=== PATIENT | male | born 1990 | race Caucasian/White ===

== ENCOUNTER 2024-04-07 15:08 | Inpatient (IN) | payer BC, OTHER ==
[2024-04-07 16:13] LABS: Basophils % (A) 1 %; Eosinophils # (A) 0.2 k/uL (0-0.7); Eosinophils % (A) 4 %; HCT 28.8 % (39.0-53.0); HGB 9.4 gm/dL (13.0-17.5); Lymphocytes # (A) 1.9 k/uL (1.0-4.8); Lymphocytes % (A) 33 %; MCH 28.6 pg (25.0-35.0); MCHC 32.7 g/dL (31.0-37.0); MCV 87.5 fL (80.0-100.0); Mean Platelet Volume 8.1; Monocytes # (A) 0.4 k/uL (0-1.0); Monocytes % (A) 6 %; Neutrophils # (A) 3.2 k/uL (1.3-7.7); Neutrophils % (A) 55 %; Platelet Count 236 k/uL (150-450); RBC 3.29 m/uL (4.30-5.90); WBC 5.8 k/uL (3.8-10.6)
[2024-04-07 16:39] LABS: ALT 25 U/L (4-49); AST 20 U/L (17-59); African American GFR (CKD) >90 (>60 ml/min/1.73 sqM); Albumin 3.4 g/dL (3.5-5.0); Alkaline Phosphatase 58 U/L (38-126); Anion Gap 7 mmol/L; Blood Urea Nitrogen 24 mg/dL (9-20); C Reactive Protein 0.7 mg/dL (<1.0); Calcium 9.2 mg/dL (8.4-10.2); Carbon Dioxide 20 mmol/L (22-30); Chloride 114 mmol/L (98-107); Glucose 97 mg/dL (74-99); Non-African American GFR(CKD) >90 (>60 ml/min/1.73 sqM); Potassium 4.7 mmol/L (3.5-5.1); Sodium 141 mmol/L (137-145); Total Bilirubin 0.5 mg/dL (0.2-1.3)
--- NOTE | 2024-04-07 16:41 | ED ---
General Adult HPI - General Chief complaint: Extremity Injury, Lower Stated complaint: R Foot Infection Time Seen by Provider: 04/07/24 15:17 Source: patient, EMS Mode of arrival: EMS - History of Present Illness Initial comments: This patient is a 33-year-old man with history of diabetes, transferred here from [facility] to have further evaluation related to right foot infection. The patient relates that over the past few days he has been having increasing pain mainly at the calcaneus of the right foot. He states that he does not have great sensation to the foot because he has severe neuropathy, but that the last time he had symptoms like this he had infection and it resulted in amputation of toes of the right foot. The patient does have ulceration to the distal tip of the right second digit. The patient had not noted systemic symptoms. At the other hospital he had x-rays of the foot suggestive of osteomyelitis, he received a dose of Zosyn and vancomycin and was transported here. The patient did also have duplex Doppler of the right lower extremity r eported to be negative for DVT. -: days(s) Location: right, lower extremity Radiation: non-radiation Quality: burning Consistency: constant Improves with: none Worsens with: none Associated Symptoms: denies other symptoms Treatments Prior to Arrival: other - Related Data Home Medications Medication Instructions Recorded Confirmed Atorvastatin [Lipitor] 20 mg PO HS 04/07/24 04/07/24 Insulin Aspart Prot/Insuln Asp 15 units SQ AC-BID PRN 04/07/24 04/07/24 [NovoLOG MIX 70-30 Flexpen] L.acidoph,Paracasei, B.lactis 1 cap PO DAILY 04/07/24 04/07/24 [Probiotic] Metoprolol Tartrate [Lopressor] 25 mg PO BID 04/07/24 04/07/24 lisinopriL 40 mg PO DAILY 04/07/24 04/07/24 Previous Rx's Medication Instructions Recorded Cefepime [Maxipime] 2 gm IVPB Q8H #126 each 04/13/24 Vancomycin 1,750 mg IVPB Q12HR #84 each 04/13/24 metroNIDAZOLE [Flagyl] 500 mg PO TID #90 tab 04/13/24 Acetaminophen Tab [Tylenol] 650 mg PO Q6HR PRN tab 04/14/24 Famotidine [Pepcid] 20 mg PO BID #60 tab 04/14/24 amLODIPine [Norvasc] 10 mg PO DAILY #30 tab 04/14/24 Ondansetron [Zofran] 4 mg PO Q8HR PRN #60 tab 04/18/24 Allergies Allergy/AdvReac Type Severity Reaction Status Date / Time No Known Allergies Allergy Verified 04/07/24 17:36 Review of Systems ROS Statement: Those systems with pertinent positive or pertinent negative responses have been documented in the HPI. ROS Other: All systems not noted in ROS Statement are negative. Constitutional: Denies: fever, chills Respiratory: Denies: cough, dyspnea Cardiovascular: Denies: chest pain, palpitations, edema, syncope Gastrointestinal: Denies: abdominal pain, vomiting, diarrhea Genitourinary: Denies: dysuria, hematuria Musculoskeletal: Reports: as per HPI, arthralgia. 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 History of Any Multi-Drug Resistant Organisms: None Reported Past Surgical History: Orthopedic Surgery Additional Past Surgical History / Comment(s): Left foot 2 first toes amputation, Right foot amp of middle toe and partial of great toe, Left foot surgery for charcots Past Anesthesia/Blood Transfusion Reactions: Previous Problems w/ Anesthesia Additional Past Anesthesia/Blood Transfusion Reaction / Comment(s): Patient verb waking up during one surgery Past Psychological History: No Psychological Hx Reported Smoking Status: Never smoker Past Alcohol Use History: None Reported Past Drug Use History: None Reported - Past Family History Father Family Medical History: CVA/TIA Mother Family Medical History: Diabetes Mellitus General Exam General appearance: alert, in no apparent distress Head exam: Present: atraumatic, normocephalic Eye exam: Present: normal appearance Neck exam: Present: normal inspection Respiratory exam: Present: normal lung sounds bilaterally. Absent: respiratory distress, wheezes, rales, rhonchi, stridor, accessory muscle use Cardiovascular Exam: Present: regular rate, normal rhythm, normal heart sounds. Absent: systolic murmur, diastolic murmur, rubs, gallop GI/Abdominal exam: Present: soft. Absent: distended, tenderness, guarding, rebound, rigid, mass Extremities exam: Present: normal capillary refill. Absent: pedal edema, calf tenderness Right Knee exam: Present: normal inspection, full ROM. Absent: tenderness, swelling Lower Leg exam: Present: normal inspection, full ROM. Absent: tenderness, swelling Ankle exam: Present: normal inspection, full ROM. Absent: tenderness, swelling Foot/Toe exam: Present: swelling (Distal second digit), erythema (The patient does have ulceration to the distal tip of second digit), amputation (Amputation of first and third toes) Neurovascular tendon exam: Present: no vascular compromise, sensory deficit (Chronic). Absent: motor deficit, tendon deficit Back exam: Present: normal inspection Neurological exam: Present: alert. Absent: motor sensory deficit Skin exam: Present: warm, dry, other (Ulceration tip of right second toe). Absent: rash Course Vital Signs 04/07/24 04/07/24 04/07/24 15:16 16:30 17:37 Temperature 98.0 F Pulse Rate 66 69 68 Respiratory 16 16 16 Rate Blood Pressure 140/87 144/89 134/86 O2 Sat by Pulse 99 99 98 Oximetry Medical Decision Making - Medical Decision Making Was pt. sent in by a medical professional or institution (, PA, PALEOLOGIST, urgent care, hospital, or [facility]...) When possible be specific @ -Patient is a transfer from [facility] Did you speak to anyone other than the patient for history (EMS, parent, family, police, friend...)? What history was obtained from this source @ -[No] Did you review nursing and triage notes (agree or disagree)? Why? @ -[I reviewed and agree with nursing and triage notes] Were old charts reviewed (outside hosp., previous admission, EMS record, old EKG, old radiological studies, urgent care reports/EKG's, [facility] records)? Report findings @ -[The transfer charts were reviewed] Differential Diagnosis (chest pain, altered mental status, abdominal pain women, abdominal pain men, vaginal bleeding, weakness, fever, dyspnea, syncope, headache, dizziness, GI bleed, back pain, seizure, CVA, palpatations, mental health, musculoskeletal)? @ -Differential Musculoskeletal fracture, arthritis, septic arthritis, osteomyelitis, bursitis, cellulitis, muscle spasm, nerve compression, DVT, arterial occlusion, This is not meant to be in all inclusive list EKG interpreted by me (3pts min.). @ -[As above] X-rays interpreted by me (1pt min.). @ -[None done] CT interpreted by me (1pt min.). @ -[None done] U/S interpreted by me (1pt. min.). @ -[None done] What testing was considered but not performed or refused? (CT, X-rays, U/S, labs)? Why? @ -[None] What meds were considered but not given or refused? Why? @ -[None] Did you discuss the management of the patient with other professionals (lacy aelxandre i.e. , PA, PALEOLOGIST, lab, RT, psych nurse, social services designee, accountant bookkeeper, teacher, [employer]oc airspace control officer, employment evaluator/case manager)? Give summary @ -[Case discussed with admitting physician and treatment recommendations i ncorporated Was smoking cessation discussed for >3mins.? @ -[No] Was critical care preformed (if so, how long)? @ -[No] Were there social determinants of health that impacted care today? How? (Homel essness, low income, unemployed, alcoholism, drug addiction, transportation, low edu. Level, literacy, decrease access to med. care, [facility], rehab)? @ -[No] Was there de-escalation of care discussed even if they declined (Discuss DNR or withdrawal of care, Hospice)? DNR status @ -[No] What co-morbidities impacted this encounter? (DM, HTN, Smoking, COPD, CAD, Cancer, CVA, ARF, Chemo, Hep., AIDS, mental health diagnosis, sleep apnea, morbid obesity)? @ -[None] Was patient admitted / discharged? Hospital course, mention meds given and route, prescriptions, significant lab abnormalities, going to OR and other pertinent info. @ -Patient will be admitted, antibiotics continued Undiagnosed new problem with uncertain prognosis? @ -[No] Drug Therapy requiring intensive monitoring for toxicity (Heparin, Nitro, Insulin, Cardizem)? @ -[No] Were any procedures done? @ -[No] Diagnosis/symptom? @ -[Osteomyelitis right foot Acute, or Chronic, or Acute on Chronic? @ -[Acute on chronic Uncomplicated (without systemic symptoms) or Complicated (systemic symptoms)? @ -[Uncomplicated Side effects of treatment? @ -[No] Exacerbation, Progression, or Severe Exacerbation? @ -[No] Poses a threat to life or bodily function? How? (Chest pain, [place], [place], pneumonia, PE, COPD, DKA, ARF, appy, cholecystitis, CVA, Diverticulitis, Homicidal, Suicidal, threat to staff... and all critical care pts) @ -This infection poses threat of possible amputation. - Lab Data Result diagrams: 04/12/24 06:15 04/13/24 14:32 Lab Results 04/07/24 04/07/24 04/07/24 Range/Units 16:03 16:03 16:42 WBC 5.8 (3.8-10.6) k/uL RBC 3.29 L (4.30-5.90) m/uL Hgb 9.4 L (13.0-17.5) gm/dL Hct 28.8 L (39.0-53.0) % MCV 87.5 (80.0-100.0) fL MCH 28.6 (25.0-35.0) pg MCHC 32.7 (31.0-37.0) g/dL RDW 14.0 (11.5-15.5) % Plt Count 236 (150-450) k/uL MPV 8.1 Immature Gran % (Auto) % Absolute Nucleated RBC % Neutrophils % 55 % Lymphocytes % 33 % Monocytes % 6 % Eosinophils % 4 % Basophils % 1 % Immature Gran # (0.00-0.04) X 10*3/uL Neutrophils # 3.2 (1.3-7.7) k/uL Lymphocytes # 1.9 (1.0-4.8) k/uL Monocytes # 0.4 (0-1.0) k/uL Eosinophils # 0.2 (0-0.7) k/uL Basophils # 0.0 (0-0.2) k/uL NRBC/100 WBC Diff (0.00-0.01) X 10*3/uL ESR (0-15) mm/Hr Sodium 141 (137-145) mmol/L Potassium 4.7 (3.5-5.1) mmol/L Chloride 114 H (98-107) mmol/L Carbon Dioxide 20 L (22-30) mmol/L Anion Gap 7 mmol/L BUN 24 H (9-20) mg/dL Creatinine 0.96 (0.66-1.25) mg/dL Est GFR (CKD-EPI) (>=60) Est GFR (CKD-EPI)AfAm >90 (>60 ml/min/1.73 sqM) Est GFR (CKD-EPI)NonAf >90 (>60 ml/min/1.73 sqM) BUN/Creatinine Ratio (12.00-20.00) Ratio Glucose 97 (74-99) mg/dL POC Glucose (mg/dL) 103 (70-110) mg/dL POC Glu Chief Executive Or Managing Director ID Laith Joyce [address] Glu mg/dL mg/dL Hemoglobin A1c (<=6.0) % Calcium 9.2 (8.4-10.2) mg/dL Magnesium (1.5-2.4) mg/dL Total Bilirubin 0.5 (0.2-1.3) mg/dL AST 20 (17-59) U/L ALT 25 (4-49) U/L Alkaline Phosphatase 58 (38-126) U/L C-Reactive Protein 0.7 (<1.0) mg/dL Total Protein 6.0 L (6.3-8.2) g/dL Albumin 3.4 L (3.5-5.0) g/dL Globulin (1.6-3.3) g/dL Albumin/Globulin Ratio (1.60-3.17) Ratio Vancomycin Trough ug/mL 04/07/24 04/08/24 04/08/24 Range/Units 21:07 05:14 05:14 WBC 6.74 (3.8-10.6) k/uL RBC 3.39 L (4.30-5.90) m/uL Hgb 9.6 L (13.0-17.5) gm/dL Hct 29.8 L (39.0-53.0) % MCV 87.9 (80.0-100.0) fL MCH 28.3 (25.0-35.0) pg MCHC 32.2 (31.0-37.0) g/dL RDW 13.5 (11.5-15.5) % Plt Count 263 (150-450) k/uL MPV 10.6 Immature Gran % (Auto) 0.30 % Absolute Nucleated RBC 0 % Neutrophils % 62.0 % Lymphocytes % 25.5 % Monocytes % 7.6 % Eosinophils % 4.0 % Basophils % 0.6 % Immature Gran # 0.02 (0.00-0.04) X 10*3/uL Neutrophils # 4.18 (1.3-7.7) k/uL Lymphocytes # 1.72 (1.0-4.8) k/uL Monocytes # 0.51 (0-1.0) k/uL Eosinophils # 0.27 (0-0.7) k/uL Basophils # 0.04 (0-0.2) k/uL NRBC/100 WBC Diff 0 (0.00-0.01) X 10*3/uL ESR (0-15) mm/Hr Sodium (137-145) mmol/L Potassium (3.5-5.1) mmol/L Chloride (98-107) mmol/L Carbon Dioxide (22-30) mmol/L Anion Gap mmol/L BUN (9-20) mg/dL Creatinine (0.66-1.25) mg/dL Est GFR (CKD-EPI) (>=60) Est GFR (CKD-EPI)AfAm (>60 ml/min/1.73 sqM) Est GFR (CKD-EPI)NonAf (>60 ml/min/1.73 sqM) BUN/Creatinine Ratio (12.00-20.00) Ratio Glucose (74-99) mg/dL POC Glucose (mg/dL) 204 H (70-110) mg/dL POC Glu Chief Executive Or Managing Director SITA Karlo Johns [address] Glu mg/dL 137 mg/dL Hemoglobin A1c 6.4 H (<=6.0) % Calcium (8.4-10.2) mg/dL Magnesium (1.5-2.4) mg/dL Total Bilirubin (0.2-1.3) mg/dL AST (17-59) U/L ALT (4-49) U/L Alkaline Phosphatase (38-126) U/L C-Reactive Protein (<1.0) mg/dL Total Protein (6.3-8.2) g/dL Albumin (3.5-5.0) g/dL Globulin (1.6-3.3) g/dL Albumin/Globulin Ratio (1.60-3.17) Ratio Vancomycin Trough ug/mL 04/08/24 04/08/24 04/08/24 Range/Units 05:14 06:21 12:04 WBC (3.8-10.6) k/uL RBC (4.30-5.90) m/uL Hgb (13.0-17.5) gm/dL Hct (39.0-53.0) % MCV (80.0-100.0) fL MCH (25.0-35.0) pg MCHC (31.0-37.0) g/dL RDW (11.5-15.5) % Plt Count (150-450) k/uL MPV Immature Gran % (Auto) % Absolute Nucleated RBC % Neutrophils % % Lymphocytes % % Monocytes % % Eosinophils % % Basophils % % Immature Gran # (0.00-0.04) X 10*3/uL Neutrophils # (1.3-7.7) k/uL Lymphocytes # (1.0-4.8) k/uL Monocytes # (0-1.0) k/uL Eosinophils # (0-0.7) k/uL Basophils # (0-0.2) k/uL NRBC/100 WBC Diff (0.00-0.01) X 10*3/uL ESR (0-15) mm/Hr Sodium 144 (137-145) mmol/L Potassium 4.7 (3.5-5.1) mmol/L Chloride 112 H (98-107) mmol/L Carbon Dioxide 22.2 (22-30) mmol/L Anion Gap 9.80 mmol/L BUN 21.2 (9-20) mg/dL Creatinine 1.2 (0.66-1.25) mg/dL Est GFR (CKD-EPI) 81 (>=60) Est GFR (CKD-EPI)AfAm (>60 ml/min/1.73 sqM) Est GFR (CKD-EPI)NonAf (>60 ml/min/1.73 sqM) BUN/Creatinine Ratio 17.67 (12.00-20.00) Ratio Glucose 166 H (74-99) mg/dL POC Glucose (mg/dL) 140 H 230 H (70-110) mg/dL POC Glu Chief Executive Or Managing Director Karlo Schneider Ashleigh [address] Glu mg/dL mg/dL Hemoglobin A1c (<=6.0) % Calcium 9.0 (8.4-10.2) mg/dL Magnesium (1.5-2.4) mg/dL Total Bilirubin 0.2 L (0.2-1.3) mg/dL AST 17 (17-59) U/L ALT 26 (4-49) U/L Alkaline Phosphatase 60 (38-126) U/L C-Reactive Protein (<1.0) mg/dL Total Protein 6.0 L (6.3-8.2) g/dL Albumin 3.6 L (3.5-5.0) g/dL Globulin 2.4 (1.6-3.3) g/dL Albumin/Globulin Ratio 1.50 L (1.60-3.17) Ratio Vancomycin Trough ug/mL 04/08/24 04/08/24 04/09/24 Range/Units 17:09 20:33 05:44 WBC (3.8-10.6) k/uL RBC (4.30-5.90) m/uL Hgb (13.0-17.5) gm/dL Hct (39.0-53.0) % MCV (80.0-100.0) fL MCH (25.0-35.0) pg MCHC (31.0-37.0) g/dL RDW (11.5-15.5) % Plt Count (150-450) k/uL MPV Immature Gran % (Auto) % Absolute Nucleated RBC % Neutrophils % % Lymphocytes % % Monocytes % % Eosinophils % % Basophils % % Immature Gran # (0.00-0.04) X 10*3/uL Neutrophils # (1.3-7.7) k/uL Lymphocytes # (1.0-4.8) k/uL Monocytes # (0-1.0) k/uL Eosinophils # (0-0.7) k/uL Basophils # (0-0.2) k/uL NRBC/100 WBC Diff (0.00-0.01) X 10*3/uL ESR (0-15) mm/Hr Sodium (137-145) mmol/L Potassium (3.5-5.1) mmol/L Chloride (98-107) mmol/L Carbon Dioxide (22-30) mmol/L Anion Gap mmol/L BUN (9-20) mg/dL Creatinine (0.66-1.25) mg/dL Est GFR (CKD-EPI) (>=60) Est GFR (CKD-EPI)AfAm (>60 ml/min/1.73 sqM) Est GFR (CKD-EPI)NonAf (>60 ml/min/1.73 sqM) BUN/Creatinine Ratio (12.00-20.00) Ratio Glucose (74-99) mg/dL POC Glucose (mg/dL) 148 H 219 H 163 H (70-110) mg/dL POC Glu Chief Executive Or Managing Director SITA De Jesus, Fariha Bower, Anai Bower, Anai [address] Glu mg/dL mg/dL Hemoglobin A1c (<=6.0) % Calcium (8.4-10.2) mg/dL Magnesium (1.5-2.4) mg/dL Total Bilirubin (0.2-1.3) mg/dL AST (17-59) U/L ALT (4-49) U/L Alkaline Phosphatase (38-126) U/L C-Reactive Protein (<1.0) mg/dL Total Protein (6.3-8.2) g/dL Albumin (3.5-5.0) g/dL Globulin (1.6-3.3) g/dL Albumin/Globulin Ratio (1.60-3.17) Ratio Vancomycin Trough ug/mL 04/09/24 04/09/24 04/09/24 Range/Units 06:57 06:57 06:57 WBC 6.52 (3.8-10.6) k/uL RBC 3.47 L (4.30-5.90) m/uL Hgb 9.6 L (13.0-17.5) gm/dL Hct 30.1 L (39.0-53.0) % MCV 86.7 (80.0-100.0) fL MCH 27.7 (25.0-35.0) pg MCHC 31.9 L (31.0-37.0) g/dL RDW 13.3 (11.5-15.5) % Plt Count 244 (150-450) k/uL MPV 10.2 Immature Gran % (Auto) 0.30 % Absolute Nucleated RBC 0 % Neutrophils % 79.0 % Lymphocytes % 10.4 % Monocytes % 8.6 % Eosinophils % 1.2 % Basophils % 0.5 % Immature Gran # 0.02 (0.00-0.04) X 10*3/uL Neutrophils # 5.15 (1.3-7.7) k/uL Lymphocytes # 0.68 L (1.0-4.8) k/uL Monocytes # 0.56 (0-1.0) k/uL Eosinophils # 0.08 (0-0.7) k/uL Basophils # 0.03 (0-0.2) k/uL NRBC/100 WBC Diff 0 (0.00-0.01) X 10*3/uL ESR 20 H (0-15) mm/Hr Sodium 142 (137-145) mmol/L Potassium 4.7 (3.5-5.1) mmol/L Chloride 112 H (98-107) mmol/L Carbon Dioxide 21.0 L (22-30) mmol/L Anion Gap 9.00 mmol/L BUN 19.7 (9-20) mg/dL Creatinine 1.5 (0.66-1.25) mg/dL Est GFR (CKD-EPI) 62 (>=60) Est GFR (CKD-EPI)AfAm (>60 ml/min/1.73 sqM) Est GFR (CKD-EPI)NonAf (>60 ml/min/1.73 sqM) BUN/Creatinine Ratio 13.13 (12.00-20.00) Ratio Glucose 152 H (74-99) mg/dL POC Glucose (mg/dL) (70-110) mg/dL POC Glu Chief Executive Or Managing Director ID Estimated Ave Glu mg/dL mg/dL Hemoglobin A1c (<=6.0) % Calcium 9.0 (8.4-10.2) mg/dL Magnesium (1.5-2.4) mg/dL Total Bilirubin 0.3 (0.2-1.3) mg/dL AST 18 (17-59) U/L ALT 25 (4-49) U/L Alkaline Phosphatase 61 (38-126) U/L C-Reactive Protein 0.40 (<1.0) mg/dL Total Protein 6.1 L (6.3-8.2) g/dL Albumin 3.7 L (3.5-5.0) g/dL Globulin 2.4 (1.6-3.3) g/dL Albumin/Globulin Ratio 1.54 L (1.60-3.17) Ratio Vancomycin Trough 19.8 ug/mL 04/09/24 04/09/24 04/09/24 Range/Units 12:21 17:29 20:35 WBC (3.8-10.6) k/uL RBC (4.30-5.90) m/uL Hgb (13.0-17.5) gm/dL Hct (39.0-53.0) % MCV (80.0-100.0) fL MCH (25.0-35.0) pg MCHC (31.0-37.0) g/dL RDW (11.5-15.5) % Plt Count (150-450) k/uL MPV Immature Gran % (Auto) % Absolute Nucleated RBC % Neutrophils % % Lymphocytes % % Monocytes % % Eosinophils % % Basophils % % Immature Gran # (0.00-0.04) X 10*3/uL Neutrophils # (1.3-7.7) k/uL Lymphocytes # (1.0-4.8) k/uL Monocytes # (0-1.0) k/uL Eosinophils # (0-0.7) k/uL Basophils # (0-0.2) k/uL NRBC/100 WBC Diff (0.00-0.01) X 10*3/uL ESR (0-15) mm/Hr Sodium (137-145) mmol/L Potassium (3.5-5.1) mmol/L Chloride (98-107) mmol/L Carbon Dioxide (22-30) mmol/L Anion Gap mmol/L BUN (9-20) mg/dL Creatinine (0.66-1.25) mg/dL Est GFR (CKD-EPI) (>=60) Est GFR (CKD-EPI)AfAm (>60 ml/min/1.73 sqM) Est GFR (CKD-EPI)NonAf (>60 ml/min/1.73 sqM) BUN/Creatinine Ratio (12.00-20.00) Ratio Glucose (74-99) mg/dL POC Glucose (mg/dL) 214 H 209 H 217 H (70-110) mg/dL POC Glu Chief Executive Or Managing Director SITA De Jesus, Fariha Moran Gregory [address] Glu mg/dL mg/dL Hemoglobin A1c (<=6.0) % Calcium (8.4-10.2) mg/dL Magnesium (1.5-2.4) mg/dL Total Bilirubin (0.2-1.3) mg/dL AST (17-59) U/L ALT (4-49) U/L Alkaline Phosphatase (38-126) U/L C-Reactive Protein (<1.0) mg/dL Total Protein (6.3-8.2) g/dL Albumin (3.5-5.0) g/dL Globulin (1.6-3.3) g/dL Albumin/Globulin Ratio (1.60-3.17) Ratio Vancomycin Trough ug/mL 04/10/24 04/10/24 04/10/24 Range/Units 06:25 07:22 07:22 WBC 4.90 (3.8-10.6) k/uL RBC 3.04 L (4.30-5.90) m/uL Hgb 8.6 L (13.0-17.5) gm/dL Hct 26.9 L (39.0-53.0) % MCV 88.5 (80.0-100.0) fL MCH 28.3 (25.0-35.0) pg MCHC 32.0 (31.0-37.0) g/dL RDW 13.2 (11.5-15.5) % Plt Count 201 (150-450) k/uL MPV 10.3 Immature Gran % (Auto) 0.20 % Absolute Nucleated RBC 0 % Neutrophils % 55.3 % Lymphocytes % 28.6 % Monocytes % 15.1 % Eosinophils % 0.4 % Basophils % 0.4 % Immature Gran # 0.01 (0.00-0.04) X 10*3/uL Neutrophils # 2.71 (1.3-7.7) k/uL Lymphocytes # 1.40 (1.0-4.8) k/uL Monocytes # 0.74 (0-1.0) k/uL Eosinophils # 0.02 L (0-0.7) k/uL Basophils # 0.02 (0-0.2) k/uL NRBC/100 WBC Diff 0 (0.00-0.01) X 10*3/uL ESR (0-15) mm/Hr Sodium 142 (137-145) mmol/L Potassium 4.4 (3.5-5.1) mmol/L Chloride 112 H (98-107) mmol/L Carbon Dioxide 20.8 L (22-30) mmol/L Anion Gap 9.20 mmol/L BUN 15.3 (9-20) mg/dL Creatinine 1.3 (0.66-1.25) mg/dL Est GFR (CKD-EPI) 74 (>=60) Est GFR (CKD-EPI)AfAm (>60 ml/min/1.73 sqM) Est GFR (CKD-EPI)NonAf (>60 ml/min/1.73 sqM) BUN/Creatinine Ratio 11.77 L (12.00-20.00) Ratio Glucose 141 H (74-99) mg/dL POC Glucose (mg/dL) 166 H (70-110) mg/dL POC Glu Chief Executive Or Managing Director SITA Karlo Johns [address] Glu mg/dL mg/dL Hemoglobin A1c (<=6.0) % Calcium 9.0 (8.4-10.2) mg/dL Magnesium (1.5-2.4) mg/dL Total Bilirubin <0.2 L (0.2-1.3) mg/dL AST 20 (17-59) U/L ALT 23 (4-49) U/L Alkaline Phosphatase 54 (38-126) U/L C-Reactive Protein (<1.0) mg/dL Total Protein 5.8 L (6.3-8.2) g/dL Albumin 3.5 L (3.5-5.0) g/dL Globulin 2.3 (1.6-3.3) g/dL Albumin/Globulin Ratio 1.52 L (1.60-3.17) Ratio Vancomycin Trough ug/mL 04/10/24 04/10/24 04/10/24 Range/Units 08:01 12:00 17:06 WBC (3.8-10.6) k/uL RBC (4.30-5.90) m/uL Hgb (13.0-17.5) gm/dL Hct (39.0-53.0) % MCV (80.0-100.0) fL MCH (25.0-35.0) pg MCHC (31.0-37.0) g/dL RDW (11.5-15.5) % Plt Count (150-450) k/uL MPV Immature Gran % (Auto) % Absolute Nucleated RBC % Neutrophils % % Lymphocytes % % Monocytes % % Eosinophils % % Basophils % % Immature Gran # (0.00-0.04) X 10*3/uL Neutrophils # (1.3-7.7) k/uL Lymphocytes # (1.0-4.8) k/uL Monocytes # (0-1.0) k/uL Eosinophils # (0-0.7) k/uL Basophils # (0-0.2) k/uL NRBC/100 WBC Diff (0.00-0.01) X 10*3/uL ESR (0-15) mm/Hr Sodium (137-145) mmol/L Potassium (3.5-5.1) mmol/L Chloride (98-107) mmol/L Carbon Dioxide (22-30) mmol/L Anion Gap mmol/L BUN (9-20) mg/dL Creatinine (0.66-1.25) mg/dL Est GFR (CKD-EPI) (>=60) Est GFR (CKD-EPI)AfAm (>60 ml/min/1.73 sqM) Est GFR (CKD-EPI)NonAf (>60 ml/min/1.73 sqM) BUN/Creatinine Ratio (12.00-20.00) Ratio Glucose (74-99) mg/dL POC Glucose (mg/dL) 179 H 195 H (70-110) mg/dL POC Glu Chief Executive Or Managing Director ID Pelka, Lidya Pelka, Lidya [address] Glu mg/dL mg/dL Hemoglobin A1c (<=6.0) % Calcium (8.4-10.2) mg/dL Magnesium (1.5-2.4) mg/dL Total Bilirubin (0.2-1.3) mg/dL AST (17-59) U/L ALT (4-49) U/L Alkaline Phosphatase (38-126) U/L C-Reactive Protein (<1.0) mg/dL Total Protein (6.3-8.2) g/dL Albumin (3.5-5.0) g/dL Globulin (1.6-3.3) g/dL Albumin/Globulin Ratio (1.60-3.17) Ratio Vancomycin Trough 15.8 ug/mL 04/10/24 04/11/2404/11/24 Range/Units 20:21 06:02 06:54 WBC 5.24 (3.8-10.6) k/uL RBC 3.09 L (4.30-5.90) m/uL Hgb 8.5 L (13.0-17.5) gm/dL Hct 26.9 L (39.0-53.0) % MCV 87.1 (80.0-100.0) fL MCH 27.5 (25.0-35.0) pg MCHC 31.6 L (31.0-37.0) g/dL RDW 13.2 (11.5-15.5) % Plt Count 199 (150-450) k/uL MPV 9.9 Immature Gran % (Auto) 0.20 % Absolute Nucleated RBC 0 % Neutrophils % 57.8 % Lymphocytes % 27.1 % Monocytes % 11.1 % Eosinophils % 3.4 % Basophils % 0.4 % Immature Gran # 0.01 (0.00-0.04) X 10*3/uL Neutrophils # 3.03 (1.3-7.7) k/uL Lymphocytes # 1.42 (1.0-4.8) k/uL Monocytes # 0.58 (0-1.0) k/uL Eosinophils # 0.18 (0-0.7) k/uL Basophils # 0.02 (0-0.2) k/uL NRBC/100 WBC Diff 0 (0.00-0.01) X 10*3/uL ESR (0-15) mm/Hr Sodium (137-145) mmol/L Potassium (3.5-5.1) mmol/L Chloride (98-107) mmol/L Carbon Dioxide (22-30) mmol/L Anion Gap mmol/L BUN (9-20) mg/dL Creatinine (0.66-1.25) mg/dL Est GFR (CKD-EPI) (>=60) Est GFR (CKD-EPI)AfAm (>60 ml/min/1.73 sqM) Est GFR (CKD-EPI)NonAf (>60 ml/min/1.73 sqM) BUN/Creatinine Ratio (12.00-20.00) Ratio Glucose (74-99) mg/dL POC Glucose (mg/dL) 204 H 158 H (70-110) mg/dL POC Glu Chief Executive Or Managing Director ID Stefan, Lyn Aviles, Lyn [address] Glu mg/dL mg/dL Hemoglobin A1c (<=6.0) % Calcium (8.4-10.2) mg/dL Magnesium (1.5-2.4) mg/dL Total Bilirubin (0.2-1.3) mg/dL AST (17-59) U/L ALT (4-49) U/L Alkaline Phosphatase (38-126) U/L C-Reactive Protein (<1.0) mg/dL Total Protein (6.3-8.2) g/dL Albumin (3.5-5.0) g/dL Globulin (1.6-3.3) g/dL Albumin/Globulin Ratio (1.60-3.17) Ratio Vancomycin Trough ug/mL 04/11/24 Range/Units 06:54 WBC (3.8-10.6) k/uL RBC (4.30-5.90) m/uL Hgb (13.0-17.5) gm/dL Hct (39.0-53.0) % MCV (80.0-100.0) fL MCH (25.0-35.0) pg MCHC (31.0-37.0) g/dL RDW (11.5-15.5) % Plt Count (150-450) k/uL MPV Immature Gran % (Auto) % Absolute Nucleated RBC % Neutrophils % % Lymphocytes % % Monocytes % % Eosinophils % % Basophils % % Immature Gran # (0.00-0.04) X 10*3/uL Neutrophils # (1.3-7.7) k/uL Lymphocytes # (1.0-4.8) k/uL Monocytes # (0-1.0) k/uL Eosinophils # (0-0.7) k/uL Basophils # (0-0.2) k/uL NRBC/100 WBC Diff (0.00-0.01) X 10*3/uL ESR (0-15) mm/Hr Sodium 141 (137-145) mmol/L Potassium 4.3 (3.5-5.1) mmol/L Chloride 110 H (98-107) mmol/L Carbon Dioxide 22.0 (22-30) mmol/L Anion Gap 9.00 mmol/L BUN 16.9 (9-20) mg/dL Creatinine 1.2 (0.66-1.25) mg/dL Est GFR (CKD-EPI) 81 (>=60) Est GFR (CKD-EPI)AfAm (>60 ml/min/1.73 sqM) Est GFR (CKD-EPI)NonAf (>60 ml/min/1.73 sqM) BUN/Creatinine Ratio 14.08 (12.00-20.00) Ratio Glucose 152 H (74-99) mg/dL POC Glucose (mg/dL) (70-110) mg/dL POC Glu Chief Executive Or Managing Director ID [address]imated [address] Glu mg/dL mg/dL Hemoglobin A1c (<=6.0) % Calcium 8.5 L (8.4-10.2) mg/dL Magnesium 1.9 (1.5-2.4) mg/dL Total Bilirubin (0.2-1.3) mg/dL AST (17-59) U/L ALT (4-49) U/L Alkaline Phosphatase (38-126) U/L C-Reactive Protein (<1.0) mg/dL Total Protein (6.3-8.2) g/dL Albumin (3.5-5.0) g/dL Globulin (1.6-3.3) g/dL Albumin/Globulin Ratio (1.60-3.17) Ratio Vancomycin Trough ug/mL Disposition Clinical Impression: Diabetic foot ulcer Disposition: ADMITTED IP TO THIS HOSP Condition: Stable Is patient prescribed a controlled substance at d/c from ED?: No
[2024-04-07] MEDS ORDERED: NALOXONE 0.4 MG/ML 1 ML VIAL IV PRN (16:42)
[2024-04-07 16:44] LABS: Glucose,Whole Blood 103 mg/dL (70-110)
--- NOTE | 2024-04-07 17:01 | P.HPIM ---
History of Present Illness H&P Date: 04/07/24 Chief Complaint: Toe discharge This is a 33-year-old white male who reported to the hospital transfer from [facility] for evaluation for right foot infection. Patient states that for the past few days He has been Noticing dischargeFrom his second toe on the right foot. He denies subjective fever or chills, he noted some swelling in the right lower extremity bilateral lower symptom to Doppler was performed at the outside facility and was negative for DVT. He denies pain in his right foot, no hematuria dysuria hematemesis or hematochezia. No Chest pain or shortness of breath. At the time of examination patient's family are at bedside. Review of Systems 10 systems reviewed, pertinent positive and negative findings as in HPI, no ch est pain no abdominal pain. 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 History of Any Multi-Drug Resistant Organisms: None Reported Past Surgical History: Orthopedic Surgery Additional Past Surgical History / Comment(s): Left foot 2 first toes amputat ion, Right foot amp of middle toe and partial of great toe, Left foot surgery for charcots Past Anesthesia/Blood Transfusion Reactions: Previous Problems w/ Anesthesia Additional Past Anesthesia/Blood Transfusion Reaction / Comment(s): Patient verb waking up during one surgery Past Psychological History: No Psychological Hx Reported Smoking Status: Never smoker Past Alcohol Use History: None Reported Past Drug Use History: None Reported - Past Family History Father Family Medical History: CVA/TIA Mother Family Medical History: Diabetes Mellitus Medications and Allergies Home Medications Medication Instructions Recorded Confirmed Type Semaglutide [Ozempic] 1 mg SQ STEVENS 07/15/23 07/15/23 History Cefepime [Maxipime] 2 gm IVPB Q8H #126 each 07/19/23 Rx Insuln Asp Prt/Insulin Aspart 15 unit SQ AC-BID #10 ml 07/19/23 Rx [NovoLOG MIX 70-30 VIAL] lisinopriL [Prinivil] 10 mg PO DAILY #30 tab 07/19/23 Rx metroNIDAZOLE [Flagyl] 500 mg PO TID #90 tab 07/19/23 Rx Allergies Allergy/AdvReac Type Severity Reaction Status Date / Time No Known Allergies Allergy Verified 07/15/23 17:41 Physical Exam Vitals: Vital Signs Temp Pulse Resp BP Pulse Ox 04/07/24 16:30 69 16 144/89 99 04/07/24 15:16 98.0 F 66 16 140/87 99 Intake and Output 04/07/24 04/07/24 04/07/24 06:59 14:59 22:59 Other: Weight 102.058 kg Constitutional: No acute distress, conversant, pleasant Eyes: Anicteric sclerae, moist conjunctiva, no lid-lag, PERRLA ENMT: NC/AT,Oropharynx clear, no erythema, exudates Neck:Supple, FROM, no masses, or JVD, No carotid bruits; No thyromegaly Lungs: Clear to auscultation, Clear to percussion, Normal respiratory effort, no accessory muscle use Cardiovascular: Heart regular in rate and rhythm, No murmurs, gallops, or rubs no peripheral edema Abdominal: Soft Nontender, nom distended, no guarding, no rebound or rigidity, Normoactive bowel sounds No hepatomegaly, No splenomegaly, No palpable mass No abdominal wall hernia noted Skin: Normal temperature, tone, texture, turgor, No induration No subcutaneous nodules, No rash, lesions, No ulcers Extremities:No digital cyanosis No clubbing, Pedal pulses intact and symmetrical , Right foot status post mechanical and consultation, second toe with discharge Psychiatric: Alert and oriented to person, place and time, Appropriate affect Intact judgement Neuro: Muscles Strength 5/5 in all 4 extremities, Sensation to light touch grossly present throughout, Cranial nerves II-XII grossly intact. No focal sensory deficits Results CBC & Chem 7: 04/07/24 16:03 04/07/24 16:03 Labs: Abnormal Lab Results - Last 24 Hours (Table) 04/07/24 04/07/24 Range/Units 16:03 16:03 RBC 3.29 L (4.30-5.90) m/uL Hgb 9.4 L (13.0-17.5) gm/dL Hct 28.8 L (39.0-53.0) % Chloride 114 H (98-107) mmol/L Carbon Dioxide 20 L (22-30) mmol/L BUN 24 H (9-20) mg/dL Total Protein 6.0 L (6.3-8.2) g/dL Albumin 3.4 L (3.5-5.0) g/dL Assessment and Plan Plan: Assessment and plan: 1.Right foot/second toe cellulitis with suspected osteomyelitis: Patient underwent an x-ray at the outside facility suggestive for osteomyelitis, history of vancomycin and Zosyn, continue vancomycin and Zosyn, infectious disease consultation podiatry consultation. Possibly needing an MRI.Lower extremity Dopplers negative for DVT at the outside facility 2. Hypovolemia: Normal saline at 75 L/h. 3.Diabetes type 2With hyperglycemia: Place on Insulin sliding scale. 4.Essential hypertension: Continue to hold off on antihypertensives until patient is more hemodynamically stable. Disposition: Home in the next 2-3 days pending clinical progression.
[2024-04-07] MEDS ORDERED: VANCOMYCIN IV PER PHARMACY 1 EACH MISC MISCELLANE PRN (17:03)
[2024-04-07] MEDS: SODIUM CHLORIDE 0.9% 1,000 ML IV SCH (17:04)
[2024-04-07] MEDS ORDERED: DEXTROSE 50% SYRINGE 50 ML IVP PRN ×2 (17:06)
[2024-04-07] MEDS: INSULIN ASPART (NovoLOG) 100 UNIT/ML VIAL SQ SCH (17:13)
[2024-04-07] MEDS: SODIUM CHLORIDE 0.9% 1,000 ML IV STA (17:16)
[2024-04-07] MEDS: VANCOMYCIN 1,750 MG in SODIUM CHLORIDE 0.9% 500 ML 500 ML IVPB ONE (17:29)
--- NOTE | 2024-04-07 18:44 | P.GSCN ---
History of Present Illness Consult date: 04/07/24 Reason for Consult: right toe wound and lower extremity swelling. History of present illness: 33-year-old male transfer from [facility] for evaluation for right foot infection. Patient states new onset of swelling in the right lower extremity without significant pain. He was seen by a physician who was concerned for DVT and was sent to the hospital. He has a history of multiple foot surgeries from his [employer]. He denies subjective fever or chills. He did have an ultrasound that was negative for DVT. Review of Systems All systems: negative (what is mentioned in the PMH or HPI) 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 History of Any Multi-Drug Resistant Organisms: None Reported Past Surgical History: Orthopedic Surgery Additional Past Surgical History / Comment(s): Left foot 2 first toes amputation, Right foot amp of middle toe and right great toe, Left foot surgery for charcots Past Anesthesia/Blood Transfusion Reactions: Previous Problems w/ Anesthesia Additional Past Anesthesia/Blood Transfusion Reaction / Comm: Patient verb waking up during one surgery Past Psychological History: No Psychological Hx Reported Smoking Status: Never smoker Past Alcohol Use History: None Reported Past Drug Use History: None Reported - Past Family History Father Family Medical History: CVA/TIA Mother Family Medical History: Diabetes Mellitus Medications and Allergies Home Medications Medication Instructions Recorded Confirmed Type Apixaban [Eliquis] See Taper PO DIRECTED 04/07/24 04/07/24 History Atorvastatin [Lipitor] 20 mg PO HS 04/07/24 04/07/24 History Insulin Aspart Prot/Insuln Asp 15 units SQ AC-BID PRN 04/07/24 04/07/24 History [NovoLOG MIX 70-30 Flexpen] L.acidoph,Paracasei, B.lactis 1 cap PO DAILY 04/07/24 04/07/24 History [Probiotic] Metoprolol Tartrate [Lopressor] 25 mg PO BID 04/07/24 04/07/24 History lisinopriL 40 mg PO DAILY 04/07/24 04/07/24 History Allergies Allergy/AdvReac Type Severity Reaction Status Date / Time No Known Allergies Allergy Verified 04/07/24 17:36 Surgical - Exam Vital Signs Temp Pulse Resp BP Pulse Ox 98.0 F 66 16 140/87 99 04/07/24 15:16 04/07/24 15:16 04/07/24 15:16 04/07/24 15:16 04/07/24 15:16 - General well developed, well nourished, no distress - Eyes PERRL - ENT normal pinna, normal nares - Neck no masses - Respiratory normal expansion, normal respiratory effort - Cardiovascular Rhythm: regular - Abdomen Abdomen: soft, non tender - Psychiatric oriented to time, oriented to person, oriented to place, speech is normal palpable DP and PT pulse 2nd toe on the right with distal chronic wound. Previous scarring noted with previous amputations. 2+ edema on the right lower extremity Results - Labs 04/07/24 16:03 04/07/24 16:03 Abnormal Lab Results - Last 24 Hours (Table) 04/07/24 04/07/24 Range/Units 16:03 16:03 RBC 3.29 L (4.30-5.90) m/uL Hgb 9.4 L (13.0-17.5) gm/dL Hct 28.8 L (39.0-53.0) % Chloride 114 H (98-107) mmol/L Carbon Dioxide 20 L (22-30) mmol/L BUN 24 H (9-20) mg/dL Total Protein 6.0 L (6.3-8.2) g/dL Albumin 3.4 L (3.5-5.0) g/dL Diabetes panel 04/07/24 Range/Units 16:03 Sodium 141 (137-145) mmol/L Potassium 4.7 (3.5-5.1) mmol/L Chloride 114 H (98-107) mmol/L Carbon Dioxide 20 L (22-30) mmol/L BUN 24 H (9-20) mg/dL Creatinine 0.96 (0.66-1.25) mg/dL Glucose 97 (74-99) mg/dL Calcium 9.2 (8.4-10.2) mg/dL AST 20 (17-59) U/L ALT 25 (4-49) U/L Alkaline Phosphatase 58 (38-126) U/L Total Protein 6.0 L (6.3-8.2) g/dL Albumin 3.4 L (3.5-5.0) g/dL Calcium panel 04/07/24 Range/Units 16:03 Calcium 9.2 (8.4-10.2) mg/dL Albumin 3.4 L (3.5-5.0) g/dL Pituitary panel 04/07/24 Range/Units 16:03 Sodium 141 (137-145) mmol/L Potassium 4.7 (3.5-5.1) mmol/L Chloride 114 H (98-107) mmol/L Carbon Dioxide 20 L (22-30) mmol/L BUN 24 H (9-20) mg/dL Creatinine 0.96 (0.66-1.25) mg/dL Glucose 97 (74-99) mg/dL Calcium 9.2 (8.4-10.2) mg/dL Adrenal panel 04/07/24 Range/Units 16:03 Sodium 141 (137-145) mmol/L Potassium 4.7 (3.5-5.1) mmol/L Chloride 114 H (98-107) mmol/L Carbon Dioxide 20 L (22-30) mmol/L BUN 24 H (9-20) mg/dL Creatinine 0.96 (0.66-1.25) mg/dL Glucose 97 (74-99) mg/dL Calcium 9.2 (8.4-10.2) mg/dL Total Bilirubin 0.5 (0.2-1.3) mg/dL AST 20 (17-59) U/L ALT 25 (4-49) U/L Alkaline Phosphatase 58 (38-126) U/L Total Protein 6.0 L (6.3-8.2) g/dL Albumin 3.4 L (3.5-5.0) g/dL Assessment and Plan Assessment: Right lower extremity edema Chronic 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 DM Plan: No surgical intervention required Local wound care Elevate lower extremities If swelling does not improve then would recommend CTA abdomen and pelvis with venous phase
[2024-04-07] MEDS: FAMOTIDINE 20 MG TAB PO SCH (19:33)
[2024-04-07 21:08] LABS: Glucose,Whole Blood 204 mg/dL (70-110)
[2024-04-08] MEDS: PIPERACILLIN-TAZOBACTAM 3.375 GM in SODIUM CHLORIDE 0.9% 100 ML IVPB SCH (00:27)
[2024-04-08] MEDS: MAG HYDROX/AL HYDROX/SIMETH 30 ML CUP PO PRN (05:51)
[2024-04-08 06:23] LABS: Glucose,Whole Blood 140 mg/dL (70-110)
[2024-04-08 09:18] LABS: Basophils # (A) 0.04 X 10*3/uL (0.00-0.10); Basophils % (A) 0.6 %; Eosinophils # (A) 0.27 X 10*3/uL (0.04-0.35); HCT 29.8 % (39.6-50.0); HGB 9.6 g/dL (13.0-17.0); Lymphocytes # (A) 1.72 X 10*3/uL (0.90-5.00); Lymphocytes % (A) 25.5 %; MCH 28.3 pg (27.0-32.0); MCHC 32.2 g/dL (32.0-37.0); MCV 87.9 FL (80.0-97.0); Mean Platelet Volume 10.6 FL (9.5-12.2); Monocytes # (A) 0.51 X 10*3/uL (0.20-1.00); Monocytes % (A) 7.6 %; NRBC Per 100 WBC 0 X 10*3/uL (0.00-0.01); Neutrophils # (A) 4.18 X 10*3/uL (1.80-7.70); Platelet Count 263 X 10*3/uL (140-440); RBC 3.39 X 10*6/uL (4.40-5.60); RDW 13.5 % (11.5-14.5); WBC 6.74 X 10*3/uL (4.50-10.00)
[2024-04-08 09:32] LABS: ALT 26 U/L (10-49); AST 17 U/L (14-35); Albumin 3.6 g/dL (3.8-4.9); Alkaline Phosphatase 60 U/L (41-126); BUN/Creat Ratio 17.67 Ratio (12.00-20.00); Blood Urea Nitrogen 21.2 mg/dL (9.0-27.0); Carbon Dioxide 22.2 mmol/L (21.6-31.8); Chloride 112 mmol/L (96-109); Globulin 2.4 g/dL (1.6-3.3); Glucose 166 mg/dL (70-110); Potassium 4.7 mmol/L (3.5-5.5); Sodium 144 mmol/L (135-145); Total Bilirubin 0.2 mg/dL (0.3-1.2)
[2024-04-08] MEDS: ACETAMINOPHEN TAB 325 MG TAB PO PRN (10:11)
[2024-04-08] MEDS: VANCOMYCIN 1,750 MG in SODIUM CHLORIDE 0.9% 500 ML 500 ML IVPB SCH (10:12)
[2024-04-08 12:05] LABS: Glucose,Whole Blood 230 mg/dL (70-110)
--- NOTE | 2024-04-08 15:11 | P.PN ---
Subjective Progress Note Date: 04/08/24 Patient reports mild improvement of his swelling of his right lower extremity. Ongoing infection of the right second toe. Gen: In NAD, non-toxic HEENT: normocephalic, atraumatic, hearing acuity is intant, mucous membranes moist CVS: perfusing all extremities well, no pitting edema, Respiratory: symmetric chest expansion, no accessory muscle use, GI: soft, NTTP, ND, : no suprapubic tenderness, no CVA tenderness MSK/Derm: no rashes, cyanosis Neuro: CN II-XII intact, no motor weakness, Psych: cooperative, euthymic mood, judgment and insight is intact Hospital course: 33-year-old man with a medical history of type 2 diabetes, right great toe amputation presented for evaluation of drainage from a wound on his right second toe. He was transferred from [facility] due to suspicion of o steomyelitis on chest x-ray done at outside facility. Patient was started on broad-spectrum antibiotics and had vascular surgery consultation. Patient also had infectious disease consultation. Assessment/plan: Cellulitis -Appears to be superficial infection, continue antibiotics, await ID recom mendations -Vascular surgery recommendations are appreciated Diabetes type 2 Hypertension Hyperlipidemia -Home medications reviewed and reconciled Objective - Vital Signs Vital signs: Vital Signs Temp 98.1 F 04/08/24 14:12 Pulse 79 04/08/24 14:12 Resp 15 04/08/24 14:00 BP 145/75 04/08/24 14:12 Pulse Ox 99 04/08/24 14:12 FiO2 Intake & Output 04/07/24 04/08/24 04/08/24 18:59 06:59 18:59 Intake Total 478 Balance 478 Weight 102.058 kg Intake: Oral 478 Other: Voiding Method Toilet Toilet # Voids 2 - Labs CBC & Chem 7: 04/08/24 05:14 04/08/24 05:14 Labs: Abnormal Lab Results - Last 24 Hours (Table) 04/07/24 04/07/24 04/07/24 Range/Units 16:03 16:03 21:07 RBC 3.29 L (4.30-5.90) m/uL Hgb 9.4 L (13.0-17.5) gm/dL Hct 28.8 L (39.0-53.0) % Chloride 114 H (98-107) mmol/L Carbon Dioxide 20 L (22-30) mmol/L BUN 24 H (9-20) mg/dL Glucose (70-110) mg/dL POC Glucose (mg/dL) 204 H (70-110) mg/dL Hemoglobin A1c (<=6.0) % Total Bilirubin (0.3-1.2) mg/dL Total Protein 6.0 L (6.3-8.2) g/dL Albumin 3.4 L (3.5-5.0) g/dL Albumin/Globulin Ratio (1.60-3.17) Ratio 04/08/24 04/08/24 04/08/24 Range/Units 05:14 05:14 05:14 RBC 3.39 L (4.30-5.90) m/uL Hgb 9.6 L (13.0-17.5) gm/dL Hct 29.8 L (39.0-53.0) % Chloride 112 H (98-107) mmol/L Carbon Dioxide (22-30) mmol/L BUN (9-20) mg/dL Glucose 166 H (70-110) mg/dL POC Glucose (mg/dL) (70-110) mg/dL Hemoglobin A1c 6.4 H (<=6.0) % Total Bilirubin 0.2 L (0.3-1.2) mg/dL Total Protein 6.0 L (6.3-8.2) g/dL Albumin 3.6 L (3.5-5.0) g/dL Albumin/Globulin Ratio 1.50 L (1.60-3.17) Ratio 04/08/24 04/08/24 Range/Units 06:21 12:04 RBC (4.30-5.90) m/uL Hgb (13.0-17.5) gm/dL Hct (39.0-53.0) % Chloride (98-107) mmol/L Carbon Dioxide (22-30) mmol/L BUN (9-20) mg/dL Glucose (70-110) mg/dL POC Glucose (mg/dL) 140 H 230 H (70-110) mg/dL Hemoglobin A1c (<=6.0) % Total Bilirubin (0.3-1.2) mg/dL Total Protein (6.3-8.2) g/dL Albumin (3.5-5.0) g/dL Albumin/Globulin Ratio (1.60-3.17) Ratio
[2024-04-08] MEDS: CEFEPIME 2 GM in SODIUM CHLORIDE 0.9% 100 ML IVPB SCH (16:10)
[2024-04-08 17:12] LABS: Glucose,Whole Blood 148 mg/dL (70-110)
[2024-04-08] MEDS: KETOROLAC 15 MG/ML 1 ML VIAL IVP STA (18:09)
[2024-04-08] MEDS: lisinopriL 20 MG TAB PO STA (18:10)
[2024-04-08] MEDS: METOPROLOL TARTRATE 25 MG TAB PO SCH (19:43)
[2024-04-08] MEDS: ATORVASTATIN 20 MG TAB PO SCH (19:43)
[2024-04-08] MEDS: diphenhydrAMINE 50 MG/ML 1 ML VIAL IVP PRN (19:45)
[2024-04-08 20:35] LABS: Glucose,Whole Blood 219 mg/dL (70-110)
--- NOTE | 2024-04-08 23:05 | P.CONS ---
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 and the patient was given a course of oral blood therapy for 2 weeks however the patient not sure about the name of those antibiotics patient subsequent noticed to having a increasing pain swelling to the right lower extremity for the patient was evaluated at [facility] ultrasound was done that was negative for DVT and the patient was subsequently transferred to [facility] for further evaluation on presentation to the hospital the patient was afebrile no fever have recorded subsequently patient was not tachycardic hypotensive or hypoxic patient did have a white count of 6.74 creat is 1.2 liver isms are normal patient did have a x- rays at the [facility] but no x-rays were done here the patient was started on vancomycin and Zosyn has been admitted to hospital infectious disease was consulted for further management of antibiotic therapy Review of Systems Positive point and negatives has been mentioned in the HPI, complete review of systems was performed and all other systems are negative 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 History of Any Multi-Drug Resistant Organisms: None Reported Past Surgical History: Orthopedic Surgery Additional Past Surgical History / Comment(s): Left foot 2 first toes amputation, Right foot amp of middle toe and right great toe, Left foot surgery for charcots Past Anesthesia/Blood Transfusion Reactions: Previous Problems w/ Anesthesia Additional Past Anesthesia/Blood Transfusion Reaction / Comm: Patient verb waking up during one surgery Past Psychological History: No Psychological Hx Reported Smoking Status: Never smoker Past Alcohol Use History: None Reported Past Drug Use History: None Reported - Past Family History Father Family Medical History: CVA/TIA Mother Family Medical History: Diabetes Mellitus Medications and Allergies Home Medications Medication Instructions Recorded Confirmed Type Atorvastatin [Lipitor] 20 mg PO HS 04/07/24 04/07/24 History Insulin Aspart Prot/Insuln Asp 15 units SQ AC-BID PRN 04/07/24 04/07/24 History [NovoLOG MIX 70-30 Flexpen] L.acidoph,Paracasei, B.lactis 1 cap PO DAILY 04/07/24 04/07/24 History [Probiotic] Metoprolol Tartrate [Lopressor] 25 mg PO BID 04/07/24 04/07/24 History lisinopriL 40 mg PO DAILY 04/07/24 04/07/24 History Cefepime [Maxipime] 2 gm IVPB Q8H #126 each 04/13/24 Rx Vancomycin 1,750 mg IVPB Q12HR #84 each 04/13/24 Rx metroNIDAZOLE [Flagyl] 500 mg PO TID #90 tab 04/13/24 Rx Acetaminophen Tab [Tylenol] 650 mg PO Q6HR PRN tab 04/14/24 Rx Famotidine [Pepcid] 20 mg PO BID #60 tab 04/14/24 Rx amLODIPine [Norvasc] 10 mg PO DAILY #30 tab 04/14/24 Rx Allergies Allergy/AdvReac Type Severity Reaction Status Date / Time No Known Allergies Allergy Verified 04/07/24 17:36 Physical Exam Vitals: Vital Signs Temp Pulse Pulse Resp BP BP Pulse Ox 04/08/24 07:00 97.8 F 78 150/91 99 04/08/24 02:00 97.6 F 67 15 130/87 100 04/07/24 19:18 98.2 F 85 15 123/74 98 04/07/24 17:37 68 16 134/86 98 04/07/24 16:30 69 16 144/89 99 04/07/24 15:16 98.0 F 66 16 140/87 99 Intake and Output 04/07/24 04/08/24 04/08/24 22:59 06:59 14:59 Intake Total 240 Balance 240 Intake: Oral 240 Other: Voiding Method Toilet # Voids 1 2 Weight 102.058 kg GENERAL DESCRIPTION: Middle-aged male lying in bed, no distress. No tachypnea or accessory muscle of respiration use. HEENT: Shows Pallor , no scleral icterus. Oral mucous membrane is dry. No pharyngeal erythema or thrush NECK: Trachea central, no thyromegaly. LUNGS: Unlabored breathing. Clear to auscultation anteriorly. No wheeze or crackle. HEART: S1, S2, regular rate and rhythm. No loud murmur ABDOMEN: Soft, no tenderness , guarding or rigidity, no organomegaly EXTREMITIES: Right second toe tip with a wound with a purulent drainage which has been cultured overall swelling to the right second toe SKIN: No rash, no masses palpable. NEUROLOGICAL: The patient is awake, alert, oriented x3, mood and affect normal. Results CBC & Chem 7: 04/12/24 06:15 04/13/24 14:32 Labs: Abnormal Lab Results - Last 24 Hours (Table) 04/07/24 04/07/24 04/07/24 Range/Units 16:03 16:03 21:07 RBC 3.29 L (4.30-5.90) m/uL Hgb 9.4 L (13.0-17.5) gm/dL Hct 28.8 L (39.0-53.0) % Chloride 114 H (98-107) mmol/L Carbon Dioxide 20 L (22-30) mmol/L BUN 24 H (9-20) mg/dL Glucose (70-110) mg/dL POC Glucose (mg/dL) 204 H (70-110) mg/dL Hemoglobin A1c (<=6.0) % Total Bilirubin (0.3-1.2) mg/dL Total Protein 6.0 L (6.3-8.2) g/dL Albumin 3.4 L (3.5-5.0) g/dL Albumin/Globulin Ratio (1.60-3.17) Ratio 04/08/24 04/08/24 04/08/24 Range/Units 05:14 05:14 05:14 RBC 3.39 L (4.30-5.90) m/uL Hgb 9.6 L (13.0-17.5) gm/dL Hct 29.8 L (39.0-53.0) % Chloride 112 H (98-107) mmol/L Carbon Dioxide (22-30) mmol/L BUN (9-20) mg/dL Glucose 166 H (70-110) mg/dL POC Glucose (mg/dL) (70-110) mg/dL Hemoglobin A1c 6.4 H (<=6.0) % Total Bilirubin 0.2 L (0.3-1.2) mg/dL Total Protein 6.0 L (6.3-8.2) g/dL Albumin 3.6 L (3.5-5.0) g/dL Albumin/Globulin Ratio 1.50 L (1.60-3.17) Ratio 04/08/24 Range/Units 06:21 RBC (4.30-5.90) m/uL Hgb (13.0-17.5) gm/dL Hct (39.0-53.0) % Chloride (98-107) mmol/L Carbon Dioxide (22-30) mmol/L BUN (9-20) mg/dL Glucose (70-110) mg/dL POC Glucose (mg/dL) 140 H (70-110) mg/dL Hemoglobin A1c (<=6.0) % Total Bilirubin (0.3-1.2) mg/dL Total Protein (6.3-8.2) g/dL Albumin (3.5-5.0) g/dL Albumin/Globulin Ratio (1.60-3.17) Ratio Assessment and Plan (1) Diabetic foot infection Current Visit: No Status: Acute Code(s): E11.628 - TYPE 2 DIABETES MELLITUS WITH OTHER SKIN COMPLICATIONS; L08.9 - LOCAL INFECTION OF THE SKIN AND SUBCUTANEOUS TISSUE, UNSP SNOMED Code(s): 236919123 (2) Diabetic foot ulcer Current Visit: No Status: Acute Code(s): E11.621 - TYPE 2 DIABETES MELLITUS WITH FOOT ULCER; L97.509 - NON-PRESSURE CHRONIC ULCER OTH PRT UNSP FOOT W UNSP SEVERITY SNOMED Code(s): 630091453 Plan: 1patient presented to the hospital with a right second toe tip antibiotic foot ulcer antibiotic foot infection that has been going on for more than a month and has been treated with no antibiotic in outpatient setting failing outpatient oral antibiotic therapy we will need to cover for the gram-positive as well as gram-negative pathogen as the patient had previously infection with a Pseudomonas aeruginosa 2-we will obtain inflammatory markers 3-benefit from MRI of the right foot rule out osteomyelitis involving the right second toe 4-local culture has been treated guide further by therapy 5-continue with the vancomycin however switch Zosyn to cefepime to decrease risk of nephrotoxicity 6-local wound care with Medihoney followed by moist dressing change daily We will follow on clinical condition and cultures to further adjust medication if needed Thank you for this consultation we will follow the patient along with you Dictation was produced using [employer] dictation software. please excuse any grammatical, word or spelling errors. Time with Patient: Greater than 30
[2024-04-09] MEDS: ACETAMINOPHEN IV (For NPO) 1,000 MG in EMPTY BAG 1 BAG IVPB STA (01:27)
--- NOTE | 2024-04-09 01:51 | XR ---
EXAM: XR Chest, 1 View CLINICAL HISTORY: ITS.REASON XR Reason: WHITNEY TECHNIQUE: Frontal view of the chest. COMPARISON: No relevant prior studies available. FINDINGS: Lungs: Unremarkable. No consolidation. Pleural space: Unremarkable. No pneumothorax. Heart: Unremarkable. No cardiomegaly. Mediastinum: Unremarkable. Normal mediastinal contour. Bones/joints: Unremarkable. No acute fracture. IMPRESSION: No consolidation.
[2024-04-09 05:48] LABS: Glucose,Whole Blood 163 mg/dL (70-110)
[2024-04-09] MEDS: VANCOMYCIN TROUGH DUE 1 EACH MISC MISCELLANE ONE (07:37)
[2024-04-09] MEDS: lisinopriL 20 MG TAB PO SCH (07:41)
[2024-04-09] MEDS: LACTOBACILLUS ACIDOPHILUS/PECT 1 EACH CAPSULE PO SCH (07:41)
[2024-04-09] MEDS: ONDANSETRON 4 MG/2 ML VIAL IVP PRN (07:45)
[2024-04-09] MEDS: KETOROLAC 15 MG/ML 1 ML VIAL IVP STA (08:08)
[2024-04-09] MEDS: SODIUM CHLORIDE 0.9% 1,000 ML IV SCH (08:09)
[2024-04-09 09:56] LABS: Basophils # (A) 0.03 X 10*3/uL (0.00-0.10); Basophils % (A) 0.5 %; Eosinophils # (A) 0.08 X 10*3/uL (0.04-0.35); Eosinophils % (A) 1.2 %; HCT 30.1 % (39.6-50.0); HGB 9.6 g/dL (13.0-17.0); Lymphocytes # (A) 0.68 X 10*3/uL (0.90-5.00); Lymphocytes % (A) 10.4 %; MCH 27.7 pg (27.0-32.0); MCHC 31.9 g/dL (32.0-37.0); MCV 86.7 FL (80.0-97.0); Mean Platelet Volume 10.2 FL (9.5-12.2); Monocytes # (A) 0.56 X 10*3/uL (0.20-1.00); Monocytes % (A) 8.6 %; NRBC Per 100 WBC 0 X 10*3/uL (0.00-0.01); Neutrophils # (A) 5.15 X 10*3/uL (1.80-7.70); Platelet Count 244 X 10*3/uL (140-440); RBC 3.47 X 10*6/uL (4.40-5.60); RDW 13.3 % (11.5-14.5); WBC 6.52 X 10*3/uL (4.50-10.00)
[2024-04-09 09:58] LABS: BUN/Creat Ratio 13.13 Ratio (12.00-20.00); Blood Urea Nitrogen 19.7 mg/dL (9.0-27.0); Chloride 112 mmol/L (96-109); Glucose 152 mg/dL (70-110); Potassium 4.7 mmol/L (3.5-5.5); Sodium 142 mmol/L (135-145)
[2024-04-09 09:59] LABS: ALT 25 U/L (10-49); AST 18 U/L (14-35); Albumin 3.7 g/dL (3.8-4.9); Albumin/Globulin Ratio 1.54 Ratio (1.60-3.17); Alkaline Phosphatase 61 U/L (41-126); Globulin 2.4 g/dL (1.6-3.3); Total Bilirubin 0.3 mg/dL (0.3-1.2); Total Protein 6.1 g/dL (6.2-8.2)
[2024-04-09 11:33] LABS: Erythrocyte Sedimentation Rate 20 mm/Hr (0-15)
--- NOTE | 2024-04-09 11:44 | P.PN ---
Subjective Progress Note Date: 04/09/24 Patient has been spiking fevers overnight up to 102. Currently on vancomycin/cefepime. Gen: In NAD, non-toxic HEENT: normocephalic, atraumatic, hearing acuity is intant, mucous membranes moist CVS: perfusing all extremities well, no pitting edema, Respiratory: symmetric chest expansion, no accessory muscle use, GI: soft, NTTP, ND, : no suprapubic tenderness, no CVA tenderness MSK/Derm: no rashes, cyanosis Neuro: CN II-XII intact, no motor weakness, Psych: cooperative, euthymic mood, judgment and insight is intact Hospital course: 33-year-old man with a medical history of type 2 diabetes, right great toe amputation presented for evaluation of drainage from a wound on his right second toe. He was transferred from [facility] due to suspicion of osteomyelitis on chest x-ray done at outside facility. Patient was started on broad-spectrum antibiotics and had vascular surgery consultation. Patient also had infectious disease consultation. Assessment/plan: Cellulitis -Continue antibiotics: Vancomycin (04/07-present), zosyn (04/08), cefepime (04/08- present) -Appreciate ID recommendations -Vascular surgery recommendations are appreciated -WCx is growing GPCs, GNRs -BCx NGTD Diabetes type 2 Hypertension Hyperlipidemia -Home medications reviewed and reconciled Pt is Full Code Objective - Vital Signs Vital signs: Vital Signs Temp 100.5 F H 04/09/24 09:30 Pulse 107 H 04/09/24 07:00 Resp 16 04/09/24 08:00 BP 151/76 04/09/24 07:00 Pulse Ox 96 04/09/24 07:00 FiO2 Intake & Output 04/08/24 04/09/24 04/09/24 18:59 06:59 18:59 Intake Total 478 Balance 478 Intake: Oral 478 Other: Voiding Method Toilet Toilet Toilet # Voids 2 - Labs CBC & Chem 7: 04/09/24 06:57 04/09/24 06:57 Labs: Abnormal Lab Results - Last 24 Hours (Table) 04/08/24 04/08/24 04/08/24 Range/Units 12:04 17:09 20:33 RBC (4.40-5.60) X 10*6/uL Hgb (13.0-17.0) g/dL Hct (39.6-50.0) % MCHC (32.0-37.0) g/dL Lymphocytes # (0.90-5.00) X 10*3/uL ESR (0-15) mm/Hr Chloride (96-109) mmol/L Carbon Dioxide (21.6-31.8) mmol/L Glucose (70-110) mg/dL POC Glucose (mg/dL) 230 H 148 H 219 H (70-110) mg/dL Total Protein (6.2-8.2) g/dL Albumin (3.8-4.9) g/dL Albumin/Globulin Ratio (1.60-3.17) Ratio 04/09/24 04/09/24 04/09/24 Range/Units 05:44 06:57 06:57 RBC 3.47 L (4.40-5.60) X 10*6/uL Hgb 9.6 L (13.0-17.0) g/dL Hct 30.1 L (39.6-50.0) % MCHC 31.9 L (32.0-37.0) g/dL Lymphocytes # 0.68 L (0.90-5.00) X 10*3/uL ESR 20 H (0-15) mm/Hr Chloride 112 H (96-109) mmol/L Carbon Dioxide 21.0 L (21.6-31.8) mmol/L Glucose 152 H (70-110) mg/dL POC Glucose (mg/dL) 163 H (70-110) mg/dL Total Protein 6.1 L (6.2-8.2) g/dL Albumin 3.7 L (3.8-4.9) g/dL Albumin/Globulin Ratio 1.54 L (1.60-3.17) Ratio Microbiology - Last 24 Hours (Table) 04/08/24 12:15 Gram Stain - Preliminary Foot - Right 04/07/24 16:05 Blood Culture - Preliminary Blood 04/07/24 16:03 Blood Culture - Preliminary Blood
[2024-04-09 12:24] LABS: Glucose,Whole Blood 214 mg/dL (70-110)
--- NOTE | 2024-04-09 13:29 | P.PN ---
Subjective Progress Note Date: 04/09/24 Principal diagnosis: Reason for follow-up is right second toe diabetic foot infection Patient is a 33-year-old male with a past medical history significant for diabetes mellitus previous history of diabetic foot infection requiring amputation of the right big toe patient now presented to hospital with right second toe diabetic foot ulcer concern for underlying Osteomyelitis. On today's evaluation that is 04/09/2024, patient did spike a fever of 102.7 F this morning, the patient has been afebrile this afternoon, patient is breathing comfortably and is currently on room air, patient denies having any significant cough no chest pain shortness of breath, patient denies nausea vomiting or diarrhea and no abdominal pain. Patient white count is 6.5 to creat is 1.5 Vanco trough is 19.8 blood and local cultures currently pending chest x-ray no consolidation Objective - Vital Signs Vital signs: Vital Signs Temp 100.5 F H 04/09/24 09:30 Pulse 107 H 04/09/24 07:00 Resp 16 04/09/24 08:00 BP 151/76 04/09/24 07:00 Pulse Ox 96 04/09/24 07:00 FiO2 Intake & Output 04/08/24 04/09/24 04/09/24 18:59 06:59 18:59 Intake Total 478 Balance 478 Intake: Oral 478 Other: Voiding Method Toilet Toilet Toilet # Voids 2 - Exam GENERAL DESCRIPTION: Middle-age male lying in bed in no distress RESPIRATORY SYSTEM: Unlabored breathing , decreased breath sounds at bases HEART: S1 S2 regular rate and rhythm , ABDOMEN: Soft , no tenderness EXTREMITIES: Right second toe currently dressed - Labs CBC & Chem 7: 04/09/24 06:57 04/09/24 06:57 Labs: Abnormal Lab Results - Last 24 Hours (Table) 04/08/24 04/08/24 04/08/24 Range/Units 12:04 17:09 20:33 RBC (4.40-5.60) X 10*6/uL Hgb (13.0-17.0) g/dL Hct (39.6-50.0) % MCHC (32.0-37.0) g/dL Lymphocytes # (0.90-5.00) X 10*3/uL ESR (0-15) mm/Hr Chloride (96-109) mmol/L Carbon Dioxide (21.6-31.8) mmol/L Glucose (70-110) mg/dL POC Glucose (mg/dL) 230 H 148 H 219 H (70-110) mg/dL Total Protein (6.2-8.2) g/dL Albumin (3.8-4.9) g/dL Albumin/Globulin Ratio (1.60-3.17) Ratio 04/09/24 04/09/24 04/09/24 Range/Units 05:44 06:57 06:57 RBC 3.47 L (4.40-5.60) X 10*6/uL Hgb 9.6 L (13.0-17.0) g/dL Hct 30.1 L (39.6-50.0) % MCHC 31.9 L (32.0-37.0) g/dL Lymphocytes # 0.68 L (0.90-5.00) X 10*3/uL ESR 20 H (0-15) mm/Hr Chloride 112 H (96-109) mmol/L Carbon Dioxide 21.0 L (21.6-31.8) mmol/L Glucose 152 H (70-110) mg/dL POC Glucose (mg/dL) 163 H (70-110) mg/dL Total Protein 6.1 L (6.2-8.2) g/dL Albumin 3.7 L (3.8-4.9) g/dL Albumin/Globulin Ratio 1.54 L (1.60-3.17) Ratio Microbiology - Last 24 Hours (Table) 04/08/24 12:15 Gram Stain - Preliminary Foot - Right 04/07/24 16:05 Blood Culture - Preliminary Blood 04/07/24 16:03 Blood Culture - Preliminary Blood Assessment and Plan (1) Diabetic foot infection Current Visit: No Status: Acute Code(s): E11.628 - TYPE 2 DIABETES MELLITUS WITH OTHER SKIN COMPLICATIONS; L08.9 - LOCAL INFECTION OF THE SKIN AND SUBCUTANEOUS TISSUE, UNSP SNOMED Code(s): 004801269 (2) Diabetic foot ulcer Current Visit: No Status: Acute Code(s): E11.621 - TYPE 2 DIABETES MELLITUS WITH FOOT ULCER; L97.509 - NON-PRESSURE CHRONIC ULCER OTH PRT UNSP FOOT W UNSP SEVERITY SNOMED Code(s): 006165378 Plan: 1patient presented to the hospital with a right second toe tip antibiotic foot ulcer antibiotic foot infection that has been going on for more than a month and has been treated with no antibiotic in outpatient setting failing outpatient oral antibiotic therapy we will need to cover for the gram-positive as well as gram-negative pathogen as the patient had previously infection with a Pseudomonas aeruginosa 2-patient will-benefit from MRI of the right foot rule out osteomyelitis involving the right second toe 3local culture has been obtained currently showing gram-negative as well as gram-positive on the Gram stain cultures are pending 4patient to continue with the vancomycin and cefepime while waiting for the culture to finalize local care with the Medihoney followed by moist dressing Dictation was produced using [employer] dictation software. please excuse any grammatical, word or spelling errors. Time with Patient: Greater than 30
[2024-04-09 17:31] LABS: Glucose,Whole Blood 209 mg/dL (70-110)
[2024-04-09] MEDS: VANCOMYCIN 1,750 MG in SODIUM CHLORIDE 0.9% 500 ML 500 ML IVPB SCH (20:15)
[2024-04-09 20:37] LABS: Glucose,Whole Blood 217 mg/dL (70-110)
[2024-04-10 06:28] LABS: Glucose,Whole Blood 166 mg/dL (70-110)
[2024-04-10] MEDS: VANCOMYCIN TROUGH DUE 1 EACH MISC MISCELLANE ONE (08:17)
[2024-04-10] MEDS: amLODIPine 10 MG TAB PO SCH (08:57)
[2024-04-10 10:51] LABS: Basophils # (A) 0.02 X 10*3/uL (0.00-0.10); Basophils % (A) 0.4 %; Eosinophils # (A) 0.02 X 10*3/uL (0.04-0.35); Eosinophils % (A) 0.4 %; HCT 26.9 % (39.6-50.0); HGB 8.6 g/dL (13.0-17.0); Lymphocytes % (A) 28.6 %; MCH 28.3 pg (27.0-32.0); MCV 88.5 FL (80.0-97.0); Mean Platelet Volume 10.3 FL (9.5-12.2); Monocytes # (A) 0.74 X 10*3/uL (0.20-1.00); Monocytes % (A) 15.1 %; NRBC Per 100 WBC 0 X 10*3/uL (0.00-0.01); Neutrophils # (A) 2.71 X 10*3/uL (1.80-7.70); Neutrophils % (A) 55.3 %; Platelet Count 201 X 10*3/uL (140-440); RBC 3.04 X 10*6/uL (4.40-5.60); RDW 13.2 % (11.5-14.5)
--- NOTE | 2024-04-10 11:23 | P.PN ---
Subjective Progress Note Date: 04/10/24 Principal diagnosis: Right foot diabetic ulcer Patient is seen and examined today as a follow-up. Yesterday he had a max temp in the morning of 102.7. He has been afebrile today. Swelling has gone down in both lower extremities. He remains on IV antibiotics. Sounds like plan is for PICC line placement for outpatient antibiotics. Patient states possible MRI being ordered by infectious disease. Objective - Vital Signs Vital signs: Vital Signs Temp 98.5 F 04/10/24 07:00 Pulse 70 04/10/24 07:00 Resp 16 04/10/24 07:00 BP 176/106 04/10/24 07:00 Pulse Ox 95 04/10/24 07:00 FiO2 Intake & Output 04/09/24 04/10/24 04/10/24 18:59 06:59 18:59 Intake Total 120 Balance 120 Intake: Oral 120 Other: Voiding Method Toilet Toilet # Voids 2 - Exam General appearance: The patient is alert, oriented, appears in no acute distress. HET: Head is normocephalic and atraumatic. Neck: Supple. Heart: Regular. Lungs: Equal expansion, normal respiratory effort. Abdomen: Soft,nondistended. Extremities: Bilateral lower extremities with palpable DP pulses. Right foot with dressing clean dry and intact. Previous scarring with previous amputations. Nonpitting lower extremity edema. Neurological: Alert and oriented. - Labs CBC & Chem 7: 04/10/24 07:22 04/09/24 06:57 Labs: Abnormal Lab Results - Last 24 Hours (Table) 04/09/24 04/09/24 04/09/24 Range/Units 06:57 06:57 12:21 RBC 3.47 L (4.40-5.60) X 10*6/uL Hgb 9.6 L (13.0-17.0) g/dL Hct 30.1 L (39.6-50.0) % MCHC 31.9 L (32.0-37.0) g/dL Lymphocytes # 0.68 L (0.90-5.00) X 10*3/uL ESR 20 H (0-15) mm/Hr Chloride 112 H (96-109) mmol/L Carbon Dioxide 21.0 L (21.6-31.8) mmol/L Glucose 152 H (70-110) mg/dL POC Glucose (mg/dL) 214 H (70-110) mg/dL Total Protein 6.1 L (6.2-8.2) g/dL Albumin 3.7 L (3.8-4.9) g/dL Albumin/Globulin Ratio 1.54 L (1.60-3.17) Ratio 04/09/24 04/09/24 04/10/24 Range/Units 17:29 20:35 06:25 RBC (4.40-5.60) X 10*6/uL Hgb (13.0-17.0) g/dL Hct (39.6-50.0) % MCHC (32.0-37.0) g/dL Lymphocytes # (0.90-5.00) X 10*3/uL ESR (0-15) mm/Hr Chloride (96-109) mmol/L Carbon Dioxide (21.6-31.8) mmol/L Glucose (70-110) mg/dL POC Glucose (mg/dL) 209 H 217 H 166 H (70-110) mg/dL Total Protein (6.2-8.2) g/dL Albumin (3.8-4.9) g/dL Albumin/Globulin Ratio (1.60-3.17) Ratio Microbiology - Last 24 Hours (Table) 04/07/24 16:05 Blood Culture - Preliminary Blood 04/07/24 16:03 Blood Culture - Preliminary Blood 04/08/24 12:15 Gram Stain - Preliminary Foot - Right Assessment and Plan Assessment: 1. Right lower extremity edema 2. 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 History of foot wounds and multiple surgeries. 4. DM Plan: 1. No recommendations for surgical intervention at this time 2. Continue local wound care 3. Continue to elevate lower extremities 4. Continue with recommendations from infectious disease Thank you for this consultation, we will be on standby as needed. The impression and plan of care has been dictated as directed. Dr. Fields I performed a history and examination of this patient, discussed the same with the dictator. I agree with the dictator's note ,documented as a scribe. Any additional findings or plans will be noted.
[2024-04-10 11:31] LABS: ALT 23 U/L (10-49); AST 20 U/L (14-35); Albumin 3.5 g/dL (3.8-4.9); Albumin/Globulin Ratio 1.52 Ratio (1.60-3.17); Alkaline Phosphatase 54 U/L (41-126); BUN/Creat Ratio 11.77 Ratio (12.00-20.00); Blood Urea Nitrogen 15.3 mg/dL (9.0-27.0); Carbon Dioxide 20.8 mmol/L (21.6-31.8); Chloride 112 mmol/L (96-109); Globulin 2.3 g/dL (1.6-3.3); Glucose 141 mg/dL (70-110); Potassium 4.4 mmol/L (3.5-5.5); Sodium 142 mmol/L (135-145); Total Bilirubin <0.2 mg/dL (0.3-1.2); Total Protein 5.8 g/dL (6.2-8.2)
[2024-04-10 12:01] LABS: Glucose,Whole Blood 179 mg/dL (70-110)
--- NOTE | 2024-04-10 13:01 | XR ---
EXAMINATION TYPE: XR chest 1V portable DATE OF EXAM: 04/10/2024 COMPARISON: 04/09/2024 INDICATION: Cough TECHNIQUE: Single frontal view of the chest is obtained. FINDINGS: The heart size is normal. The pulmonary vasculature is normal. The lungs are clear. IMPRESSION: 1. No acute pulmonary process.
--- NOTE | 2024-04-10 13:44 | P.PN ---
Subjective Progress Note Date: 04/10/24 Afebrile overnight. Currently on vancomycin/cefepime. Gen: In NAD, non-toxic HEENT: normocephalic, atraumatic, hearing acuity is intant, mucous membranes moist CVS: perfusing all extremities well, no pitting edema, Respiratory: symmetric chest expansion, no accessory muscle use, GI: soft, NTTP, ND, : no suprapubic tenderness, no CVA tenderness MSK/Derm: no rashes, cyanosis Neuro: CN II-XII intact, no motor weakness, Psych: cooperative, euthymic mood, judgment and insight is intact Hospital course: 33-year-old man with a medical history of type 2 diabetes, right great toe amputation presented for evaluation of drainage from a wound on his right second toe. He was transferred from [facility] due to suspicion of osteomyelitis on chest x-ray done at outside facility. Patient was started on broad-spectrum antibiotics and had vascular surgery consultation. Patient also had infectious disease consultation. Assessment/plan: Cellulitis vs Osteomyelitis -Continue antibiotics: Vancomycin (04/07-present), zosyn (04/08), cefepime (04/08- present) -Appreciate ID recommendations -Vascular surgery recommendations are appreciated -WCx is growing GPCs, GNRs -BCx NGTD -MRI of RLE -CXR to r/o pneumonia Diabetes type 2 Hypertension Hyperlipidemia -Home medications reviewed and reconciled Pt is Full Code Objective - Vital Signs Vital signs: Vital Signs Temp 98.5 F 04/10/24 07:00 Pulse 71 04/10/24 09:55 Resp 16 04/10/24 08:18 BP 144/87 04/10/24 09:55 Pulse Ox 95 04/10/24 07:00 FiO2 Intake & Output 04/09/24 04/10/24 04/10/24 18:59 06:59 18:59 Intake Total 120 118 Balance 120 118 Intake: Oral 120 118 Other: Voiding Method Toilet Toilet Toilet # Voids 2 - Labs CBC & Chem 7: 04/10/24 07:22 04/10/24 07:22 Labs: Abnormal Lab Results - Last 24 Hours (Table) 04/09/24 04/09/24 04/10/24 Range/Units 17:29 20:35 06:25 RBC (4.40-5.60) X 10*6/uL Hgb (13.0-17.0) g/dL Hct (39.6-50.0) % Eosinophils # (0.04-0.35) X 10*3/uL Chloride (96-109) mmol/L Carbon Dioxide (21.6-31.8) mmol/L BUN/Creatinine Ratio (12.00-20.00) Ratio Glucose (70-110) mg/dL POC Glucose (mg/dL) 209 H 217 H 166 H (70-110) mg/dL Total Bilirubin (0.3-1.2) mg/dL Total Protein (6.2-8.2) g/dL Albumin (3.8-4.9) g/dL Albumin/Globulin Ratio (1.60-3.17) Ratio 04/10/24 04/10/24 04/10/24 Range/Units 07:22 07:22 12:00 RBC 3.04 L (4.40-5.60) X 10*6/uL Hgb 8.6 L (13.0-17.0) g/dL Hct 26.9 L (39.6-50.0) % Eosinophils # 0.02 L (0.04-0.35) X 10*3/uL Chloride 112 H (96-109) mmol/L Carbon Dioxide 20.8 L (21.6-31.8) mmol/L BUN/Creatinine Ratio 11.77 L (12.00-20.00) Ratio Glucose 141 H (70-110) mg/dL POC Glucose (mg/dL) 179 H (70-110) mg/dL Total Bilirubin <0.2 L (0.3-1.2) mg/dL Total Protein 5.8 L (6.2-8.2) g/dL Albumin 3.5 L (3.8-4.9) g/dL Albumin/Globulin Ratio 1.52 L (1.60-3.17) Ratio Microbiology - Last 24 Hours (Table) 04/07/24 16:05 Blood Culture - Preliminary Blood 04/07/24 16:03 Blood Culture - Preliminary Blood
[2024-04-10 17:07] LABS: Glucose,Whole Blood 195 mg/dL (70-110)
--- NOTE | 2024-04-10 17:07 | P.PN ---
Subjective Progress Note Date: 04/10/24 Principal diagnosis: Reason for follow-up is right second toe diabetic foot infection Patient is a 33-year-old male with a past medical history significant for diabetes mellitus previous history of diabetic foot infection requiring amputation of the right big toe patient now presented to hospital with right second toe diabetic foot ulcer concern for underlying Osteomyelitis. On today's evaluation that is 04/10/2024, Patient did have resolution of his fever and is afebrile this morning and denies any chills, patient mention breathing comfortably and is currently on room air, patient denies any chest pain occasional cough patient denies any abdominal pain no diarrhea no nausea no vomiting denies any pain to the right second toe. Patient white count is 4.90, creatinine is 1.3 cultures currently growing Pseudomonas and Staphylococcus agalactiae Objective - Vital Signs Vital signs: Vital Signs Temp 98.5 F 04/10/24 07:00 Pulse 71 04/10/24 09:55 Resp 16 04/10/24 07:00 BP 144/87 04/10/24 09:55 Pulse Ox 95 04/10/24 07:00 FiO2 Intake & Output 04/09/24 04/10/24 04/10/24 18:59 06:59 18:59 Intake Total 120 118 Balance 120 118 Intake: Oral 120 118 Other: Voiding Method Toilet Toilet # Voids 2 - Exam GENERAL DESCRIPTION: Middle-age male lying in bed in no distress RESPIRATORY SYSTEM: Unlabored breathing , decreased breath sounds at bases HEART: S1 S2 regular rate and rhythm , ABDOMEN: Soft , no tenderness EXTREMITIES: Right second toe currently dressed - Labs CBC & Chem 7: 04/10/24 07:22 04/10/24 07:22 Labs: Abnormal Lab Results - Last 24 Hours (Table) 04/09/24 04/09/24 04/09/24 Range/Units 06:57 12:21 17:29 ESR 20 H (0-15) mm/Hr POC Glucose (mg/dL) 214 H 209 H (70-110) mg/dL 04/09/24 04/10/24 Range/Units 20:35 06:25 ESR (0-15) mm/Hr POC Glucose (mg/dL) 217 H 166 H (70-110) mg/dL Microbiology - Last 24 Hours (Table) 04/07/24 16:05 Blood Culture - Preliminary Blood 04/07/24 16:03 Blood Culture - Preliminary Blood 04/08/24 12:15 Gram Stain - Preliminary Foot - Right Assessment and Plan (1) Diabetic foot infection Current Visit: No Status: Acute Code(s): E11.628 - TYPE 2 DIABETES MELLITUS WITH OTHER SKIN COMPLICATIONS; L08.9 - LOCAL INFECTION OF THE SKIN AND SUBCUTANEOUS TISSUE, UNSP SNOMED Code(s): 036823475 (2) Diabetic foot ulcer Current Visit: No Status: Acute Code(s): E11.621 - TYPE 2 DIABETES MELLITUS WITH FOOT ULCER; L97.509 - NON-PRESSURE CHRONIC ULCER OTH PRT UNSP FOOT W UNSP SEVERITY SNOMED Code(s): 306821215 Plan: 1patient presented to the hospital with a right second toe tip antibiotic foot ulcer antibiotic foot infection that has been going on for more than a month and has been treated with no antibiotic in outpatient setting failing outpatient oral antibiotic therapy we will need to cover for the gram-positive as well as gram-negative pathogen as the patient had previously infection with a Pseudomonas aeruginosa 2-patient will-benefit from MRI of the right foot rule out osteomyelitis inv olving the right second toe 3local culture has been obtained currently showing Pseudomonas aeruginosa and Staphylococcus agalactiae 4patient to continue with cefepime however will discontinue vancomycin as no MRSA we will obtain MRI of the right foot with attention to the right second toe to rule out osteomyelitis and need for IV antibiotic therapy on discharge Dictation was produced using [employer] dictation software. please excuse any grammatical, word or spelling errors. Time with Patient: Less than 30
[2024-04-10 20:22] LABS: Glucose,Whole Blood 204 mg/dL (70-110)
[2024-04-11 06:03] LABS: Glucose,Whole Blood 158 mg/dL (70-110)
[2024-04-11] MEDS: BENZOCAINE/MENTHOL LOZENG 1 EACH LOZENGE MUCOUS MEM PRN (06:11)
[2024-04-11 10:35] LABS: Basophils # (A) 0.02 X 10*3/uL (0.00-0.10); Basophils % (A) 0.4 %; Eosinophils # (A) 0.18 X 10*3/uL (0.04-0.35); Eosinophils % (A) 3.4 %; HCT 26.9 % (39.6-50.0); HGB 8.5 g/dL (13.0-17.0); Lymphocytes # (A) 1.42 X 10*3/uL (0.90-5.00); Lymphocytes % (A) 27.1 %; MCH 27.5 pg (27.0-32.0); MCHC 31.6 g/dL (32.0-37.0); MCV 87.1 FL (80.0-97.0); Mean Platelet Volume 9.9 FL (9.5-12.2); Monocytes # (A) 0.58 X 10*3/uL (0.20-1.00); Monocytes % (A) 11.1 %; NRBC Per 100 WBC 0 X 10*3/uL (0.00-0.01); Neutrophils # (A) 3.03 X 10*3/uL (1.80-7.70); Neutrophils % (A) 57.8 %; Platelet Count 199 X 10*3/uL (140-440); RBC 3.09 X 10*6/uL (4.40-5.60); RDW 13.2 % (11.5-14.5); WBC 5.24 X 10*3/uL (4.50-10.00)
[2024-04-11 11:45] LABS: Glucose,Whole Blood 170 mg/dL (70-110)
[2024-04-11 11:49] LABS: BUN/Creat Ratio 14.08 Ratio (12.00-20.00); Blood Urea Nitrogen 16.9 mg/dL (9.0-27.0); Calcium 8.5 mg/dL (8.7-10.3); Chloride 110 mmol/L (96-109); Glucose 152 mg/dL (70-110); Magnesium 1.9 mg/dL (1.5-2.4); Potassium 4.3 mmol/L (3.5-5.5); Sodium 141 mmol/L (135-145)
[2024-04-11] MEDS ORDERED: VANCOMYCIN IV PER PHARMACY 1 EACH MISC MISCELLANE PRN (13:12)
--- NOTE | 2024-04-11 13:12 | P.PN ---
Subjective Progress Note Date: 04/11/24 Principal diagnosis: Reason for follow-up is right second toe diabetic foot infection Patient is a 33-year-old male with a past medical history significant for diabetes mellitus previous history of diabetic foot infection requiring amputation of the right big toe patient now presented to hospital with right second toe diabetic foot ulcer concern for underlying Osteomyelitis. On today's evaluation that is 04/11/2024,the patient denies any fever or any chills, patient is breathing comfortably on room air, the patient denies chest pain shortness of breath and no significant cough, patient denies abdominal pain, did have some nausea improved with the Zofran no vomiting no diarrhea denies pain to the right second toe. Patient white count is 5.2, creat is 1.2, Wound culture growing Pseudomonas strep and also presumptive MRSA MRI pending Objective - Vital Signs Vital signs: Vital Signs Temp 98.4 F 04/11/24 07:00 Pulse 66 04/11/24 07:00 Resp 17 04/11/24 07:00 BP 159/89 04/11/24 07:00 Pulse Ox 96 04/11/24 07:00 FiO2 Intake & Output 04/10/24 04/11/24 04/11/24 18:59 06:59 18:59 Intake Total 238 Balance 238 Intake: Oral 238 Other: Voiding Method Toilet Toilet # Voids 2 - Exam GENERAL DESCRIPTION: Middle-age male lying in bed in no distress RESPIRATORY SYSTEM: Unlabored breathing , decreased breath sounds at bases HEART: S1 S2 regular rate and rhythm , ABDOMEN: Soft , no tenderness EXTREMITIES: Right second toe currently dressed - Labs CBC & Chem 7: 04/11/24 06:54 04/11/24 06:54 Labs: Abnormal Lab Results - Last 24 Hours (Table) 04/10/24 04/10/24 04/10/24 Range/Units 07:22 07:22 12:00 RBC 3.04 L (4.40-5.60) X 10*6/uL Hgb 8.6 L (13.0-17.0) g/dL Hct 26.9 L (39.6-50.0) % Eosinophils # 0.02 L (0.04-0.35) X 10*3/uL Chloride 112 H (96-109) mmol/L Carbon Dioxide 20.8 L (21.6-31.8) mmol/L BUN/Creatinine Ratio 11.77 L (12.00-20.00) Ratio Glucose 141 H (70-110) mg/dL POC Glucose (mg/dL) 179 H (70-110) mg/dL Total Bilirubin <0.2 L (0.3-1.2) mg/dL Total Protein 5.8 L (6.2-8.2) g/dL Albumin 3.5 L (3.8-4.9) g/dL Albumin/Globulin Ratio 1.52 L (1.60-3.17) Ratio 04/10/24 04/10/24 04/11/24 Range/Units 17:06 20:21 06:02 RBC (4.40-5.60) X 10*6/uL Hgb (13.0-17.0) g/dL Hct (39.6-50.0) % Eosinophils # (0.04-0.35) X 10*3/uL Chloride (96-109) mmol/L Carbon Dioxide (21.6-31.8) mmol/L BUN/Creatinine Ratio (12.00-20.00) Ratio Glucose (70-110) mg/dL POC Glucose (mg/dL) 195 H 204 H 158 H (70-110) mg/dL Total Bilirubin (0.3-1.2) mg/dL Total Protein (6.2-8.2) g/dL Albumin (3.8-4.9) g/dL Albumin/Globulin Ratio (1.60-3.17) Ratio Microbiology - Last 24 Hours (Table) 04/07/24 16:05 Blood Culture - Preliminary Blood 04/07/24 16:03 Blood Culture - Preliminary Blood 04/09/24 08:04 Blood Culture - Preliminary Blood 04/09/24 07:50 Blood Culture - Preliminary Blood 04/08/24 12:15 Gram Stain - Preliminary Foot - Right Wound Culture - Preliminary Pseudomonas aeruginosa Strep agalactiae - (group b) Assessment and Plan (1) Diabetic foot infection Current Visit: No Status: Acute Code(s): E11.628 - TYPE 2 DIABETES MELLITUS WITH OTHER SKIN COMPLICATIONS; L08.9 - LOCAL INFECTION OF THE SKIN AND SUBCUTANEOUS TISSUE, UNSP SNOMED Code(s): 103579035 (2) Diabetic foot ulcer Current Visit: No Status: Acute Code(s): E11.621 - TYPE 2 DIABETES MELLITUS WITH FOOT ULCER; L97.509 - NON-PRESSURE CHRONIC ULCER OTH PRT UNSP FOOT W UNSP SEVERITY SNOMED Code(s): 955266329 Plan: 1patient presented to the hospital with a right second toe tip antibiotic foot ulcer antibiotic foot infection that has been going on for more than a month and has been treated with no antibiotic in outpatient setting failing outpatient oral antibiotic therapy we will need to cover for the gram-positive as well as gram-negative pathogen as the patient had previously infection with a Pseudomona s aeruginosa 2-patient will-benefit from MRI of the right foot rule out osteomyelitis involving the right second toe 3local culture has been obtained currently Pseudomonas aeruginosa and Staphylococcus agalactiae also growing presumptive MRSA 4patient to continue with cefepime we will restart the vancomycin as the culture now also growing MRSA await the MRI Dictation was produced using [employer] dictation software. please excuse any grammatical, word or spelling errors. Time with Patient: Less than 30
[2024-04-11] MEDS: VANCOMYCIN 1,750 MG in SODIUM CHLORIDE 0.9% 500 ML 500 ML IVPB SCH (17:02)
--- NOTE | 2024-04-11 17:11 | P.PN ---
Subjective Progress Note Date: 04/11/24 Afebrile overnight. Currently on vancomycin/cefepime. Gen: In NAD, non-toxic HEENT: normocephalic, atraumatic, hearing acuity is intant, mucous membranes moist CVS: perfusing all extremities well, no pitting edema, Respiratory: symmetric chest expansion, no accessory muscle use, GI: soft, NTTP, ND, : no suprapubic tenderness, no CVA tenderness MSK/Derm: no rashes, cyanosis Neuro: CN II-XII intact, no motor weakness, Psych: cooperative, euthymic mood, judgment and insight is intact Hospital course: 33-year-old man with a medical history of type 2 diabetes, right great toe amputation presented for evaluation of drainage from a wound on his right second toe. He was transferred from [facility] due to suspicion of osteomyelitis on chest x-ray done at outside facility. Patient was started on broad-spectrum antibiotics and had vascular surgery consultation. Patient also had infectious disease consultation. Assessment/plan: Cellulitis vs Osteomyelitis -Continue antibiotics: Vancomycin (04/07-present), zosyn (04/08), cefepime (04/08- present) -Appreciate ID recommendations -Vascular surgery recommendations are appreciated -WCx is growing strep group B, pseudomonas -BCx NGTD -MRI of RLE is still pending -CXR to r/o pneumonia was negative Diabetes type 2 Hypertension Hyperlipidemia -Home medications reviewed and reconciled Pt is Full Code Objective - Vital Signs Vital signs: Vital Signs Temp 97.9 F 04/11/24 14:33 Pulse 70 04/11/24 14:33 Resp 17 04/11/24 14:33 BP 132/83 04/11/24 14:33 Pulse Ox 97 04/11/24 14:33 FiO2 Intake & Output 04/10/24 04/11/24 04/11/24 18:59 06:59 18:59 Intake Total 238 Balance 238 Intake: Oral 238 Other: Voiding Method Toilet Toilet # Voids 2 2 - Labs CBC & Chem 7: 04/11/24 06:54 04/11/24 06:54 Labs: Abnormal Lab Results - Last 24 Hours (Table) 04/10/24 04/11/24 04/11/24 Range/Units 20:21 06:02 06:54 RBC 3.09 L (4.40-5.60) X 10*6/uL Hgb 8.5 L (13.0-17.0) g/dL Hct 26.9 L (39.6-50.0) % MCHC 31.6 L (32.0-37.0) g/dL Chloride (96-109) mmol/L Glucose (70-110) mg/dL POC Glucose (mg/dL) 204 H 158 H (70-110) mg/dL Calcium (8.7-10.3) mg/dL 04/11/24 04/11/24 Range/Units 06:54 11:44 RBC (4.40-5.60) X 10*6/uL Hgb (13.0-17.0) g/dL Hct (39.6-50.0) % MCHC (32.0-37.0) g/dL Chloride 110 H (96-109) mmol/L Glucose 152 H (70-110) mg/dL POC Glucose (mg/dL) 170 H (70-110) mg/dL Calcium 8.5 L (8.7-10.3) mg/dL Microbiology - Last 24 Hours (Table) 04/09/24 08:04 Blood Culture - Preliminary Blood 04/09/24 07:50 Blood Culture - Preliminary Blood 04/08/24 12:15 Anaerobic Culture - Preliminary Foot - Right 04/08/24 12:15 Gram Stain - Preliminary Foot - Right Wound Culture - Preliminary Pseudomonas aeruginosa Strep agalactiae - (group b) Presumptive MRSA 04/07/24 16:05 Blood Culture - Preliminary Blood 04/07/24 16:03 Blood Culture - Preliminary Blood
[2024-04-11 17:27] LABS: Glucose,Whole Blood 260 mg/dL (70-110)
[2024-04-11 20:38] LABS: Glucose,Whole Blood 214 mg/dL (70-110)
[2024-04-11] MEDS: BENZONATATE 100 MG CAP PO PRN (21:14)
[2024-04-12 06:25] LABS: Glucose,Whole Blood 125 mg/dL (70-110)
--- NOTE | 2024-04-12 08:31 | P.PN ---
Subjective Progress Note Date: 04/12/24 Afebrile overnight. He is seen sitting up in bed eating his breakfast, has no complaints at this time, tolerating it fine without any nausea or vomiting. The patient still has not received his MRI due to scheduling issues, the plan is to proceed with this to rule out osteomyelitis. Gen: In NAD, non-toxic HEENT: normocephalic, atraumatic, hearing acuity is intant, mucous membranes moist CVS: perfusing all extremities well, no pitting edema, Respiratory: symmetric chest expansion, no accessory muscle use, GI: soft, NTTP, ND, : no suprapubic tenderness, no CVA tenderness MSK/Derm: no rashes, cyanosis Neuro: CN II-XII intact, no motor weakness, Psych: cooperative, euthymic mood, judgment and insight is intact Hospital course: 33-year-old man with a medical history of type 2 diabetes, right great toe amputation presented for evaluation of drainage from a wound on his right second toe. He was transferred from [facility] due to suspicion of osteomyelitis on chest x-ray done at outside facility. Patient was started on broad-spectrum antibiotics and had vascular surgery consultation. Patient also had infectious disease consultation. Assessment/plan: Cellulitis vs Osteomyelitis -Continue antibiotics: Vancomycin (04/07-present), zosyn (04/08), cefepime (04/08- present) -Appreciate ID recommendations -Vascular surgery recommendations are appreciated -WCx is growing strep group B, pseudomonas -BCx NGTD -MRI of RLE is still pending -CXR to r/o pneumonia was negative Diabetes type 2 Hypertension Hyperlipidemia -Home medications reviewed and reconciled Pt is Full Code Objective - Vital Signs Vital signs: Vital Signs Temp 98.5 F 04/12/24 07:00 Pulse 67 04/12/24 07:00 Resp 17 04/12/24 07:00 BP 147/85 04/12/24 07:00 Pulse Ox 97 04/12/24 07:00 FiO2 Intake & Output 04/11/24 04/12/24 04/12/24 18:59 06:59 18:59 Other: Voiding Method Toilet # Voids 2 1 - Labs CBC & Chem 7: 04/11/24 06:54 04/11/24 06:54 Labs: Abnormal Lab Results - Last 24 Hours (Table) 04/11/24 04/11/24 04/11/24 Range/Units 06:54 06:54 11:44 RBC 3.09 L (4.40-5.60) X 10*6/uL Hgb 8.5 L (13.0-17.0) g/dL Hct 26.9 L (39.6-50.0) % MCHC 31.6 L (32.0-37.0) g/dL Chloride 110 H (96-109) mmol/L Glucose 152 H (70-110) mg/dL POC Glucose (mg/dL) 170 H (70-110) mg/dL Calcium 8.5 L (8.7-10.3) mg/dL 04/11/24 04/11/24 04/12/24 Range/Units 17:26 20:36 06:24 RBC (4.40-5.60) X 10*6/uL Hgb (13.0-17.0) g/dL Hct (39.6-50.0) % MCHC (32.0-37.0) g/dL Chloride (96-109) mmol/L Glucose (70-110) mg/dL POC Glucose (mg/dL) 260 H 214 H 125 H (70-110) mg/dL Calcium (8.7-10.3) mg/dL Microbiology - Last 24 Hours (Table) 04/09/24 08:04 Blood Culture - Preliminary Blood 04/09/24 07:50 Blood Culture - Preliminary Blood 04/08/24 12:15 Anaerobic Culture - Preliminary Foot - Right 04/08/24 12:15 Gram Stain - Preliminary Foot - Right Wound Culture - Preliminary Pseudomonas aeruginosa Strep agalactiae - (group b) Presumptive MRSA 04/07/24 16:05 Blood Culture - Preliminary Blood 04/07/24 16:03 Blood Culture - Preliminary Blood
[2024-04-12 12:02] LABS: Glucose,Whole Blood 212 mg/dL (70-110)
[2024-04-12 12:12] LABS: Basophils # (A) 0.02 X 10*3/uL (0.00-0.10); Basophils % (A) 0.4 %; Eosinophils # (A) 0.29 X 10*3/uL (0.04-0.35); Eosinophils % (A) 5.5 %; HGB 8.7 g/dL (13.0-17.0); Lymphocytes # (A) 1.78 X 10*3/uL (0.90-5.00); Lymphocytes % (A) 33.8 %; MCH 28.1 pg (27.0-32.0); MCHC 32.2 g/dL (32.0-37.0); MCV 87.1 FL (80.0-97.0); Mean Platelet Volume 9.8 FL (9.5-12.2); Monocytes # (A) 0.43 X 10*3/uL (0.20-1.00); Monocytes % (A) 8.2 %; NRBC Per 100 WBC 0 X 10*3/uL (0.00-0.01); Neutrophils # (A) 2.72 X 10*3/uL (1.80-7.70); Neutrophils % (A) 51.7 %; Platelet Count 213 X 10*3/uL (140-440); RDW 13.3 % (11.5-14.5); WBC 5.26 X 10*3/uL (4.50-10.00)
--- NOTE | 2024-04-12 12:23 | P.PN ---
Subjective Progress Note Date: 04/12/24 Principal diagnosis: Reason for follow-up is right second toe diabetic foot infection Patient is a 33-year-old male with a past medical history significant for diabetes mellitus previous history of diabetic foot infection requiring amputation of the right big toe patient now presented to hospital with right second toe diabetic foot ulcer concern for underlying Osteomyelitis. On today's evaluation that is 04/12/2024,the patient remains to be afebrile, patient is on room air not requiring supplemental oxygen and denies any shortness of breath no chest pain or cough.Patient denies having any nausea or vomiting, no abdominal pain and no diarrhea has been reported and denies pain to the right second toe wound. Patient white count is 5.26 blood culture negative MRI is pending Objective - Vital Signs Vital signs: Vital Signs Temp 98.5 F 04/12/24 07:00 Pulse 67 04/12/24 08:00 Resp 17 04/12/24 08:00 BP 147/85 04/12/24 07:00 Pulse Ox 97 04/12/24 07:00 FiO2 Intake & Output 04/11/24 04/12/24 04/12/24 18:59 06:59 18:59 Intake Total 118 Balance 118 Intake: Oral 118 Other: Voiding Method Toilet Toilet # Voids 2 1 - Exam GENERAL DESCRIPTION: Middle-age male lying in bed in no distress RESPIRATORY SYSTEM: Unlabored breathing , decreased breath sounds at bases HEART: S1 S2 regular rate and rhythm , ABDOMEN: Soft , no tenderness EXTREMITIES: Right second toe currently dressed - Labs CBC & Chem 7: 04/12/24 06:15 04/11/24 06:54 Labs: Abnormal Lab Results - Last 24 Hours (Table) 04/11/24 04/11/24 04/11/24 Range/Units 06:54 06:54 11:44 RBC 3.09 L (4.40-5.60) X 10*6/uL Hgb 8.5 L (13.0-17.0) g/dL Hct 26.9 L (39.6-50.0) % MCHC 31.6 L (32.0-37.0) g/dL Chloride 110 H (96-109) mmol/L Glucose 152 H (70-110) mg/dL POC Glucose (mg/dL) 170 H (70-110) mg/dL Calcium 8.5 L (8.7-10.3) mg/dL 04/11/24 04/11/24 04/12/24 Range/Units 17:26 20:36 06:24 RBC (4.40-5.60) X 10*6/uL Hgb (13.0-17.0) g/dL Hct (39.6-50.0) % MCHC (32.0-37.0) g/dL Chloride (96-109) mmol/L Glucose (70-110) mg/dL POC Glucose (mg/dL) 260 H 214 H 125 H (70-110) mg/dL Calcium (8.7-10.3) mg/dL Microbiology - Last 24 Hours (Table) 04/09/24 08:04 Blood Culture - Preliminary Blood 04/09/24 07:50 Blood Culture - Preliminary Blood 04/08/24 12:15 Anaerobic Culture - Preliminary Foot - Right 04/08/24 12:15 Gram Stain - Preliminary Foot - Right Wound Culture - Preliminary Pseudomonas aeruginosa Strep agalactiae - (group b) Presumptive MRSA 04/07/24 16:05 Blood Culture - Preliminary Blood 04/07/24 16:03 Blood Culture - Preliminary Blood Assessment and Plan (1) Diabetic foot infection Current Visit: No Status: Acute Code(s): E11.628 - TYPE 2 DIABETES MELLITUS WITH OTHER SKIN COMPLICATIONS; L08.9 - LOCAL INFECTION OF THE SKIN AND SUBCUT ANEOUS TISSUE, UNSP SNOMED Code(s): 889103554 (2) Diabetic foot ulcer Current Visit: No Status: Acute Code(s): E11.621 - TYPE 2 DIABETES MELLITUS WITH FOOT ULCER; L97.509 - NON-PRESSURE CHRONIC ULCER OTH PRT UNSP FOOT W UNSP SEVERITY SNOMED Code(s): 387215140 Plan: 1patient presented to the hospital with a right second toe tip antibiotic foot ulcer antibiotic foot infection that has been going on for more than a month and has been treated with no antibiotic in outpatient setting failing outpatient oral antibiotic therapy we will need to cover for the gram-positive as well as gram-negative pathogen as the patient had previously infection with a Pseudomonas aeruginosa 2-patient currently waiting for MRI of the right foot rule out osteomyelitis involving the right second toe 3local culture has been obtained currently Pseudomonas aeruginosa and Staphylococcus agalactiae also growing presumptive MRSA 4patient to continue with cefepime, vancomycin while waiting for the workup to be completed will need a PICC line and outpatient IV antibiotics discussed with the patient Dictation was produced using [employer] dictation software. please excuse any grammatical, word or spelling errors. Time with Patient: Less than 30
[2024-04-12 12:29] LABS: BUN/Creat Ratio 15.67 Ratio (12.00-20.00); Blood Urea Nitrogen 18.8 mg/dL (9.0-27.0); Chloride 110 mmol/L (96-109); Glucose 120 mg/dL (70-110); Magnesium 1.9 mg/dL (1.5-2.4); Potassium 4.5 mmol/L (3.5-5.5); Sodium 142 mmol/L (135-145)
[2024-04-12 12:30] LABS: Calcium 8.8 mg/dL (8.7-10.3); Carbon Dioxide 21.3 mmol/L (21.6-31.8)
[2024-04-12 12:49] VITALS: BMI 30.5
--- NOTE | 2024-04-12 16:26 | MR ---
EXAMINATION TYPE: MR foot RT wo/w con DATE OF EXAM: 04/12/2024 4:02 PM CLINICAL INDICATION:Male, 33 years old with history of right 2nd diabetic foot ulcer/osteomyelitis; P HH, Right 2nd diabetic foot ulcer/osteomyelitis. COMPARISON: MRI 07/17/2023, 07/15/2023 TECHNIQUE: Multiplanar, multisequence MR imaging of the right foot forefoot was performed administra tion of IV gadolinium contrast. MR contrast: IV Contrast: 10 cc Gadavist FINDINGS: Abnormal bone marrow signal compatible with osteomyelitis: * Fifth digit proximal phalanx base, * surgical amputation of the fifth metatarsal base shaft with abnormal signal in suspected bony frag ment of the prior fracture metatarsal head. * Fourth digit distal phalanx * Second digit distal phalanx with loss of cortex borders, * Second digit metatarsal head and probably proximal phalanx with abnormal bone marrow signal. Septi c joint at the second metatarsophalangeal joint Amputation of the first and third digits at the metatarsophalangeal joint. Diffuse subcutaneous edema throughout the foot. No organizing fluid collection. There is 1's near thee metatarsal head of the t hird digit plantar surface series 901 image 3 the fifth digit lateral aspect series 901 image 9. Ther e is also thought to be soft tissue lines with the tips of the second and fourth digits. There are no bony edema suggestive of fracture identified. IMPRESSION: Evidence of osteomyelitis involving the multiple digits throughout the foot as described above. No or ganizing fluid collection to suggest abscess. Diffuse subcutaneous edema compatible with cellulitis. Findings are progressed from prior MRI..
[2024-04-12 17:22] LABS: Glucose,Whole Blood 208 mg/dL (70-110)
[2024-04-12 19:53] LABS: Glucose,Whole Blood 153 mg/dL (70-110)
[2024-04-13 05:10] LABS: Glucose,Whole Blood 192 mg/dL (70-110)
--- NOTE | 2024-04-13 08:26 | P.PN ---
Subjective Progress Note Date: 04/13/24 Subjective: Patient seen at bedside. No significant overnight events. Pertinent positives and negatives discussed above, a complete review of systems was preformed and all the other sytems were negative. Vitals Signs Reveiwed. Gen: In NAD, non-toxic HEENT: normocephalic, atraumatic, hearing acuity is intant, mucous membranes moist CVS: perfusing all extremities well, no pitting edema, Respiratory: symmetric chest expansion, no accessory muscle use, GI: soft, NTTP, ND, : no suprapubic tenderness, no CVA tenderness MSK/Derm: no rashes, cyanosis Neuro: CN II-XII intact, no motor weakness, Psych: cooperative, euthymic mood, judgment and insight is intact Data Reveiwed Today: Patient Labs: Creatinine 1.02, GFR greater than 90, glucose 203. Imaging: Right foot MRI: Evidence of osteomyelitis involving multiple digits throughout the right foot. Assesment and Plan: Osteomyelitis: -MRI of RLE shows evidence of osteomyelitis involving multiple digits throughout the right foot. -Continue antibiotics: Vancomycin (04/07-present), zosyn (04/08), cefepime (04/08- present). Will send patient home with IV vancomycin and cefepime via PICC line. -Per ID need to cover for gram-positive and gram-negative agents. If cultures grow anaerobes also add Flagyl. PICC line ordered, to be performed by Receptionist Nurse -Vascular surgery does not believe he is a surgical candidate at this time -WCx is growing strep group B, pseudomonas -BCx no growth after 72 hours -CXR to r/o pneumonia was negative Chronic: Diabetes type 2: Insulin sliding scale. Hypoglycemic precautions. Hypertension: Lisinopril 40 mg p.o. once a day, amlodipine 10 mg p.o. once a day Dyslipidemia Lipitor 20 mg p.o. -Home medications reviewed and reconciled F normal saline 1000 mL IV 75 mL with E none N heart healthy diet A normally walks unassisted Code Status: Full code Anticipated discharge place: To home Anticipated discharge time: Today or tomorrow pending home care I have seen and evaluated the patient today. Discussed with the resident and agree with the residents subjective and objective as documented in the resident's note. The assessment and plan was discussed and outlined as below. Patient reports no complaints. MRI confirming suspicion for osteomyelitis. Patient will need 6-8 weeks of Vancomycin, Cefepime and Flagyl per ID. PICC line order placed. Potential discharge if able to set up antibiotics at home. Osteomyelitis: WCx pesudomonas aeruginosa, strep agalactiae, MRSA. MRI confirmed OM. ID on board. Continue Vancomycin dosed per pharmacy (monitor trough and renal function for toxicity), Cefepime 2g IV TID, PO Flagyl. Diabetes mellitus: ISS. Accuchecks ACHS. Hypoglycemic precautions. Hypertension: Lisinopril 40 mg PO QD. Amlodipine 10 mg PO QD. Dyslipidemia: Lipitor 20 mg PO QHS. Objective - Vital Signs Vital signs: Vital Signs Temp 97.8 F 04/13/24 07:00 Pulse 75 04/13/24 07:00 Resp 18 04/13/24 07:00 BP 134/81 04/13/24 07:00 Pulse Ox 96 04/13/24 07:00 FiO2 Intake & Output 04/12/24 04/13/24 04/13/24 18:59 06:59 18:59 Intake Total 236 Balance 236 Weight 102.058 kg Intake: Oral 236 Other: Voiding Method Toilet Toilet # Voids 3 2 - Labs CBC & Chem 7: 04/12/24 06:15 04/13/24 14:32 Labs: Abnormal Lab Results - Last 24 Hours (Table) 04/12/24 04/12/24 04/12/24 Range/Units 06:15 06:15 12:01 RBC 3.10 L (4.40-5.60) X 10*6/uL Hgb 8.7 L (13.0-17.0) g/dL Hct 27.0 L (39.6-50.0) % Chloride 110 H (96-109) mmol/L Carbon Dioxide 21.3 L (21.6-31.8) mmol/L Glucose 120 H (70-110) mg/dL POC Glucose (mg/dL) 212 H (70-110) mg/dL 04/12/24 04/12/24 04/13/24 Range/Units 17:20 19:49 05:09 RBC (4.40-5.60) X 10*6/uL Hgb (13.0-17.0) g/dL Hct (39.6-50.0) % Chloride (96-109) mmol/L Carbon Dioxide (21.6-31.8) mmol/L Glucose (70-110) mg/dL POC Glucose (mg/dL) 208 H 153 H 192 H (70-110) mg/dL Microbiology - Last 24 Hours (Table) 04/07/24 16:05 Blood Culture - Final Blood 04/07/24 16:03 Blood Culture - Final Blood 04/09/24 08:04 Blood Culture - Preliminary Blood 04/09/24 07:50 Blood Culture - Preliminary Blood 04/08/24 12:15 Gram Stain - Final Foot - Right Wound Culture - Final Pseudomonas aeruginosa Strep agalactiae - (group b) Methicillin resist S. aureus
--- NOTE | 2024-04-13 11:47 | P.PN ---
Subjective Progress Note Date: 04/13/24 Principal diagnosis: Right foot diabetic ulcer Patient is seen and examined today as a follow-up. He did have his MRI of the right foot completed with reported evidence of osteomyelitis involving the multiple digits throughout the foot as described above. No organizing fluid c ollection to suggest abscess. Diffuse subcutaneous edema compatible with cellulitis. Findings are progressed from prior MRI. He remains on IV antibiotics. Final wound culture positive for Pseudomonas aeruginosa, strep B, and MRSA. He has been afebrile. Objective - Vital Signs Vital signs: Vital Signs Temp 97.8 F 04/13/24 07:00 Pulse 75 04/13/24 07:00 Resp 18 04/13/24 07:00 BP 134/81 04/13/24 07:00 Pulse Ox 96 04/13/24 07:00 FiO2 Intake & Output 04/12/24 04/13/24 04/13/24 18:59 06:59 18:59 Intake Total 236 Balance 236 Weight 102.058 kg Intake: Oral 236 Other: Voiding Method Toilet Toilet Toilet # Voids 3 2 - Exam General appearance: The patient is alert, oriented, appears in no acute distress. HET: Head is normocephalic and atraumatic. Neck: Supple. Heart: Regular. Lungs: Equal expansion, normal respiratory effort. Abdomen: Soft,nondistended. Extremities: Bilateral lower extremities with palpable DP pulses. Right foot with dressing clean dry and intact. Previous scarring with previous amputations. Nonpitting lower extremity edema. Neurological: Alert and oriented. - Labs CBC & Chem 7: 04/12/24 06:15 04/12/24 06:15 Labs: Abnormal Lab Results - Last 24 Hours (Table) 04/12/24 04/12/24 04/12/24 Range/Units 06:15 06:15 12:01 RBC 3.10 L (4.40-5.60) X 10*6/uL Hgb 8.7 L (13.0-17.0) g/dL Hct 27.0 L (39.6-50.0) % Chloride 110 H (96-109) mmol/L Carbon Dioxide 21.3 L (21.6-31.8) mmol/L Glucose 120 H (70-110) mg/dL POC Glucose (mg/dL) 212 H (70-110) mg/dL 04/12/24 04/12/24 04/13/24 Range/Units 17:20 19:49 05:09 RBC (4.40-5.60) X 10*6/uL Hgb (13.0-17.0) g/dL Hct (39.6-50.0) % Chloride (96-109) mmol/L Carbon Dioxide (21.6-31.8) mmol/L Glucose (70-110) mg/dL POC Glucose (mg/dL) 208 H 153 H 192 H (70-110) mg/dL Microbiology - Last 24 Hours (Table) 04/07/24 16:05 Blood Culture - Final Blood 04/07/24 16:03 Blood Culture - Final Blood 04/09/24 08:04 Blood Culture - Preliminary Blood 04/09/24 07:50 Blood Culture - Preliminary Blood 04/08/24 12:15 Gram Stain - Final Foot - Right Wound Culture - Final Pseudomonas aeruginosa Strep agalactiae - (group b) Methicillin resist S. aureus Assessment and Plan Assessment: 1. Right lower extremity edema 2. Chronic right 2nd toe wound with osteomyelitis 3. History of foot wounds and multiple surgeries. 4. DM Plan: 1. No recommendations for surgical intervention at this time 2. Continue local wound care 3. Continue to elevate lower extremities 4. Continue with recommendations from infectious disease 5. If patient will need any surgical intervention patient would like to follow with his elementary principal. He is receiving a copy of the MRI of the foot to bring to his elementary principal. Thank you for this consultation, we will sign off at this time. The impression and plan of care has been dictated as directed. Dr. Rodriguez I performed a history and examination of this patient, discussed the same with the dictator. I agree with the dictator's note ,documented as a scribe. Any additional findings or plans will be noted.
[2024-04-13 12:28] LABS: Glucose,Whole Blood 203 mg/dL (70-110)
--- NOTE | 2024-04-13 13:31 | P.PN ---
Subjective Progress Note Date: 04/13/24 Principal diagnosis: Reason for follow-up is right second toe diabetic foot infection Patient is a 33-year-old male with a past medical history significant for diabetes mellitus previous history of diabetic foot infection requiring amputation of the right big toe patient now presented to hospital with right second toe diabetic foot ulcer concern for underlying Osteomyelitis. On today's evaluation that is 04/13/2024, the patient continues to be afebrile, the patient is on room air and breathing comfortably, the Pt denies having any chest pain or cough, the patient denies having any abdominal pain no vomiting or any diarrhea and denies any pain to the right second toe. No new lab has been repeated today blood culture has been negative MRI of the foot suggestive of osteomyelitis involving repeat negative multiple digits throughout the foot but mostly for the second toe Objective - Vital Signs Vital signs: Vital Signs Temp 97.8 F 04/13/24 07:00 Pulse 75 04/13/24 07:00 Resp 18 04/13/24 07:00 BP 134/81 04/13/24 07:00 Pulse Ox 96 04/13/24 07:00 FiO2 Intake & Output 04/12/24 04/13/24 04/13/24 18:59 06:59 18:59 Intake Total 236 Balance 236 Weight 102.058 kg Intake: Oral 236 Other: Voiding Method Toilet Toilet Toilet # Voids 3 2 - Exam GENERAL DESCRIPTION: Middle-age male lying in bed in no distress RESPIRATORY SYSTEM: Unlabored breathing , decreased breath sounds at bases HEART: S1 S2 regular rate and rhythm , ABDOMEN: Soft , no tenderness EXTREMITIES: Right second toe currently dressed - Labs CBC & Chem 7: 04/12/24 06:15 04/12/24 06:15 Labs: Abnormal Lab Results - Last 24 Hours (Table) 04/12/24 04/12/24 04/12/24 Range/Units 06:15 06:15 12:01 RBC 3.10 L (4.40-5.60) X 10*6/uL Hgb 8.7 L (13.0-17.0) g/dL Hct 27.0 L (39.6-50.0) % Chloride 110 H (96-109) mmol/L Carbon Dioxide 21.3 L (21.6-31.8) mmol/L Glucose 120 H (70-110) mg/dL POC Glucose (mg/dL) 212 H (70-110) mg/dL 04/12/24 04/12/24 04/13/24 Range/Units 17:20 19:49 05:09 RBC (4.40-5.60) X 10*6/uL Hgb (13.0-17.0) g/dL Hct (39.6-50.0) % Chloride (96-109) mmol/L Carbon Dioxide (21.6-31.8) mmol/L Glucose (70-110) mg/dL POC Glucose (mg/dL) 208 H 153 H 192 H (70-110) mg/dL Microbiology - Last 24 Hours (Table) 04/07/24 16:05 Blood Culture - Final Blood 04/07/24 16:03 Blood Culture - Final Blood 04/09/24 08:04 Blood Culture - Preliminary Blood 04/09/24 07:50 Blood Culture - Preliminary Blood 04/08/24 12:15 Gram Stain - Final Foot - Right Wound Culture - Final Pseudomonas aeruginosa Strep agalactiae - (group b) Methicillin resist S. aureus Assessment and Plan (1) Diabetic foot infection Current Visit: No Status: Acute Code(s): E11.628 - TYPE 2 DIABETES MELLITUS WITH OTHER SKIN COMPLICATIONS; L08.9 - LOCAL INFECTION OF THE SKIN AND SUBCU TANEOUS TISSUE, UNSP SNOMED Code(s): 367599559 (2) Diabetic foot ulcer Current Visit: No Status: Acute Code(s): E11.621 - TYPE 2 DIABETES MELLITUS WITH FOOT ULCER; L97.509 - NON-PRESSURE CHRONIC ULCER OTH PRT UNSP FOOT W UNSP SEVERITY SNOMED Code(s): 329545048 Plan: 1patient presented to the hospital with a right second toe tip antibiotic foot ulcer antibiotic foot infection that has been going on for more than a month and has been treated with no antibiotic in outpatient setting failing outpatient oral antibiotic therapy we will need to cover for the gram-positive as well as gram-negative pathogen as the patient had previously infection with a Pseudomonas aeruginosa 2-patient MRI did shows evidence of osteomyelitis involving the second toe in addition to the metatarsal head of the first and fifth toe 3local culture has been obtained currently Pseudomonas aeruginosa and Staphylococcus agalactiae and MRSA 4patient currently waiting for PICC line placement, plan is to to continue with cefepime, vancomycin along with oral Flagyl x 6 weeks and close outpatient follow-up multiple questions were answerede please excuse any grammatical, word or spelling errors. Time with Patient: Less than 30
[2024-04-13 15:09] LABS: African American GFR (CKD) >90 (>60 ml/min/1.73 sqM); Non-African American GFR(CKD) >90 (>60 ml/min/1.73 sqM)
[2024-04-13] MEDS: VANCOMYCIN TROUGH DUE 1 EACH MISC MISCELLANE ONE (17:11)
[2024-04-13 17:15] LABS: Glucose,Whole Blood 147 mg/dL (70-110)
[2024-04-13 20:58] LABS: Glucose,Whole Blood 157 mg/dL (70-110)
[2024-04-14] MEDS: VANCOMYCIN 1,750 MG in SODIUM CHLORIDE 0.9% 500 ML 500 ML IVPB SCH (05:38)
[2024-04-14 06:04] LABS: Glucose,Whole Blood 176 mg/dL (70-110)
--- NOTE | 2024-04-14 11:06 | P.DS ---
Providers Date of admission: 04/11/24 07:48 Discharge Diagnosis: Osteomyelitis of the right foot Diabetes type 2 Hypertension Hyperlipidemia Hospital Course: 33-year-old man with a medical history of type 2 diabetes, right great toe amputation presented for evaluation of drainage from a wound on his right second toe. He was transferred from [facility] due to suspicion of osteomyelitis on chest x-ray done at outside facility. Patient denied chest pain, shortness of breath, hematuria, dysuria, hematemesis, hematochezia, or pain in his right foot. In the ED vitals were stable. In the ED significant labs included sodium 141, potassium 4.7, chloride 114, bicarb 20, BUN 24, creatinine 0.96, glucose 204, WBC 5.8, hemoglobin 9.4, and MCV 87.5. EKG in the ED showed normal sinus rhythm without any axis deviation. Patient was admitted for workup of wound of the right foot suspicious of cellulitis versus osteomyelitis. While in the hospital patient received CXR which showed no acute pulmonary process. Patient also received MRI of the right foot which showed evidence of osteomyelitis involving multiple digits throughout the right foot. Patient received IV vancomycin and cefepime while in the hospital. Patient underwent procedure for PICC line in order to continue to receive IV antibiotics outpatient. Status post PICC line placement patient was stable for discharge with continued IV antibiotics prescribed for outpatient. Patient will be discharged home. Patient advised to follow-up with PCP and consistently follow through with daily IV antibiotic treatments for confirmed osteomyelitis of the right foot. Pt seen and examined at bedside: Patient is feeling well this morning, awaiting case management for clearance of insurance for home care. Vital signs reveiwed and stable: Gen: In NAD, non-toxic HEENT: normocephalic, atraumatic, hearing acuity is intant, mucous membranes moist CVS: perfusing all extremities well, no pitting edema, Respiratory: symmetric chest expansion, no accessory muscle use, GI: soft, NTTP, ND, : no suprapubic tenderness, no CVA tenderness MSK/Derm: no rashes, cyanosis Neuro: CN II-XII intact, no motor weakness, Psych: cooperative, euthymic mood, judgment and insight is intact A total of [] minutes were spent preparing this complex discarge summary. Patient was discharged on []. Attending physician: Angel Brown MD Consults: 04/07/24 17:09 Consult Physician Routine Consulting Provider: Jazlyn Pinzon Consult Reason/Comments: diabetic foot infection Do you want consulting provider notified?: Yes Primary care physician: Natalie Aranda MD Hospital Course: I have seen and evaluated the patient today. Discussed with the resident and agree with the residents subjective and objective as documented in the resident's note. The assessment and plan was discussed and outlined as below. Patient reports no complaints. PICC line obtained yesterday. Discussed with case management, home health obtained and antibiotics set up. Plans for discharge home today. Follow up with PCP within 1-[address] Pinzon within 1 week of discharge. Osteomyelitis: WCx pesudomonas aeruginosa, strep agalactiae, MRSA. MRI confirmed OM. ID on board. Continue Vancomycin dosed per pharmacy (monitor trough and renal function for toxicity), Cefepime 2g IV TID, PO Flagyl. Diabetes mellitus: ISS. Accuchecks ACHS. Hypoglycemic precautions. Hypertension: Lisinopril 40 mg PO QD. Amlodipine 10 mg PO QD. Dyslipidemia: Lipitor 20 mg PO QHS. Patient Condition at Discharge: Stable Plan - Discharge Summary New Discharge Prescriptions: New metroNIDAZOLE [Flagyl] 500 mg PO TID #90 tab amLODIPine [Norvasc] 10 mg PO DAILY #30 tab Famotidine [Pepcid] 20 mg PO BID #60 tab Acetaminophen Tab [Tylenol] 650 mg PO Q6HR PRN tab PRN Reason: Mild Pain Or Fever > 100.5 Cefepime [Maxipime] 2 gm IVPB Q8H #126 each Vancomycin 1,750 mg IVPB Q12HR #84 each Continue Metoprolol Tartrate [Lopressor] 25 mg PO BID Insulin Aspart Prot/Insuln Asp [NovoLOG MIX 70-30 Flexpen] 15 units SQ AC-BID PRN PRN Reason: high blood sugar lisinopriL 40 mg PO DAILY Atorvastatin [Lipitor] 20 mg PO HS L.acidoph,Paracasei, B.lactis [Probiotic] 1 cap PO DAILY Discontinued Apixaban [Eliquis] See Taper PO DIRECTED Discharge Medication List Atorvastatin [Lipitor] 20 mg PO HS 04/07/24 [History] Insulin Aspart Prot/Insuln Asp [NovoLOG MIX 70-30 Flexpen] 15 units SQ AC-BID PRN 04/07/24 [History] L.acidoph,Paracasei, B.lactis [Probiotic] 1 cap PO DAILY 04/07/24 [History] Metoprolol Tartrate [Lopressor] 25 mg PO BID 04/07/24 [History] lisinopriL 40 mg PO DAILY 04/07/24 [History] Cefepime [Maxipime] 2 gm IVPB Q8H #126 each 04/13/24 [Rx] Vancomycin 1,750 mg IVPB Q12HR #84 each 04/13/24 [Rx] metroNIDAZOLE [Flagyl] 500 mg PO TID #90 tab 04/13/24 [Rx] Acetaminophen Tab [Tylenol] 650 mg PO Q6HR PRN tab 04/14/24 [Rx] Famotidine [Pepcid] 20 mg PO BID #60 tab 04/14/24 [Rx] amLODIPine [Norvasc] 10 mg PO DAILY #30 tab 04/14/24 [Rx] Follow up Appointment(s)/Referral(s): [facility], [NON-STAFF] - 04/15/24 8:00 am [facility], [REFERRING] - 04/14/24 6:00 pm (DELIVERY BETWEEN 6PM - 8PM) Natalie Aranda MD [Primary Care Provider] - 1-2 days Jazlyn Pinzon MD [STAFF PHYSICIAN] - 1 Week Ambulatory/Diagnostic Orders: Basic Metabolic Panel [LAB.AMB] Location: None Selected C Reactive Protein [LAB.AMB] Location: None Selected Complete Blood Count w/diff [LAB.AMB] Location: None Selected Erythrocyte Sedimentation Rate [LAB.AMB] Location: None Selected Activity/Diet/Wound Care/Special Instructions: Diet: Diabetic Discharge Disposition: HOME SELF-CARE
[2024-04-14 12:05] LABS: Glucose,Whole Blood 183 mg/dL (70-110)
--- NOTE | 2024-04-14 16:13 | P.PN ---
Subjective Progress Note Date: 04/14/24 Principal diagnosis: Reason for follow-up is right second toe diabetic foot infection Patient is a 33-year-old male with a past medical history significant for diabetes mellitus previous history of diabetic foot infection requiring amputation of the right big toe patient now presented to hospital with right second toe diabetic foot ulcer concern for underlying Osteomyelitis. On today's evaluation that is 04/14/2024, Patient is afebrile patient is currently on room air and denies having any shortness of breath, the patient denies any chest pain or cough, the patient denies any nausea vomiting did not have any abdominal pain and no diarrhea denies pain to the right foot or any worsening drainage. No new lab has been obtained today Objective - Vital Signs Vital signs: Vital Signs Temp 97.9 F 04/14/24 07:00 Pulse 70 04/14/24 07:00 Resp 12 04/14/24 07:00 BP 148/85 04/14/24 07:00 Pulse Ox 98 04/14/24 01:28 FiO2 Intake & Output 04/13/24 04/14/24 04/14/24 18:59 06:59 18:59 Intake Total 362 240 Balance 362 240 Intake: Oral 362 240 Other: Voiding Method Toilet Toilet Toilet # Voids 2 3 # Bowel Movements 1 - Exam GENERAL DESCRIPTION: Middle-age male lying in bed in no distress RESPIRATORY SYSTEM: Unlabored breathing , decreased breath sounds at bases HEART: S1 S2 regular rate and rhythm , ABDOMEN: Soft , no tenderness EXTREMITIES: Right second toe currently dressed - Labs CBC & Chem 7: 04/12/24 06:15 04/13/24 14:32 Labs: Abnormal Lab Results - Last 24 Hours (Table) 04/13/24 04/13/24 04/13/24 Range/Units 12:26 17:13 20:53 POC Glucose (mg/dL) 203 H 147 H 157 H (70-110) mg/dL 04/14/24 Range/Units 06:02 POC Glucose (mg/dL) 176 H (70-110) mg/dL Microbiology - Last 24 Hours (Table) 04/09/24 08:04 Blood Culture - Preliminary Blood 04/09/24 07:50 Blood Culture - Preliminary Blood 04/08/24 12:15 Anaerobic Culture - Final Foot - Right Assessment and Plan (1) Diabetic foot infection Current Visit: No Status: Acute Code(s): E11.628 - TYPE 2 DIABETES MELLITUS WITH OTHER SKIN COMPLICATIONS; L08.9 - LOCAL INFECTION OF THE SKIN AND SUBCUTANEOUS TISSUE, UNSP SNOMED Code(s): 441403588 (2) Diabetic foot ulcer Current Visit: No Status: Acute Code(s): E11.621 - TYPE 2 DIABETES MELLITUS WITH FOOT ULCER; L97.509 - NON-PRESSURE CHRONIC ULCER OTH PRT UNSP FOOT W UNSP SEVERITY SNOMED Code(s): 349703799 Plan: 1patient presented to the hospital with a right second toe tip antibiotic foot ulcer antibiotic foot infection that has been going on for more than a month and has been treated with no antibiotic in outpatient setting failing outpatient oral antibiotic therapy we will need to cover for the gram-positive as well as gram-negative pathogen as the patient had previously infection with a Pseudomonas aeruginosa 2-patient MRI did shows evidence of osteomyelitis involving the second toe in addition to the metatarsal head of the first and fifth toe 3local culture has been obtained currently Pseudomonas aeruginosa and Streptococcus and MRSA 4patient has got a PICC line plan is for cefepime, vancomycin along with oral Flagyl x 6 weeks and close outpatient follow-up with weekly monitoring of CRP and sed rate please excuse any grammatical, word or spelling errors. Time with Patient: Less than 30
[2024-04-14 17:10] LABS: Glucose,Whole Blood 178 mg/dL (70-110)
[2024-04-14 19:34] VITALS: BP 115/73; PULSE 73; RESP 18; TEMP 98.6
[2024-04-14 21:09] LABS: Glucose,Whole Blood 215 mg/dL (70-110)
[2024-04-15] MEDS ORDERED: VANCOMYCIN TROUGH DUE 1 EACH MISC MISCELLANE ONE (16:00)
--- NOTE | 2024-04-18 13:55 | CDI ---
Documentation Clarification Form Date: 04/18/2024 01:43:48 PM From: Anny Blandon RN, CCDS Phone: [phone] Admit Date: 04/11/2024 07:48:00 AM Patient Name: Jake Gaines Visit Number: [id number] Discharge Date: 04/14/2024 09:35:00 PM ATTENTION: The Clinical Documentation Specialists (CDI) and [facility] Coding Staff appreciate your assistance in clarifying documentation. Please respond to the clarification below the line at the bottom and electronically sign. The CDI & [facility] Coding staff will review the response and follow-up if needed. Please note: Queries are made part of the Legal Health Record. If you have any questions, please contact the author of this message via ITS. Dr. Rodrick Red The patient had elevated renal labs. Based on this information and the findings below, is there an additional diagnosis that is clinically appropriate for this patient? Patient history/risk factors: DM, right great toe amputation and neuropathy. Presented from [facility] for evaluation for right foot infection. Admitted with osteomyelitis and treated with IV Vancomycin. Clinical Indicators: 04/13 IM: "Continue Vancomycin dosed per pharmacy (monitor trough and renal function for toxicity)." Discharge summary: "Osteomyelitis of the right foot." 04/07-04/12 BUN: 24-21.2-15.3-18.8 04/07-04/13 Cr: 0.96-1.2-1.5-1.02 04/07 GFR >90 Treatment: 0.9 NS @75mL/hr 04/07-04/14; monitor daily labs Is there an additional diagnosis that is clinically appropriate for this patient? [x] Acute Kidney Injury [ ] No additional diagnosis/Not clinically significant [ ] Unable to determine [ ] Other, please specify Reference: KDIGO MANNY Criteria An increase in serum creatinine by greater than or equal to 0.3 mg/dL within 48 hours; An increase in serum creatinine by greater than or equal to 1.5 times baseline, which is known or presumed to have occurred within the prior 7 days; A urine volume less than 0.5 ml/kg/h for 6 hours. When the baseline is unknown the lowest creatinine during admission assumed to be baseline MTDD
== END 2024-04-14 21:35 | disposition home health service (06) | DRG 344 ==
LOC: EC 15:08 → 6NMEDSUR 16:44 → OBSVTOIN 04-11 07:48
PROVIDERS: ADMIT Student in an Organized Health Care Education/Training Program; ATTEND Student in an Organized Health Care Education/Training Program
PROC: 02HV33Z Insertion of Infusion Device into Superior Vena Cava, Percutaneous Approach (ICD-10-PCS; principal; 2024-04-14)
DX: E11.69 Type 2 diabetes mellitus with other specified complication (principal); M86.8X7 Other osteomyelitis, ankle and foot; E11.621 Type 2 diabetes mellitus with foot ulcer; E11.628 Type 2 diabetes mellitus with other skin complications; E11.40 Type 2 diabetes mellitus with diabetic neuropathy, unspecified; E11.65 Type 2 diabetes mellitus with hyperglycemia; N17.9 Acute kidney failure, unspecified; L97.516 Non-pressure chronic ulcer of other part of right foot with bone involvement without evidence of necrosis; Z79.4 Long term (current) use of insulin; Z89.412 Acquired absence of left great toe; Z89.411 Acquired absence of right great toe; Z89.422 Acquired absence of other left toe(s); Z89.421 Acquired absence of other right toe(s); B95.62 Methicillin resistant Staphylococcus aureus infection as the cause of diseases classified elsewhere; L03.031 Cellulitis of right toe; I10 Essential (primary) hypertension; B95.4 Other streptococcus as the cause of diseases classified elsewhere; E86.1 Hypovolemia; B96.5 Pseudomonas (aeruginosa) (mallei) (pseudomallei) as the cause of diseases classified elsewhere; E78.5 Hyperlipidemia, unspecified; Z79.85 Long-term (current) use of injectable non-insulin antidiabetic drugs; Z79.899 Other long term (current) drug therapy
CPT/HCPCS: 36415; 36573; 71045; 80048; 80053; 80202; 82565; 83036; 83735; 85025; 85652; 86140; 87040; 87070; 87075; 87077; 87186; 87205; 93005; 99285

== ENCOUNTER 2024-05-01 19:46 | Emergency (ER) | payer OTHER ==
[2024-05-01 20:00] VITALS: TEMP 97.9
--- NOTE | 2024-05-01 20:32 | ED ---
General Adult HPI - General Chief complaint: Recheck/Abnormal Lab/Rx Stated complaint: Abnormal Labs Time Seen by Provider: 05/01/24 20:17 Source: patient Mode of arrival: ambulatory - History of Present Illness Initial comments: Patient presents to the ED with his for evaluation. Patient states that his home health nurse checked his labs today, and he was told that his he moglobin was 5 so he was instructed to come to the ED. Patient states that he has been more fatigued than usual over the past 2 days, and he states that he has felt somewhat generally weak today. Patient also states that he has had darker than usual stools for the past 3 to 4 days. Patient states that he has a PICC line in place for IV antibiotics to treat a right foot infection. Patient denies anticoagulant medication use, excessive aspirin/NSAID use, abdominal pain, fever or chills, headache, focal neuro deficit, chest pain or pressure, dyspnea, palpitations, dizziness, syncope, hematochezia, diarrhea or constipation, dysuria/hematuria/urinary frequency/urinary symptoms, or any other symptoms or complaints. - Related Data Home Medications Medication Instructions Recorded Confirmed Atorvastatin [Lipitor] 20 mg PO HS 04/07/24 04/07/24 Insulin Aspart Prot/Insuln Asp 15 units SQ AC-BID PRN 04/07/24 04/07/24 [NovoLOG MIX 70-30 Flexpen] L.acidoph,Paracasei, B.lactis 1 cap PO DAILY 04/07/24 04/07/24 [Probiotic] Metoprolol Tartrate [Lopressor] 25 mg PO BID 04/07/24 04/07/24 lisinopriL 40 mg PO DAILY 04/07/24 04/07/24 Previous Rx's Medication Instructions Recorded Cefepime [Maxipime] 2 gm IVPB Q8H #126 each 04/13/24 Vancomycin 1,750 mg IVPB Q12HR #84 each 04/13/24 metroNIDAZOLE [Flagyl] 500 mg PO TID #90 tab 04/13/24 Acetaminophen Tab [Tylenol] 650 mg PO Q6HR PRN tab 04/14/24 Famotidine [Pepcid] 20 mg PO BID #60 tab 04/14/24 amLODIPine [Norvasc] 10 mg PO DAILY #30 tab 04/14/24 Ondansetron [Zofran] 4 mg PO Q8HR PRN #60 tab 04/18/24 Allergies Allergy/AdvReac Type Severity Reaction Status Date / Time vancomycin AdvReac Unknown Verified 05/01/24 20:00 Review of Systems ROS Statement: Those systems with pertinent positive or pertinent negative responses have been documented in the HPI. ROS Other: All systems not noted in ROS Statement are negative. 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 History of Any Multi-Drug Resistant Organisms: MRSA Date of last positivie culture/infection: 04/08/24 MDRO Source:: RT FOOT Past Surgical History: Orthopedic Surgery Additional Past Surgical History / Comment(s): Left foot 2 first toes amputation, Right foot amp of middle toe and partial of great toe, Left foot surgery for charcots Past Anesthesia/Blood Transfusion Reactions: Previous Problems w/ Anesthesia Additional Past Anesthesia/Blood Transfusion Reaction / Comment(s): Patient verb waking up during one surgery Past Psychological History: No Psychological Hx Reported Smoking Status: Never smoker Past Alcohol Use History: None Reported Past Drug Use History: None Reported - Past Family History Father Family Medical History: CVA/TIA Mother Family Medical History: Diabetes Mellitus General Exam Limitations: no limitations General appearance: alert, in no apparent distress Eye exam: Present: normal appearance ENT exam: Present: mucous membranes moist Respiratory exam: Present: normal lung sounds bilaterally. Absent: respiratory distress, wheezes, rales, rhonchi, stridor Cardiovascular Exam: Present: regular rate, normal rhythm, normal heart sounds, other (Normal radial pulses bilaterally) GI/Abdominal exam: Present: soft. Absent: distended, tenderness, guarding Rectal exam: Present: normal rectal tone, other (Brown-colored stool was retrieved on digital rectal exam and sent for Hemoccult testing; KUSHAL Hernandez was present during rectal examination). Absent: tenderness Extremities exam: Absent: pedal edema Neurological exam: Present: alert, oriented X3 Psychiatric exam: Present: normal affect Skin exam: Present: warm, dry, intact, other (Slightly pale in appearance) Course Vital Signs 05/01/24 05/01/24 19:55 21:07 Temperature 97.9 F Pulse Rate 77 76 Respiratory 17 18 Rate Blood Pressure 144/88 154/89 O2 Sat by Pulse 100 95 Oximetry - Reevaluation(s) Reevaluation #1: 05/01/24 22:22 Patient denies development of any new symptoms while in the ED. Patient remains alert and breathing comfortably with normal/stable vital signs. Patient and are aware of the patient's test results, and patient feels comfortable being discharged home at this time. He was counseled about anemia. He was clearly explained return and follow-up instructions, and he was instructed to follow-up closely with his primary care provider. Patient feels comfortable with this plan. EKG Findings - EKG Comments: EKG Findings:: ED physician interpretation (interpreted by me): Normal sinus rhythm, no ectopy, ventricular rate of 78 bpm, normal MS and QRS intervals, normal QT interval, normal axis, no ST or T wave abnormality Medical Decision Making - Medical Decision Making Was pt. sent in by a medical professional or institution (, PA, CLAIMS COUNSEL, urgent care, hospital, or senior care...) When possible be specific @ -No Did you speak to anyone other than the patient for history (EMS, parent, family, police, friend...)? What history was obtained from this source @ -No Did you review nursing and triage notes (agree or disagree)? Why? @ -I reviewed and agree with nursing and triage notes Were old charts reviewed (outside hosp., previous admission, EMS record, old EKG, old radiological studies, urgent care reports/EKG's, senior care records)? Report findings @ -No old charts were reviewed Differential Diagnosis (chest pain, altered mental status, abdominal pain women, abdominal pain men, vaginal bleeding, weakness, fever, dyspnea, syncope, headache, dizziness, GI bleed, back pain, seizure, CVA, palpatations, mental health, musculoskeletal)? @ -Anemia, GI bleed, anemia of chronic disease, iron deficiency anemia, aplastic anemia, lab error EKG interpreted by me (3pts min.). @ -As above X-rays interpreted by me (1pt min.). @ -None done CT interpreted by me (1pt min.). @ -None done U/S interpreted by me (1pt. min.). @ -None done What testing was considered but not performed or refused? (CT, X-rays, U/S, labs)? Why? @ -None What meds were considered but not given or refused? Why? @ -None Did you discuss the management of the patient with other professionals (professionals i.e. , PA, CLAIMS COUNSEL, lab, RT, psych nurse, social sciences instructor, bicycle technician, teacher, loan officer, immigration case manager)? Give summary @ -No Was smoking cessation discussed for >3mins.? @ -No Was critical care preformed (if so, how long)? @ -No Were there social determinants of health that impacted care today? How? (Homelessness, low income, unemployed, alcoholism, drug addiction, transportatio n, low edu. Level, literacy, decrease access to med. care, fpc, rehab)? @ -No Was there de-escalation of care discussed even if they declined (Discuss DNR or withdrawal of care, Hospice)? DNR status @ -No What co-morbidities impacted this encounter? (DM, HTN, Smoking, COPD, CAD, Cancer, CVA, ARF, Chemo, Hep., AIDS, mental health diagnosis, sleep apnea, morbid obesity)? @ -None Was patient admitted / discharged? Hospital course, mention meds given and route, prescriptions, significant lab abnormalities, going to OR and other pertinent info. @ -Patient's Hemoccult test is negative. Patient had brown stool on rectal examination. Patient's hemoglobin is stable (when compared to his most recent levels) at 9.3. I suspect that the hemoglobin level of 5 that was reported to him today was a lab error. The rest of the patient's labs are fairly unremarkable. Will discharge patient home at this time. Patient was instructed to follow-up closely with his primary care provider for further evaluation of his stable anemia. Patient feels comfortable with this plan. Undiagnosed new problem with uncertain prognosis? @ -No Drug Therapy requiring intensive monitoring for toxicity (Heparin, Nitro, Insulin, Cardizem)? @ -No Were any procedures done? @ -No Diagnosis/symptom? @ -Anemia Acute, or Chronic, or Acute on Chronic? @ -Chronic Uncomplicated (without systemic symptoms) or Complicated (systemic symptoms)? @ -Default Side effects of treatment? @ -No Exacerbation, Progression, or Severe Exacerbation? @ -No Poses a threat to life or bodily function? How? (Chest pain, [place], [place], pneumonia, PE, COPD, DKA, ARF, appy, cholecystitis, CVA, Diverticulitis, Homicidal, Suicidal, threat to staff... and all critical care pts) @ -No - Lab Data Result diagrams: 05/01/24 20:35 05/01/24 20:35 Lab Results 05/01/24 05/01/24 05/01/24 Range/Units 20:35 20:35 20:35 WBC 6.8 (3.8-10.6) k/uL RBC 3.39 L (4.30-5.90) m/uL Hgb 9.3 L (13.0-17.5) gm/dL Hct 28.7 L (39.0-53.0) % MCV 84.6 (80.0-100.0) fL MCH 27.4 (25.0-35.0) pg MCHC 32.4 (31.0-37.0) g/dL RDW 14.4 (11.5-15.5) % Plt Count 288 (150-450) k/uL MPV 7.2 Neutrophils % 60 % Lymphocytes % 27 % Monocytes % 7 % Eosinophils % 4 % Basophils % 1 % Neutrophils # 4.1 (1.3-7.7) k/uL Lymphocytes # 1.8 (1.0-4.8) k/uL Monocytes # 0.5 (0-1.0) k/uL Eosinophils # 0.3 (0-0.7) k/uL Basophils # 0.1 (0-0.2) k/uL PT 11.3 (10.0-12.5) sec INR 1.0 (<1.2) APTT 23.7 (22.0-30.0) sec Sodium 139 (137-145) mmol/L Potassium 4.7 (3.5-5.1) mmol/L Chloride 111 H (98-107) mmol/L Carbon Dioxide 21 L (22-30) mmol/L Anion Gap 7 mmol/L BUN 31 H (9-20) mg/dL Creatinine 1.55 H (0.66-1.25) mg/dL Est GFR (CKD-EPI)AfAm 67 (>60 ml/min/1.73 sqM) Est GFR (CKD-EPI)NonAf 58 (>60 ml/min/1.73 sqM) Glucose 129 H (74-99) mg/dL Plasma Lactic Acid Solomon (0.7-2.0) mmol/L Calcium 9.4 (8.4-10.2) mg/dL Total Bilirubin 0.4 (0.2-1.3) mg/dL AST 34 (17-59) U/L ALT 39 (4-49) U/L Alkaline Phosphatase 52 (38-126) U/L Troponin I (0.000-0.034) ng/mL Total Protein 6.3 (6.3-8.2) g/dL Albumin 3.7 (3.5-5.0) g/dL Stool Occult Blood (Negative) 05/01/24 05/01/24 05/01/24 Range/Units 20:35 20:35 20:37 WBC (3.8-10.6) k/uL RBC (4.30-5.90) m/uL Hgb (13.0-17.5) gm/dL Hct (39.0-53.0) % MCV (80.0-100.0) fL MCH (25.0-35.0) pg MCHC (31.0-37.0) g/dL RDW (11.5-15.5) % Plt Count (150-450) k/uL MPV Neutrophils % % Lymphocytes % % Monocytes % % Eosinophils % % Basophils % % Neutrophils # (1.3-7.7) k/uL Lymphocytes # (1.0-4.8) k/uL Monocytes # (0-1.0) k/uL Eosinophils # (0-0.7) k/uL Basophils # (0-0.2) k/uL PT (10.0-12.5) sec INR (<1.2) APTT (22.0-30.0) sec Sodium (137-145) mmol/L Potassium (3.5-5.1) mmol/L Chloride (98-107) mmol/L Carbon Dioxide (22-30) mmol/L Anion Gap mmol/L BUN (9-20) mg/dL Creatinine (0.66-1.25) mg/dL Est GFR (CKD-EPI)AfAm (>60 ml/min/1.73 sqM) Est GFR (CKD-EPI)NonAf (>60 ml/min/1.73 sqM) Glucose (74-99) mg/dL Plasma Lactic Acid Solomon 0.6 L (0.7-2.0) mmol/L Calcium (8.4-10.2) mg/dL Total Bilirubin (0.2-1.3) mg/dL AST (17-59) U/L ALT (4-49) U/L Alkaline Phosphatase (38-126) U/L Troponin I <0.012 (0.000-0.034) ng/mL Total Protein (6.3-8.2) g/dL Albumin (3.5-5.0) g/dL Stool Occult Blood Negative (Negative) Disposition Clinical Impression: Anemia Disposition: HOME SELF-CARE Condition: Stable Instructions (If sedation given, give patient instructions): Anemia (ED) Additional Instructions: Return to the ER immediately should you develop any significant pain, bleeding, a fever, vomiting, shortness of breath, feeling dizzy or faint, or new or worsening symptoms. Follow-up closely with your primary care provider. Is patient prescribed a controlled substance at d/c from ED?: No Referrals: Natalie Aranda MD [Primary Care Provider] - 1-2 days Time of Disposition: 22:27
[2024-05-01] MEDS: SODIUM CHLORIDE 0.9% 500 ML 500 ML IV STA (21:04)
[2024-05-01 21:08] VITALS: RESP 18
[2024-05-01 21:08] LABS: Basophils # (A) 0.1 k/uL (0-0.2); Basophils % (A) 1 %; Eosinophils # (A) 0.3 k/uL (0-0.7); Eosinophils % (A) 4 %; HCT 28.7 % (39.0-53.0); HGB 9.3 gm/dL (13.0-17.5); Lymphocytes # (A) 1.8 k/uL (1.0-4.8); Lymphocytes % (A) 27 %; MCH 27.4 pg (25.0-35.0); MCHC 32.4 g/dL (31.0-37.0); MCV 84.6 fL (80.0-100.0); Mean Platelet Volume 7.2; Monocytes # (A) 0.5 k/uL (0-1.0); Monocytes % (A) 7 %; Neutrophils # (A) 4.1 k/uL (1.3-7.7); Neutrophils % (A) 60 %; Platelet Count 288 k/uL (150-450); RBC 3.39 m/uL (4.30-5.90); RDW 14.4 % (11.5-15.5); WBC 6.8 k/uL (3.8-10.6)
[2024-05-01 21:38] LABS: ALT 39 U/L (4-49); AST 34 U/L (17-59); African American GFR (CKD) 67 (>60 ml/min/1.73 sqM); Albumin 3.7 g/dL (3.5-5.0); Alkaline Phosphatase 52 U/L (38-126); Anion Gap 7 mmol/L; Blood Urea Nitrogen 31 mg/dL (9-20); Calcium 9.4 mg/dL (8.4-10.2); Carbon Dioxide 21 mmol/L (22-30); Chloride 111 mmol/L (98-107); Glucose 129 mg/dL (74-99); Non-African American GFR(CKD) 58 (>60 ml/min/1.73 sqM); Potassium 4.7 mmol/L (3.5-5.1); Sodium 139 mmol/L (137-145); Total Bilirubin 0.4 mg/dL (0.2-1.3); Total Protein 6.3 g/dL (6.3-8.2)
[2024-05-01 21:54] LABS: Partial Thromboplastin Time 23.7 sec (22.0-30.0); Prothrombin Time 11.3 sec (10.0-12.5)
[2024-05-01 22:42] VITALS: BP 155/88; PULSE 93
== END 2024-05-01 22:45 | disposition home or self-care (01) ==
LOC: EC 19:46
DX: D64.9 Anemia, unspecified (principal); R79.89 Other specified abnormal findings of blood chemistry; Z88.1 Allergy status to other antibiotic agents
CPT/HCPCS: 36415; 80053; 82272; 83605; 84484; 85025; 85610; 85730; 93005; 96360; 99284

== ENCOUNTER 2024-09-13 19:57 | Inpatient (IN) | payer OTHER ==
[2024-09-13] MEDS: SODIUM CHLORIDE 0.9% 1,000 ML IV STA ×2 (21:32)
[2024-09-13 21:34] LABS: Basophils # (A) 0.1 k/uL (0-0.2); Basophils % (A) 1 %; Eosinophils # (A) 0.2 k/uL (0-0.7); Eosinophils % (A) 3 %; HCT 36.3 % (39.0-53.0); HGB 11.8 gm/dL (13.0-17.5); Lymphocytes # (A) 2.4 k/uL (1.0-4.8); Lymphocytes % (A) 26 %; MCH 28.1 pg (25.0-35.0); MCHC 32.4 g/dL (31.0-37.0); MCV 86.7 fL (80.0-100.0); Mean Platelet Volume 7.1; Monocytes # (A) 0.5 k/uL (0-1.0); Monocytes % (A) 5 %; Neutrophils # (A) 6.1 k/uL (1.3-7.7); Neutrophils % (A) 65 %; Platelet Count 312 k/uL (150-450); RBC 4.19 m/uL (4.30-5.90); WBC 9.3 k/uL (3.8-10.6)
[2024-09-13 21:48] LABS: ALT 42 U/L (4-49); AST 32 U/L (17-59); African American GFR (CKD) 68 (>60 ml/min/1.73 sqM); Albumin 4.3 g/dL (3.5-5.0); Alkaline Phosphatase 72 U/L (38-126); Anion Gap 8 mmol/L; Blood Urea Nitrogen 21 mg/dL (9-20); Calcium 9.8 mg/dL (8.4-10.2); Carbon Dioxide 24 mmol/L (22-30); Chloride 109 mmol/L (98-107); Non-African American GFR(CKD) 58 (>60 ml/min/1.73 sqM); Potassium 4.7 mmol/L (3.5-5.1); Sodium 141 mmol/L (137-145); Total Bilirubin 0.4 mg/dL (0.2-1.3); Total Protein 7.3 g/dL (6.3-8.2)
[2024-09-13 21:49] LABS: Glucose 284 mg/dL (74-99)
--- NOTE | 2024-09-13 22:04 | XR ---
EXAMINATION TYPE: XR foot limited RT DATE OF EXAM: 09/13/2024 9:46 PM COMPARISON: 07/15/2023 CLINICAL INDICATION: Male, 33 years old with history of eval for osteomyelitis, TECHNIQUE: 2 view(s) obtained. FINDINGS: There is amputation of the first digit. There is amputation of the distal most portion of the proxima l phalanx second digit. There is amputation of the third digit. There appears to be resection of the fifth metatarsal with some residual distal fifth metatarsal head fused with the Orth metatarsal. Dege nerative joint changes are at the metatarsophalangeal joint spaces of the second fourth and fifth dig its. Some soft tissue swelling is over the ball of foot. Osseous spurring is at the level of the base of t he fifth metatarsal region. Soft tissue swelling mainly over the distal digit. Suspicious cortical erosion is not identified. IMPRESSION: 1. A suspicious cortical erosion to suggest osteomyelitis is not clearly evident. 2. Extensive postsurgical changes through the distal foot [facility], , 09/13/2024 10:02 PM
[2024-09-13] MEDS: CLINDAMYCIN 600 MG in DEXTROSE 5% IN WATER 50 ML IVPB SCH (23:12)
[2024-09-14] MEDS ORDERED: ONDANSETRON 4 MG/2 ML VIAL IVP PRN (00:05)
[2024-09-14] MEDS ORDERED: NALOXONE 0.4 MG/ML 1 ML VIAL IV PRN (00:05)
--- NOTE | 2024-09-14 00:05 | ED ---
General Adult HPI - General Chief complaint: Skin/Abscess/Foreign Body Stated complaint: toe infection Time Seen by Provider: 09/13/24 20:45 Source: patient, RN notes reviewed, old records reviewed Mode of arrival: wheelchair Limitations: no limitations - History of Present Illness Initial comments: Patient is a 33-year-old male with past medical history remarkable for diabetes, neuropathy, amputation of right toes who presents emergency department with acute on chronic right toe infection. It is on his right fourth toe. States he has been on doxycycline for 1 week but feels like it is worsening in terms of size as well as discharge from the toe. Denies any fevers or chills. No systemic symptoms. Denies chest pain or shortness of breath. Denies abdominal pain. Presents over concern for need for IV antibiotics. Patient is allergic to Bactrim as well as vancomycin. - Related Data Home Medications Medication Instructions Recorded Confirmed Atorvastatin [Lipitor] 20 mg PO HS 04/07/24 04/07/24 Insulin Aspart Prot/Insuln Asp 15 units SQ AC-BID PRN 04/07/24 04/07/24 [NovoLOG MIX 70-30 Flexpen] L.acidoph,Paracasei, B.lactis 1 cap PO DAILY 04/07/24 04/07/24 [Probiotic] Metoprolol Tartrate [Lopressor] 25 mg PO BID 04/07/24 04/07/24 lisinopriL 40 mg PO DAILY 04/07/24 04/07/24 Previous Rx's Medication Instructions Recorded Cefepime [Maxipime] 2 gm IVPB Q8H #126 each 04/13/24 Vancomycin 1,750 mg IVPB Q12HR #84 each 04/13/24 metroNIDAZOLE [Flagyl] 500 mg PO TID #90 tab 04/13/24 Acetaminophen Tab [Tylenol] 650 mg PO Q6HR PRN tab 04/14/24 Famotidine [Pepcid] 20 mg PO BID #60 tab 04/14/24 amLODIPine [Norvasc] 10 mg PO DAILY #30 tab 04/14/24 Ondansetron [Zofran] 4 mg PO Q8HR PRN #60 tab 04/18/24 Allergies Allergy/AdvReac Type Severity Reaction Status Date / Time sulfamethoxazole AdvReac Unknown Verified 09/13/24 20:06 [From Bactrim] trimethoprim [From Bactrim] AdvReac Unknown Verified 09/13/24 20:06 vancomycin AdvReac Unknown Verified 09/13/24 20:06 Review of Systems ROS Statement: Those systems with pertinent positive or pertinent negative responses have been documented in the HPI. Review of Systems: CONST: Denies fever EYES: Denies blurry vision ENT: Denies nasal congestion C/V: Denies Chest pain RESP: Denies shortness of breath GI: Denies abdominal pain : Denies dysuria SKIN: Has right toe wound MSK: Denies joint pain. NEURO: Denies headache ROS Other: All systems not noted in ROS Statement are negative. 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 History of Any Multi-Drug Resistant Organisms: MRSA Date of last positivie culture/infection: 04/08/24 MDRO Source:: RT FOOT Past Surgical History: Orthopedic Surgery Additional Past Surgical History / Comment(s): Left foot 2 first toes amputation, Right foot amp of middle toe and partial of great toe, Left foot surgery for charcots Past Anesthesia/Blood Transfusion Reactions: Previous Problems w/ Anesthesia Additional Past Anesthesia/Blood Transfusion Reaction / Comment(s): Patient verb waking up during one surgery Past Psychological History: No Psychological Hx Reported Smoking Status: Never smoker Past Alcohol Use History: None Reported Past Drug Use History: None Reported - Past Family History Father Family Medical History: CVA/TIA Mother Family Medical History: Diabetes Mellitus General Exam - General Exam Comments Initial Comments: General: Afebrile HEAD: Normal with no signs of head trauma. EYES: EOMI ENT: Hearing grossly intact, normal oropharynx. RESPIRATORY: Clear breath sounds bilaterally. No wheezes, rales, or rhonchi. C/V: Regular rate and rhythm. S1 and S2 auscultated, no edema, peripheral pulses 2+ and intact throughout ABD: Abd is soft, nontender, nondistended EXT: Normal range of motion, no obvious deformity SKIN: Open wound on distal aspect of right third toe that has purulent discharge. Surrounding erythema. NEURO: Alert and oriented x 4. Focal neurological deficits. Limitations: no limitations Course Vital Signs 09/13/24 20:00 Temperature 97.7 F Pulse Rate 98 Respiratory 18 Rate Blood Pressure 101/68 O2 Sat by Pulse 100 Oximetry Medical Decision Making - Medical Decision Making Was pt. sent in by a medical professional or institution (MARIO Zhang, MAINTENANCE ENGINEER, urgent care, hospital, or halfway...) When possible be specific @ -No Did you speak to anyone other than the patient for history (EMS, parent, family, police, friend...)? What history was obtained from this source @ -No Did you review nursing and triage notes (agree or disagree)? Why? @ -I reviewed and agree with nursing and triage notes Were old charts reviewed (outside hosp., previous admission, EMS record, old EKG, old radiological studies, urgent care reports/EKG's, halfway records)? Report findings @ -No old charts were reviewed Differential Diagnosis (chest pain, altered mental status, abdominal pain women, abdominal pain men, vaginal bleeding, weakness, fever, dyspnea, syncope, head ache, dizziness, GI bleed, back pain, seizure, CVA, palpatations, mental health, musculoskeletal)? @ -Diabetic foot wound, osteomyelitis, sepsis. This list is not all inclusive. EKG interpreted by me (3pts min.). @ -As above X-rays interpreted by me (1pt min.). @ -X-ray negative for any obvious evidence of osteomyelitis. CT interpreted by me (1pt min.). @ -None done U/S interpreted by me (1pt. min.). @ -None done What testing was considered but not performed or refused? (CT, X-rays, U/S, labs)? Why? @ -None What meds were considered but not given or refused? Why? @ -None Did you discuss the management of the patient with other professionals (professionals i.e. MARIO Zhang, MAINTENANCE ENGINEER, lab, RT, psych nurse, social insurance analyst, oracle application consultant, teacher, strategic intelligence officer, pillowcase folder)? Give summary @ -Discussed with the admitting provider, HERNAN Buchanan with the matrix after the admission. Was smoking cessation discussed for >3mins.? @ -No Was critical care preformed (if so, how long)? @ -No Were there social determinants of health that impacted care today? How? (Homelessness, low income, unemployed, alcoholism, drug addiction, transportation, low edu. Level, literacy, decrease access to med. care, detention, rehab)? @ -No Was there de-escalation of care discussed even if they declined (Discuss DNR or withdrawal of care, Hospice)? DNR status @ -No What co-morbidities impacted this encounter? (DM, HTN, Smoking, COPD, CAD, Cancer, CVA, ARF, Chemo, Hep., AIDS, mental health diagnosis, sleep apnea, mor bid obesity)? @ -Diabetes Was patient admitted / discharged? Hospital course, mention meds given and route, prescriptions, significant lab abnormalities, going to OR and other pertinent info. @ -Patient presents with diabetic foot wound on the right fourth toe which failed outpatient treatment. Vital signs are within acceptable limits. We will obtain screening x-ray, cultures, as well as basic labs. He was in agreement this plan. He will be given a fluid bolus and started on maintenance fluids. Patient is allergic to vancomycin therefore was started on clindamycin. Laboratory studies remarkable for no evidence of leukocytosis. Patient has an elevated BUN and creatinine which does appear somewhat chronic for the patient dating back to April of this year. Imaging negative for osteomyelitis. Cultures are pending. Patient updated. He will be admitted. Infectious disease will be consulted. He was in agreement this plan. I spoke with the admitting provider, HERNAN Buchanan of [facility] who accepted the admission. Undiagnosed new problem with uncertain prognosis? @ -No Drug Therapy requiring intensive monitoring for toxicity (Heparin, Nitro, Insulin, Cardizem)? @ -No Were any procedures done? @ -No Diagnosis/symptom? @ -Failed outpatient treatment of infected diabetic foot wound, cellulitis Acute, or Chronic, or Acute on Chronic? @ -Acute Uncomplicated (without systemic symptoms) or Complicated (systemic symptoms)? @ -Complicated Side effects of treatment? @ -No Exacerbation, Progression, or Severe Exacerbation? @ -No Poses a threat to life or bodily function? How? (Chest pain, [place], [place], pneumonia, PE, COPD, DKA, ARF, appy, cholecystitis, CVA, Diverticulitis, Homicidal, Suicidal, threat to staff... and all critical care pts) @ -Yes - Lab Data Result diagrams: 09/13/24 21:25 09/13/24 21:25 Lab Results 09/13/24 09/13/24 Range/Units 21:25 21:25 WBC 9.3 (3.8-10.6) k/uL RBC 4.19 L (4.30-5.90) m/uL Hgb 11.8 L (13.0-17.5) gm/dL Hct 36.3 L (39.0-53.0) % MCV 86.7 (80.0-100.0) fL MCH 28.1 (25.0-35.0) pg MCHC 32.4 (31.0-37.0) g/dL RDW 13.0 (11.5-15.5) % Plt Count 312 (150-450) k/uL MPV 7.1 Neutrophils % 65 % Lymphocytes % 26 % Monocytes % 5 % Eosinophils % 3 % Basophils % 1 % Neutrophils # 6.1 (1.3-7.7) k/uL Lymphocytes # 2.4 (1.0-4.8) k/uL Monocytes # 0.5 (0-1.0) k/uL Eosinophils # 0.2 (0-0.7) k/uL Basophils # 0.1 (0-0.2) k/uL Sodium 141 (137-145) mmol/L Potassium 4.7 (3.5-5.1) mmol/L Chloride 109 H (98-107) mmol/L Carbon Dioxide 24 (22-30) mmol/L Anion Gap 8 mmol/L BUN 21 H (9-20) mg/dL Creatinine 1.53 H (0.66-1.25) mg/dL Est GFR (CKD-EPI)AfAm 68 (>60 ml/min/1.73 sqM) Est GFR (CKD-EPI)NonAf 58 (>60 ml/min/1.73 sqM) Glucose 284 H (74-99) mg/dL Calcium 9.8 (8.4-10.2) mg/dL Total Bilirubin 0.4 (0.2-1.3) mg/dL AST 32 (17-59) U/L ALT 42 (4-49) U/L Alkaline Phosphatase 72 (38-126) U/L Total Protein 7.3 (6.3-8.2) g/dL Albumin 4.3 (3.5-5.0) g/dL Disposition Clinical Impression: Cellulitis, Wound of foot Disposition: ADMITTED IP TO THIS [facility] Condition: Stable Referrals: Nonstaff,Physician [Primary Care Provider] - 1-2 days Time of Disposition: 00:01
[2024-09-14] MEDS ORDERED: DEXTROSE 50% SYRINGE 50 ML IVP PRN ×2 (00:07)
[2024-09-14 06:29] LABS: Glucose,Whole Blood 146 mg/dL (70-110)
[2024-09-14] MEDS: INSULIN ASPART (NovoLOG) 100 UNIT/ML VIAL SQ SCH (06:53)
[2024-09-14] MEDS: HEPARIN SODIUM,PORCINE 5,000 UNIT/ML 1 ML VIAL SQ SCH (08:31)
[2024-09-14 11:35] LABS: Glucose,Whole Blood 150 mg/dL (70-110)
--- NOTE | 2024-09-14 12:59 | P.HPIM ---
History of Present Illness This is a pleasant 33 years old male with past medical history of multiple medical problems including diabetes mellitus and neuropathy. Presents because of right diabetic foot ulcer infection of the right second toe. As per patient started about 1.5-week ago and he has been following with research software engineer however he looks like he failed outpatient treatment so he was referred to the hospital His PCP is Dr. Aranda Patient denies chest pain or dyspnea. No other complaints Patient denies smoking alcohol or illicit drugs. He is afebrile Creatinine 1.5 which looks like his baseline Rest of other labs like CBC, BMP, LFT were unremarkable. Foot x-ray showing suspicion of cortical erosion to suggest osteomyelitis Wound culture is pending. Currently is on clindamycin Review of Systems Review of systems CONSTITUTIONAL: No fever, no malaise, no fatigue. HEENT: No recent visual problems or hearing problems. Denied any sore throat. CARDIOVASCULAR: No orthopnea, PND, no palpitations, no syncope. PULMONARY: No shortness of breath, no cough, no hemoptysis. GASTROINTESTINAL: No diarrhea, no nausea, no vomiting, no abdominal pain. Normoactive bowel sounds. NEUROLOGICAL: No headaches, no weakness, no numbness. HEMATOLOGICAL: Denies any bleeding or petechiae. GENITOURINARY: Denies any burning micturition, frequency, or urgency. MUSCULOSKELETAL/RHEUMATOLOGICAL: Denies any joint pain, swelling, or any muscle pain. ENDOCRINE: Denies any polyuria or polydipsia. Past Medical History Past Medical History: Diabetes Mellitus, Hypertension Additional Past Medical History / Comment(s): neuropathy, Charcots arthritis in Left foot. Orthostatic Hypertension History of Any Multi-Drug Resistant Organisms: MRSA Date of last positivie culture/infection: 04/08/24 MDRO Source:: RT FOOT Past Surgical History: Orthopedic Surgery Additional Past Surgical History / Comment(s): Left foot 2 first toes amputation, Right foot amp of middle toe and partial of great toe, Left foot surgery for charcots Past Anesthesia/Blood Transfusion Reactions: Previous Problems w/ Anesthesia Additional Past Anesthesia/Blood Transfusion Reaction / Comment(s): Patient verb waking up during one surgery Past Psychological History: No Psychological Hx Reported Smoking Status: Never smoker Past Alcohol Use History: None Reported Past Drug Use History: None Reported - Past Family History Father Family Medical History: CVA/TIA Mother Family Medical History: Diabetes Mellitus Medications and Allergies Home Medications Medication Instructions Recorded Confirmed Type Atorvastatin [Lipitor] 20 mg PO HS 04/07/24 09/14/24 History Insulin Aspart Prot/Insuln Asp 15 units SQ AC-BID PRN 04/07/24 09/14/24 History [NovoLOG MIX 70-30 Flexpen] L.acidoph,Paracasei, B.lactis 1 cap PO DAILY 04/07/24 09/14/24 History [Probiotic] Metoprolol Tartrate [Lopressor] 25 mg PO BID 04/07/24 09/14/24 History Doxycycline Hyclate 100 mg PO BID 09/14/24 09/14/24 History Famotidine [Pepcid] 20 mg PO BID PRN 09/14/24 09/14/24 History amLODIPine [Norvasc] 5 mg PO HS 09/14/24 09/14/24 History lisinopriL [Prinivil] 20 mg PO DAILY 09/14/24 09/14/24 History Allergies Allergy/AdvReac Type Severity Reaction Status Date / Time sulfamethoxazole AdvReac Unknown Verified 09/13/24 20:06 [From Bactrim] trimethoprim [From Bactrim] AdvReac Unknown Verified 09/13/24 20:06 vancomycin AdvReac Unknown Verified 09/13/24 20:06 Physical Exam Vitals: Vital Signs Temp Pulse Pulse Resp BP BP Pulse Ox 09/14/24 06:58 98.1 F 77 17 150/96 99 09/14/24 01:11 97.9 F 88 17 125/87 100 09/14/24 01:07 97.9 F 88 18 125/87 100 09/14/24 00:59 97.6 F 86 18 157/93 100 09/13/24 20:00 97.7 F 98 18 101/68 100 Intake and Output 09/13/24 09/14/24 09/14/24 22:59 06:59 14:59 Other: Voiding Method Toilet # Voids 1 Weight 97.522 kg 97.522 kg GENERAL: The patient is alert and oriented x3, not in any acute distress. Well developed, well nourished. HEENT: Pupils are round and equally reacting to light. EOMI. No scleral icterus. No conjunctival pallor. Normocephalic, atraumatic. No pharyngeal erythema. No thyromegaly. CARDIOVASCULAR: S1 and S2 present. No murmurs, rubs, or gallops. PULMONARY: Chest is clear to auscultation, no wheezing , no crackles. ABDOMEN: Soft, nontender, nondistended, normoactive bowel sounds. No palpable organomegaly. MUSCULOSKELETAL: No joint swelling or deformity. EXTREMITIES: No cyanosis, clubbing, or pedal edema. -Right second toe foot ulcer with cellulitis NEUROLOGICAL: Gross neurological examination did not reveal any focal deficits. SKIN: No rashes. no petechiae. Results CBC & Chem 7: 09/13/24 21:09/13/24 21: Labs: Abnormal Lab Results - Last 24 Hours (Table) 09/13/24 09/13/24 09/14/24 Range/Units 21:25 21: 06:28 RBC 4.19 L (4.30-5.90) m/uL Hgb 11.8 L (13.0-17.5) gm/dL Hct 36.3 L (39.0-53.0) % Chloride 109 H (98-107) mmol/L BUN 21 H (9-20) mg/dL Creatinine 1.53 H (0.66-1.25) mg/dL Glucose 284 H (74-99) mg/dL POC Glucose (mg/dL) 146 H (70-110) mg/dL Thrombosis Risk Factor Assmnt - Choose All That Apply Any of the Below Risk Factors Present?: No Other Risk Factors: No Thrombosis Risk Factor Assessment Level: Very Low Risk Assessment and Plan Assessment: Right foot second toe diabetic ulcer, failed outpatient treatment Diabetic neuropathy Diabetes mellitus Hypertension Chronic kidney disease stage III Plan: Continue with antibiotic Infectious disease consult Follow-up culture results Monitor glucose. Check hemoglobin A1c Labs and medication were reviewed.. Continue same treatment. Continue with symptomatic treatment. Resume home medication. Monitor labs and vitals. DVT and GI prophylaxis. Further recommendations as per clinical course of the patient DVT prophylaxis: Subcutaneous heparin GI Prophylaxis: Pepcid PT/OT: Pending Prognosis is guarded
[2024-09-14] MEDS: ACETAMINOPHEN TAB 325 MG TAB PO PRN (13:08)
[2024-09-14] MEDS: CEFEPIME 2 GM in SODIUM CHLORIDE 0.9% 100 ML IVPB SCH (16:25)
[2024-09-14 16:34] LABS: Glucose,Whole Blood 176 mg/dL (70-110)
[2024-09-14 20:22] LABS: Glucose,Whole Blood 219 mg/dL (70-110)
[2024-09-15 06:22] LABS: Glucose,Whole Blood 221 mg/dL (70-110)
[2024-09-15 08:46] LABS: ALT 33 U/L (10-49); AST 20 U/L (14-35); Albumin 3.4 g/dL (3.8-4.9); Albumin/Globulin Ratio 1.42 Ratio (1.60-3.17); Alkaline Phosphatase 71 U/L (41-126); BUN/Creat Ratio 17.82 Ratio (12.00-20.00); Blood Urea Nitrogen 19.6 mg/dL (9.0-27.0); C Reactive Protein <0.30 mg/dL (0.00-0.80); Calcium 9.2 mg/dL (8.7-10.3); Chloride 109 mmol/L (96-109); Globulin 2.4 g/dL (1.6-3.3); Glucose 150 mg/dL (70-110); Potassium 4.9 mmol/L (3.5-5.5); Sodium 142 mmol/L (135-145); Total Bilirubin 0.3 mg/dL (0.3-1.2); Total Protein 5.8 g/dL (6.2-8.2)
[2024-09-15 09:21] LABS: Basophils # (A) 0.06 X 10*3/uL (0.00-0.10); Basophils % (A) 0.9 %; Eosinophils # (A) 0.33 X 10*3/uL (0.04-0.35); Eosinophils % (A) 4.9 %; HCT 31.7 % (39.6-50.0); HGB 10.5 g/dL (13.0-17.0); Lymphocytes # (A) 2.69 X 10*3/uL (0.90-5.00); Lymphocytes % (A) 40.2 %; MCH 27.7 pg (27.0-32.0); MCHC 33.1 g/dL (32.0-37.0); MCV 83.6 FL (80.0-97.0); Mean Platelet Volume 10.1 FL (9.5-12.2); Monocytes # (A) 0.37 X 10*3/uL (0.20-1.00); Monocytes % (A) 5.5 %; NRBC Per 100 WBC 0 X 10*3/uL (0.00-0.01); Neutrophils # (A) 3.22 X 10*3/uL (1.80-7.70); Neutrophils % (A) 48.2 %; Platelet Count 272 X 10*3/uL (140-440); RBC 3.79 X 10*6/uL (4.40-5.60); RDW 12.5 % (11.5-14.5); WBC 6.69 X 10*3/uL (4.50-10.00)
[2024-09-15 10:55] LABS: Erythrocyte Sedimentation Rate 8 mm/Hr (0-15)
[2024-09-15 11:30] LABS: Glucose,Whole Blood 190 mg/dL (70-110)
--- NOTE | 2024-09-15 12:19 | P.PN ---
Subjective This is a pleasant 33 years old male with past medical history of multiple medical problems including diabetes mellitus and neuropathy. Presents because of right diabetic foot ulcer infection of the right second toe. As per patient started about 1.5-week ago and he has been following with relationship manager however he looks like he failed outpatient treatment so he was referred to the hospital His PCP is Dr. Aranda Patient denies chest pain or dyspnea. No other complaints Patient denies smoking alcohol or illicit drugs. He is afebrile Creatinine 1.5 which looks like his baseline Rest of other labs like CBC, BMP, LFT were unremarkable. Foot x-ray showing suspicion of cortical erosion to suggest osteomyelitis Wound culture is pending. Currently is on clindamycin 09/15 Patient with no new complaint Is with infection with dressing in place for his right foot Culture is growing presumptive MRSA, currently he is covered with IV daptomycin and cefepime Also patient complains from left nasal lesion, concerns for infection and possible fluid collection, infectious disease consult already on the case, ENT team are consulted since admission Hemoglobin A1c 7.2%.pt is informed he says he was just on sliding scale at home. I talked to him going to add Levemir to the schedule sliding scale and he agrees Objective - Vital Signs Vital signs: Vital Signs Temp 98.0 F 09/15/24 06:49 Pulse 83 09/15/24 06:49 Resp 14 09/15/24 06:49 BP 146/92 09/15/24 06:49 Pulse Ox 98 09/15/24 06:49 FiO2 Intake & Output 09/14/24 09/15/24 09/15/24 18:59 06:59 18:59 Other: Voiding Method Toilet Toilet # Voids 1 - Exam GENERAL: The patient is alert and oriented x3, not in any acute distress. Well developed, well nourished. -HEENT: Pupils are round and equally reacting to light. EOMI. No scleral icterus. No conjunctival pallor. Normocephalic, atraumatic. No pharyngeal erythema. No thyromegaly. Left nasal lesion suspicious for infection and/or fluid collection, nontender, no surrounding cellulitis CARDIOVASCULAR: S1 and S2 present. No murmurs, rubs, or gallops. PULMONARY: Chest is clear to auscultation, no wheezing , no crackles. ABDOMEN: Soft, nontender, nondistended, normoactive bowel sounds. No palpable organomegaly. MUSCULOSKELETAL: No joint swelling or deformity. EXTREMITIES: No cyanosis, clubbing, or pedal edema. -Right second toe foot ulcer with cellulitis NEUROLOGICAL: Gross neurological examination did not reveal any focal deficits. SKIN: No rashes. no petechiae. - Labs CBC & Chem 7: 09/15/24 04:46 09/15/24 04:46 Labs: Abnormal Lab Results - Last 24 Hours (Table) 09/14/24 09/14/24 09/15/24 Range/Units 16:33 20:20 04:46 RBC (4.40-5.60) X 10*6/uL Hgb (13.0-17.0) g/dL Hct (39.6-50.0) % Glucose (70-110) mg/dL POC Glucose (mg/dL) 176 H 219 H (70-110) mg/dL Hemoglobin A1c 7.2 H (<=6.0) % Total Protein (6.2-8.2) g/dL Albumin (3.8-4.9) g/dL Albumin/Globulin Ratio (1.60-3.17) Ratio 09/15/24 09/15/24 09/15/24 Range/Units 04:46 04:46 06:19 RBC 3.79 L (4.40-5.60) X 10*6/uL Hgb 10.5 L (13.0-17.0) g/dL Hct 31.7 L (39.6-50.0) % Glucose 150 H (70-110) mg/dL POC Glucose (mg/dL) 221 H (70-110) mg/dL Hemoglobin A1c (<=6.0) % Total Protein 5.8 L (6.2-8.2) g/dL Albumin 3.4 L (3.8-4.9) g/dL Albumin/Globulin Ratio 1.42 L (1.60-3.17) Ratio 09/15/24 Range/Units 11:29 RBC (4.40-5.60) X 10*6/uL Hgb (13.0-17.0) g/dL Hct (39.6-50.0) % Glucose (70-110) mg/dL POC Glucose (mg/dL) 190 H (70-110) mg/dL Hemoglobin A1c (<=6.0) % Total Protein (6.2-8.2) g/dL Albumin (3.8-4.9) g/dL Albumin/Globulin Ratio (1.60-3.17) Ratio Microbiology - Last 24 Hours (Table) 09/13/24 21:25 Gram Stain - Preliminary Toe - Right Third Wound Culture - Preliminary Presumptive MRSA 09/13/24 21:25 Blood Culture - Preliminary Blood Assessment and Plan Assessment: Right foot second toe diabetic ulcer, failed outpatient treatment Left nasal lesion could be sebaceous cyst versus infection versus abscess Diabetic neuropathy Diabetes mellitus. Hemoglobin A1c 7.2% Hypertension Chronic kidney disease stage III Plan: Continue with antibiotic. Currently on daptomycin and cefepime Infectious disease consult Follow-up culture results ENT consult Monitor glucose. Start Levemir 3 units at bedtime with sliding scale. Labs and medication were reviewed.. Continue same treatment. Continue with symptomatic treatment. Resume home medication. Monitor labs and vitals. DVT and GI prophylaxis. Further recommendations as per clinical course of the patient DVT prophylaxis: Subcutaneous heparin GI Prophylaxis: Pepcid PT/OT: Pending Prognosis is guarded
--- NOTE | 2024-09-15 15:34 | P.CONS ---
History of Present Illness - Reason for Consult Consult date: 09/14/24 Failed outpatient diabetic wound Requesting physician: Tiago Hernandez - Chief Complaint Right second toe ulcer swelling and redness x days - History of Present Illness Patient is a 33-year-old male with a past medical history significant for diabetes mellitus hypertension patient did have a multiple diabetic foot toes infection with amputation of multiple toes patient presenting to the hospital for evaluation of increasing swelling redness to the right fourth toe patient thinking that he may have stopped it but did not recall any acute trauma symptom has been going on for more than a week and has been treated with a course of oral doxycycline without any improvement with worsening swelling redness the patient presented to the hospital patient denies high-grade fever or any chills and no temperature has been recorded on presentation the hospital pat ient denies having any chest pain shortness of breath or cough no nausea vomiting no abdominal pain no diarrhea patient did have diabetic neuropathy denies significant pain except some pressure sensation to the right. He did have some minimal drainage was cultured in the. Patient is also complaining of a painful sore to the nose bridge for the last few days without any drainage Patient did have a white count of 9.3, BUN and creatinine were elevated with a creatinine 1.53 electrolyte has been normal local culture. She currently pending patient did have x-ray of the toe no bony erosion. 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 Orthostatic Hypertension History of Any Multi-Drug Resistant Organisms: MRSA Year Discovered:: 04/08/24 MDRO Source:: RT FOOT Past Surgical History: Orthopedic Surgery Additional Past Surgical History / Comment(s): Left foot 2 first toes amputation, Right foot amp of middle toe and partial of great toe, Left foot surgery for charcots Past Anesthesia/Blood Transfusion Reactions: Previous Problems w/ Anesthesia Additional Past Anesthesia/Blood Transfusion Reaction / Comm: Patient verb waking up during one surgery Past Psychological History: No Psychological Hx Reported Smoking Status: Never smoker Past Alcohol Use History: None Reported Past Drug Use History: None Reported - Past Family History Father Family Medical History: CVA/TIA Mother Family Medical History: Diabetes Mellitus Medications and Allergies Home Medications Medication Instructions Recorded Confirmed Type Atorvastatin [Lipitor] 20 mg PO HS 04/07/24 09/14/24 History Insulin Aspart Prot/Insuln Asp 15 units SQ AC-BID PRN 04/07/24 09/14/24 History [NovoLOG MIX 70-30 Flexpen] L.acidoph,Paracasei, B.lactis 1 cap PO DAILY 04/07/24 09/14/24 History [Probiotic] Metoprolol Tartrate [Lopressor] 25 mg PO BID 04/07/24 09/14/24 History Doxycycline Hyclate 100 mg PO BID 09/14/24 09/14/24 History Famotidine [Pepcid] 20 mg PO BID PRN 09/14/24 09/14/24 History amLODIPine [Norvasc] 5 mg PO HS 09/14/24 09/14/24 History lisinopriL [Prinivil] 20 mg PO DAILY 09/14/24 09/14/24 History Allergies Allergy/AdvReac Type Severity Reaction Status Date / Time sulfamethoxazole AdvReac Unknown Verified 09/13/24 20:06 [From Bactrim] trimethoprim [From Bactrim] AdvReac Unknown Verified 09/13/24 20:06 vancomycin AdvReac Unknown Verified 09/13/24 20:06 Physical Exam Vitals: Vital Signs Temp Pulse Pulse Resp BP BP Pulse Ox 09/14/24 06:58 98.1 F 77 17 150/96 99 09/14/24 01:11 97.9 F 88 17 125/87 100 09/14/24 01:07 97.9 F 88 18 125/87 100 09/14/24 00:59 97.6 F 86 18 157/93 100 09/13/24 20:00 97.7 F 98 18 101/68 100 Intake and Output 09/13/24 09/14/24 09/14/24 22:59 06:59 14:59 Other: Voiding Method Toilet # Voids 1 Weight 97.522 kg 97.522 kg GENERAL DESCRIPTION: Middle-aged male lying in bed, no distress. No tachypnea or accessory muscle of respiration use. HEENT: Shows Pallor , no scleral icterus. Oral mucous membrane is dry. No pharyngeal erythema or thrush NECK: Trachea central, no thyromegaly. LUNGS: Unlabored breathing. Clear to auscultation anteriorly. No wheeze or crackle. HEART: S1, S2, regular rate and rhythm. No loud murmur ABDOMEN: Soft, no tenderness , guarding or rigidity, no organomegaly EXTREMITIES: Right fourth toe with swelling redness ulcer on the top no purulent drainage SKIN: No rash, no masses palpable. NEUROLOGICAL: The patient is awake, alert, oriented x3, mood and affect normal. Results CBC & Chem 7: 09/15/24 04:46 09/15/24 04:46 Labs: Abnormal Lab Results - Last 24 Hours (Table) 09/13/24 09/13/24 09/14/24 Range/Units 21:25 21:25 06:28 RBC 4.19 L (4.30-5.90) m/uL Hgb 11.8 L (13.0-17.5) gm/dL Hct 36.3 L (39.0-53.0) % Chloride 109 H (98-107) mmol/L BUN 21 H (9-20) mg/dL Creatinine 1.53 H (0.66-1.25) mg/dL Glucose 284 H (74-99) mg/dL POC Glucose (mg/dL) 146 H (70-110) mg/dL Assessment and Plan (1) Allergy to multiple antibiotics Current Visit: Yes Status: Acute Code(s): Z88.1 - ALLERGY STATUS TO OTHER ANTIBIOTIC AGENTS SNOMED Code(s): 220184252 (2) Diabetic foot infection Current Visit: No Status: Acute Code(s): E11.628 - TYPE 2 DIABETES MELLITUS WITH OTHER SKIN COMPLICATIONS; L08.9 - LOCAL INFECTION OF THE SKIN AND SUBCUTANEOUS TISSUE, UNSP SNOMED Code(s): 956363518 (3) Diabetic foot ulcer Current Visit: No Status: Acute Code(s): E11.621 - TYPE 2 DIABETES MELLITUS WITH FOOT ULCER; L97.509 - NON-PRESSURE CHRONIC ULCER OTH PRT UNSP FOOT W UNSP SEVERITY SNOMED Code(s): 373505264 Plan: 1patient presented to hospital with increasing swelling redness to the right. This patient did have superficial ulceration and concerning for cellulitis/diabetic foot infection symptom has been going on for about a week failing outpatient oral doxycycline therapy. 2we will need to cover for resistant gram-positive as well as gram-negative pathogen previous culture positive for Pseudomonas aeruginosa. 3patient with multiple antibiotic ALLERGIES that would limit the number of antibiotic safe to use 4I will start the patient on daptomycin 6 mg/kg daily along with cefepime 2 g every 8 hourly for the culture to finalize 5the patient did have a small abscess to the nose bridge for which ENT has been consulted for possible drainage We will follow on clinical condition and cultures to further adjust medication if needed Thank you for this consultation we will follow the patient along with you Dictation was produced using [employer] dictation software. please excuse any grammatical, word or spelling errors. Time with Patient: Greater than 30
--- NOTE | 2024-09-15 15:36 | P.PN ---
Subjective Progress Note Date: 09/15/24 Principal diagnosis: Reason for follow-up is right diabetic foot toe ulcer and cellulitis Patient is a 33-year-old male with a past medical history significant for diabetes mellitus hypertension patient did have a multiple diabetic foot toes infection with amputation of multiple toes patient presenting to the hospital for evaluation of increasing swelling redness to the right fourth toe and has been diagnosed with diabetic foot ulcer/cellulitis. On today's evaluation that is 09/15/2024, the patient continues to be afebrile, the patient is on room air and breathing comfortably, the Pt denies having any chest pain or cough, the patient denies having any abdominal pain no vomiting or any diarrhea and denies having any worsening pain to the right fourth toe. Patient medical 6 months The patient sed rate is 8 creatinine is 1.1 local culture growing presumptive M RSA blood cultures are pending Objective - Vital Signs Vital signs: Vital Signs Temp 98.0 F 09/15/24 06:49 Pulse 83 09/15/24 06:49 Resp 14 09/15/24 06:49 BP 146/92 09/15/24 06:49 Pulse Ox 98 09/15/24 06:49 FiO2 Intake & Output 09/14/24 09/15/24 09/15/24 18:59 06:59 18:59 Other: Voiding Method Toilet # Voids 1 - Exam GENERAL DESCRIPTION: Middle-age male lying in bed in no distress RESPIRATORY SYSTEM: Unlabored breathing , decreased breath sounds at bases HEART: S1 S2 regular rate and rhythm , ABDOMEN: Soft , no tenderness EXTREMITIES: Right foot is currently dressed - Labs CBC & Chem 7: 09/15/24 04:46 09/15/24 04:46 Labs: Abnormal Lab Results - Last 24 Hours (Table) 09/14/24 09/14/24 09/14/24 Range/Units 11:34 16:33 20:20 RBC (4.40-5.60) X 10*6/uL Hgb (13.0-17.0) g/dL Hct (39.6-50.0) % Glucose (70-110) mg/dL POC Glucose (mg/dL) 150 H 176 H 219 H (70-110) mg/dL Hemoglobin A1c (<=6.0) % Total Protein (6.2-8.2) g/dL Albumin (3.8-4.9) g/dL Albumin/Globulin Ratio (1.60-3.17) Ratio 09/15/24 09/15/24 09/15/24 Range/Units 04:46 04:46 04:46 RBC 3.79 L (4.40-5.60) X 10*6/uL Hgb 10.5 L (13.0-17.0) g/dL Hct 31.7 L (39.6-50.0) % Glucose 150 H (70-110) mg/dL POC Glucose (mg/dL) (70-110) mg/dL Hemoglobin A1c 7.2 H (<=6.0) % Total Protein 5.8 L (6.2-8.2) g/dL Albumin 3.4 L (3.8-4.9) g/dL Albumin/Globulin Ratio 1.42 L (1.60-3.17) Ratio 09/15/24 Range/Units 06:19 RBC (4.40-5.60) X 10*6/uL Hgb (13.0-17.0) g/dL Hct (39.6-50.0) % Glucose (70-110) mg/dL POC Glucose (mg/dL) 221 H (70-110) mg/dL Hemoglobin A1c (<=6.0) % Total Protein (6.2-8.2) g/dL Albumin (3.8-4.9) g/dL Albumin/Globulin Ratio (1.60-3.17) Ratio Microbiology - Last 24 Hours (Table) 09/13/24 21:25 Gram Stain - Preliminary Toe - Right Third Wound Culture - Preliminary Presumptive MRSA 09/13/24 21:25 Blood Culture - Preliminary Blood Assessment and Plan (1) Allergy to multiple antibiotics Current Visit: Yes Status: Acute Code(s): Z88.1 - ALLERGY STATUS TO OTHER ANTIBIOTIC AGENTS SNOMED Code(s): 809632793 (2) Diabetic foot infection Current Visit: No Status: Acute Code(s): E11.628 - TYPE 2 DIABETES MELLITUS WITH OTHER SKIN COMPLICATIONS; L08.9 - LOCAL INFECTION OF THE SKIN AND SUBCUTANEOUS TISSUE, UNSP SNOMED Code(s): 889441655 (3) Diabetic foot ulcer Current Visit: No Status: Acute Code(s): E11.621 - TYPE 2 DIABETES MELLITUS WITH FOOT ULCER; L97.509 - NON-PRESSURE CHRONIC ULCER OTH PRT UNSP FOOT W UNSP SEVERITY SNOMED Code(s): 269712249 Plan: 1patient presented to hospital with increasing swelling redness to the right. This patient did have superficial ulceration and concerning for cellulitis/diabetic foot infection symptom has been going on for about a week failing outpatient oral doxycycline therapy. 2patient with multiple antibiotic ALLERGIES that would limit the number of antibiotic safe to use 3local culture currently growing present MRSA for the patient is covered with the daptomycin if no gram-negative cefepime will be discontinued 4-awaiting ENT evaluation for the nose bridge abscess if drain culture should be obtained Dictation was produced using [employer] dictation software. please excuse any grammatical, word or spelling errors. Time with Patient: Less than 30
[2024-09-15 16:26] LABS: Glucose,Whole Blood 193 mg/dL (70-110)
--- NOTE | 2024-09-15 19:22 | CT ---
EXAMINATION TYPE: CT facial bones w con DATE OF EXAM: 09/15/2024 6:38 PM COMPARISON: None. CLINICAL INDICATION: Male, 33 years old with history of facial abscess, Abscess on left side of nose x1wk. TECHNIQUE: Multiple unenhanced axial CT images were obtained of the facial bones soft tissue and bone windows. Coronal, axial and sagittal reformatted images were also provided in soft tissue and bone windows and submitted for interpretation . Contrast used:100 ml mL of Isovue 300 with IV Contrast, (none if empty) Oral contrast used: (none if empty) CT DLP: 545.4 mGycm, Automated exposure control for dose reduction was used. FINDINGS: There is phlegmonous fat stranding and edema along the left nose. Discrete fluid collection not definitively visualized. No osseous erosion. There is no evidence of fracture, subluxation, disl ocation. The orbital contents are unremarkable.The temporal-mandibular joints appear symmetric. The v isualized portion of the paranasal sinuses appear clear. IMPRESSION: There is phlegmonous fat stranding and edema along the left nose. Discrete fluid collection not defin itively visualized. Consider repeat exam after antibiotics. [facility], , 09/15/2024 7:20 PM
[2024-09-15 20:34] LABS: Glucose,Whole Blood 208 mg/dL (70-110)
[2024-09-15] MEDS: INSULIN DETEMIR (LEVEMIR) 100 UNIT/ML SYR SQ SCH (21:09)
[2024-09-16 06:20] LABS: Glucose,Whole Blood 182 mg/dL (70-110)
[2024-09-16 11:41] LABS: Glucose,Whole Blood 277 mg/dL (70-110)
--- NOTE | 2024-09-16 13:05 | P.PN ---
Subjective Progress Note Date: 09/16/24 33 years old male with past medical history of multiple medical problems including diabetes mellitus and neuropathy. Presents because of right diabetic foot ulcer infection of the right second toe. 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 Aranda Patient denies chest pain or dyspnea. No other complaints Patient denies smoking alcohol or illicit drugs. He is afebrile Creatinine 1.5 which looks like his baseline Rest of other labs like CBC, BMP, LFT were unremarkable. Foot x-ray showing suspicion of cortical erosion to suggest osteomyelitis Wound culture is pending. Currently is on clindamycin 09/15 Patient with no new complaint Is with infection with dressing in place for his right foot Culture is growing presumptive MRSA, currently he is covered with IV daptomycin and cefepime Also patient complains from left nasal lesion, concerns for infection and possible fluid collection, infectious disease consult already on the case, ENT team are consulted since admission Hemoglobin A1c 7.2%.pt is informed he says he was just on sliding scale at home. I talked to him going to add Levemir to the schedule sliding scale and he agrees 09/16: patient seen and evaluated at bedside, remains on room air. Patient denies of any acute issues, nasal lesion noted to be a furuncle getting better EXAM GENERAL: The patient is alert and oriented x3, not in any acute distress. Well developed, well nourished. HEENT: Pupils are round and equally reacting to light. EOMI. Left nasal lesion suspicious for infection/furuncle CARDIOVASCULAR: S1 and S2 present. No murmurs, rubs, or gallops. PULMONARY: Chest is clear to auscultation, no wheezing , no crackles. ABDOMEN: Soft, nontender, nondistended, normoactive bowel sounds. No palpable organomegaly. MUSCULOSKELETAL: No joint swelling or deformity. EXTREMITIES: Right second toe foot ulcer with cellulitis, wound bandage NEUROLOGICAL: Gross neurological examination did not reveal any focal deficits. SKIN: Left nasal furuncle noted Assessment and Plan * diabetic foot ulcer with suspected osteomyelitis right foot * Left nasal lesion infection * Diabetic neuropathy * Diabetes mellitus. Hemoglobin A1c 7.2% * Hypertension * Chronic kidney disease stage III Plan: Infectious disease consult, continue cefepime and daptomycin, antibiotic management per infectious disease, wound culture positive for MRSA ENT consult, CT face reviewed, in regards to diabetes mellitus Accu-Cheks ACH S continue desk monitor Monitor glucose. Labs and medication were reviewed. DVT prophylaxis: Subcutaneous heparin GI Prophylaxis: Pepcid Objective - Vital Signs Vital signs: Vital Signs Temp 97.8 F 09/16/24 07:40 Pulse 69 09/16/24 07:40 Resp 18 09/16/24 07:40 BP 145/92 09/16/24 07:40 Pulse Ox 98 09/16/24 07:40 FiO2 Intake & Output 09/15/24 09/16/24 09/16/24 18:59 06:59 18:59 Intake Total 237 Balance 237 Intake: Oral 237 Other: Voiding Method Toilet Toilet # Voids 4 4 # Bowel Movements 1 1 - Labs CBC & Chem 7: 09/15/24 04:46 09/15/24 04:46 Labs: Abnormal Lab Results - Last 24 Hours (Table) 09/15/24 09/15/24 09/15/24 Range/Units 11:29 16:25 20:33 POC Glucose (mg/dL) 190 H 193 H 208 H (70-110) mg/dL 09/16/24 Range/Units 06:18 POC Glucose (mg/dL) 182 H (70-110) mg/dL Microbiology - Last 24 Hours (Table) 09/13/24 21:25 Blood Culture - Preliminary Blood 09/13/24 21:25 Gram Stain - Preliminary Toe - Right Third Wound Culture - Preliminary Presumptive MRSA
--- NOTE | 2024-09-16 14:50 | P.PN ---
Subjective Progress Note Date: 09/16/24 Principal diagnosis: Reason for follow-up is right diabetic foot toe ulcer and cellulitis Patient is a 33-year-old male with a past medical history significant for diabetes mellitus hypertension patient did have a multiple diabetic foot toes infection with amputation of multiple toes patient presenting to the hospital for evaluation of increasing swelling redness to the right fourth toe and has been diagnosed with diabetic foot ulcer/cellulitis. On today's evaluation that is 09/16/2024, patient did not have any fever and denies any chills, patient is breathing comfortably on room air, patient with no chest pain or cough patient did not have any abdominal pain nausea vomiting or any loose stools. No new lab has been obtained today culture with MRSA resistant to tetracycline sensitive to Bactrim Objective - Vital Signs Vital signs: Vital Signs Temp 97.8 F 09/16/24 07:40 Pulse 69 09/16/24 07:40 Resp 18 09/16/24 07:40 BP 145/92 09/16/24 07:40 Pulse Ox 98 09/16/24 07:40 FiO2 Intake & Output 09/15/24 09/16/24 09/16/24 18:59 06:59 18:59 Intake Total 237 Balance 237 Intake: Oral 237 Other: Voiding Method Toilet Toilet # Voids 4 4 # Bowel Movements 1 1 - Exam GENERAL DESCRIPTION: Middle-age male lying in bed in no distress RESPIRATORY SYSTEM: Unlabored breathing , decreased breath sounds at bases HEART: S1 S2 regular rate and rhythm , ABDOMEN: Soft , no tenderness EXTREMITIES: Right foot is currently dressed - Labs CBC & Chem 7: 09/15/24 04:46 09/15/24 04:46 Labs: Abnormal Lab Results - Last 24 Hours (Table) 09/15/24 09/15/24 09/15/24 Range/Units 11:29 16:25 20:33 POC Glucose (mg/dL) 190 H 193 H 208 H (70-110) mg/dL 09/16/24 Range/Units 06:18 POC Glucose (mg/dL) 182 H (70-110) mg/dL Microbiology - Last 24 Hours (Table) 09/13/24 21:25 Blood Culture - Preliminary Blood 09/13/24 21:25 Gram Stain - Preliminary Toe - Right Third Wound Culture - Preliminary Presumptive MRSA Assessment and Plan (1) Allergy to multiple antibiotics Current Visit: Yes Status: Acute Code(s): Z88.1 - ALLERGY STATUS TO OTHER ANTIBIOTIC AGENTS SNOMED Code(s): 552937497 (2) Diabetic foot infection Current Visit: No Status: Acute Code(s): E11.628 - TYPE 2 DIABETES MELLITUS WITH OTHER SKIN COMPLICATIONS; L08.9 - LOCAL INFECTION OF THE SKIN AND SUBCUTANEOUS TISSUE, UNSP SNOMED Code(s): 704436829 (3) Diabetic foot ulcer Current Visit: No Status: Acute Code(s): E11.621 - TYPE 2 DIABETES MELLITUS WITH FOOT ULCER; L97.509 - NON-PRESSURE CHRONIC ULCER OTH PRT UNSP FOOT W UNSP SEVERITY SNOMED Code(s): 085958054 Plan: 1patient presented to hospital with increasing swelling redness to the right. This patient did have superficial ulceration and concerning for cellulitis/diabetic foot infection symptom has been going on for about a week failing outpatient oral doxycycline therapy. 2patient with multiple antibiotic ALLERGIES that would limit the number of antibiotic safe to use 3local culture currently growing MRSA for which the patient is being treated with the daptomycin with no gram-negative will discontinue cefepime Dictation was produced using [employer] dictation software. please excuse any grammatical, word or spelling errors. Time with Patient: Less than 30
[2024-09-16] MEDS: LINEZOLID 600 MG TAB PO STA (15:44)
[2024-09-16 16:57] LABS: Glucose,Whole Blood 127 mg/dL (70-110)
[2024-09-16 20:45] LABS: Glucose,Whole Blood 164 mg/dL (70-110)
--- NOTE | 2024-09-16 22:07 | CONS ---
CONSULTATION REASON FOR CONSULTATION: Facial abscess. HISTORY OF PRESENT ILLNESS: This patient is a pleasant 33-year-old male, who was admitted via the [facility] Emergency Room. The patient presented with a draining right fourth toe. He is a well known diabetic and has experienced episodes of MRSA infections. He has a history of type 1 diabetes mellitus, neuropathy, vascular disease of the lower extremities, multiple toe amputations from the right foot. The patient was subsequently admitted to the hospital and an Infectious Disease consult was obtained to manage the patient's draining right toe. Cultures have been obtained and the results are pending, however, it is assumed that this most likely represents an MRSA infection. The patient states that approximately 1 week prior to his admission, he developed swelling and pain in the region of the left side of the bridge of his nose. He denied squeezing the area, but it gradually got larger and he developed significant pain and a sensation of pressure in the area. He states the area has not drained. He feels the area has gotten smaller and less painful since this admission and since being on intravenous antibiotics. PAST MEDICAL HISTORY: Reveals the patient has known allergies to sulfa, Bactrim, and vancomycin. HOME MEDICATIONS: Include: 1. Lipitor. 2. Insulin. 3. Lopressor. 4. Pepcid. 5. Norvasc. 6. Prinivil. REVIEW OF SYSTEMS: CARDIOVASCULAR: Positive for hypertension and peripheral vascular disease. METABOLIC/ENDOCRINE: Positive for type 1 diabetes mellitus and hypercholesterolemia. GASTROINTESTINAL: Positive for GERD that is (gastroesophageal reflux disorder). Remainder of review of systems unremarkable. PHYSICAL EXAMINATION: GENERAL: This patient is a 33-year-old male, who was alert and cooperative. HEENT: The patient is normocephalic. Tympanic membranes are normal. Middle ear spaces are free of any fluid infection. Pupils equal, round, and reactive to light and accommodation. Extraocular movements within normal limits. Intranasal examination reveals the septum is slightly deviated to the left. No evidence of any septal hematomas or intranasal swellings or lesions. There is mild hypertrophy of inferior turbinates bilaterally and a moderate amount of clear mucus on the mucous membranes and draining down the posterior pharynx. Examination of oropharynx reveals the patient is partially edentulous. Examination of the nose reveals on palpation the area to be nonfluctuant, firm, raised, maculopapular, moderately tender, and well- circumscribed. A CT scan with contrast of the facial bones was obtained and it shows the area to have the presence of phlegmon but no evidence of a true abscess. Palpation of the neck is negative for any neck mass or lymphadenopathy. Cranial nerves II through XII and the remainder of the head and neck exam is unremarkable. CHEST/CARDIOVASCULAR: Lung baca are clear. The patient is in regular sinus rhythm. S1, S2 are present without any murmurs. ABDOMEN: There is no evidence of any masses, megaly, or tenderness. The abdomen is soft. The remainder of physical exam is unremarkable. ASSESSMENT: 1. Left facial cellulitis involving the left lateral area of the bridge of the nose. No evidence of orbital involvement or abscess. 2. Type 1 diabetes mellitus. 3. Peripheral vascular disease. 4. Gastroesophageal reflux disease. 5. Hypertension. 6. Hypercholesterolemia. PLAN: I reviewed the patient's CT scan and I agree with the radiologist that there was no evidence of an actual abscess cavity. The physical findings were in agreement with a negative finding for an abscess. However, rather than I and D this area, I used 10 cc syringe with an 18-gauge needle and attempted to aspirate the area with multiple sticks with the needle being carried down to the bone and negative pressure was applied as the needle was withdrawn. Absolutely no purulent or serous material was aspirated, therefore there was nothing to be cultured. This confirms the lack of abscess formation. At this point, I feel that the patient is on intravenous antibiotics that should not only control the infection in his right foot, but also should control any infection in this area of left facial cellulitis. I have advised the nurses that if they would like, they may apply warm compresses, but other than that suggest that I have absolutely nothing from the ENT standpoint to contribute to this case. Certainly, it is not a surgical case. If any drainage should develop, it will probably drain out through the aspiration sites from the 18-gauge needle. I will sign off this case at this time, however, if my services are needed further, please feel free to re- consult my office. I would like to take this opportunity to thank you for allowing me to assist you in the care of your patient. If I can be of any further assistance, please feel free to call my office. MMCHRISTIANO / VEDAN: [phone] / [email or web address]
[2024-09-17 06:38] LABS: Glucose,Whole Blood 239 mg/dL (70-110)
[2024-09-17 09:52] LABS: HCT 34.2 % (39.6-50.0); MCH 27.9 pg (27.0-32.0); MCHC 32.2 g/dL (32.0-37.0); MCV 86.8 FL (80.0-97.0); Mean Platelet Volume 10.4 FL (9.5-12.2); NRBC Per 100 WBC 0 X 10*3/uL (0.00-0.01); Platelet Count 286 X 10*3/uL (140-440); RBC 3.94 X 10*6/uL (4.40-5.60); RDW 12.3 % (11.5-14.5); WBC 7.69 X 10*3/uL (4.50-10.00)
[2024-09-17 10:07] LABS: BUN/Creat Ratio 16.31 Ratio (12.00-20.00); Blood Urea Nitrogen 21.2 mg/dL (9.0-27.0); Calcium 8.9 mg/dL (8.7-10.3); Carbon Dioxide 27.3 mmol/L (21.6-31.8); Chloride 104 mmol/L (96-109); Glucose 248 mg/dL (70-110); Potassium 5.2 mmol/L (3.5-5.5); Sodium 138 mmol/L (135-145)
[2024-09-17 11:43] LABS: Glucose,Whole Blood 246 mg/dL (70-110)
--- NOTE | 2024-09-17 12:11 | P.PN ---
Subjective Progress Note Date: 09/17/24 33 years old male with past medical history of multiple medical problems including diabetes mellitus and neuropathy. Presents because of right diabetic foot ulcer infection of the right second toe. 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 Aranda Patient denies chest pain or dyspnea. No other complaints Patient denies smoking alcohol or illicit drugs. He is afebrile Creatinine 1.5 which looks like his baseline Rest of other labs like CBC, BMP, LFT were unremarkable. Foot x-ray showing suspicion of cortical erosion to suggest osteomyelitis Wound culture is pending. Currently is on clindamycin 09/15 Patient with no new complaint Is with infection with dressing in place for his right foot Culture is growing presumptive MRSA, currently he is covered with IV daptomycin and cefepime Also patient complains from left nasal lesion, concerns for infection and possible fluid collection, infectious disease consult already on the case, ENT team are consulted since admission Hemoglobin A1c 7.2%.pt is informed he says he was just on sliding scale at home. I talked to him going to add Levemir to the schedule sliding scale and he agrees 09/16: patient seen and evaluated at bedside, remains on room air. Patient denies of any acute issues, nasal lesion noted to be a furuncle getting better 09/17- patient seen and evaluated bedside, patient remains afebrile systolic blood pressure in 140s, remains on room air, blood work pending, blood glucose ranging between low 200s, antibiotic changed to daptomycin monotherapy, cefepime discontinued EXAM GENERAL: The patient is alert and oriented x3, not in any acute distress. Well developed, well nourished. HEENT: Pupils are round and equally reacting to light. EOMI. Left nasal lesion suspicious for infection/furuncle CARDIOVASCULAR: S1 and S2 present. No murmurs, rubs, or gallops. PULMONARY: Chest is clear to auscultation, no wheezing , no crackles. ABDOMEN: Soft, nontender, nondistended, normoactive bowel sounds. No palpable organomegaly. MUSCULOSKELETAL: No joint swelling or deformity. EXTREMITIES: Right second toe foot ulcer with cellulitis, wound bandage NEUROLOGICAL: Gross neurological examination did not reveal any focal deficits. SKIN: Left nasal furuncle noted Assessment and Plan * diabetic foot ulcer with suspected osteomyelitis right foot * Left nasal lesion infection folliculitis * Diabetic neuropathy * Diabetes mellitus. Hemoglobin A1c 7.2% * Hypertension * Chronic kidney disease stage III Plan: Infectious disease consult, continue daptomycin, cefepime discontinueantibiotic management per infectious disease, wound culture positive for MRSA ENT consult pending nonurgent , CT face reviewed, continue antibiotics in regards to diabetes mellitus Accu-Cheks ACH S continue monitoring and evaluation advisor Mon itor glucose. Labs and medication were reviewed. DVT prophylaxis: Subcutaneous heparin GI Prophylaxis: Pepcid Objective - Vital Signs Vital signs: Vital Signs Temp 97.9 F 09/17/24 07:45 Pulse 71 09/17/24 07:45 Resp 18 09/17/24 07:45 BP 149/88 09/17/24 07:45 Pulse Ox 99 09/17/24 07:45 FiO2 Intake & Output 09/16/24 09/17/24 09/17/24 18:59 06:59 18:59 Intake Total 711 2160 Balance 711 2160 Intake: Oral 711 2160 Other: Voiding Method Toilet Toilet # Voids 4 6 - Labs CBC & Chem 7: 09/17/24 04:06 09/17/24 04:06 Labs: Abnormal Lab Results - Last 24 Hours (Table) 09/16/24 09/16/24 09/16/24 Range/Units 11:40 16:55 20:43 POC Glucose (mg/dL) 277 H 127 H 164 H (70-110) mg/dL 09/17/24 Range/Units 06:36 POC Glucose (mg/dL) 239 H (70-110) mg/dL Microbiology - Last 24 Hours (Table) 09/13/24 21:25 Blood Culture - Preliminary Blood 09/13/24 21:25 Anaerobic Culture - Preliminary Toe - Right Third 09/13/24 21:25 Gram Stain - Final Toe - Right Third Wound Culture - Final Methicillin resist S. aureus
--- NOTE | 2024-09-17 14:52 | P.PN ---
Subjective Progress Note Date: 09/17/24 Principal diagnosis: Reason for follow-up is right diabetic foot toe ulcer and cellulitis Patient is a 33-year-old male with a past medical history significant for diabetes mellitus hypertension patient did have a multiple diabetic foot toes infection with amputation of multiple toes patient presenting to the hospital for evaluation of increasing swelling redness to the right fourth toe and has been diagnosed with diabetic foot ulcer/cellulitis. On today's evaluation that is 09/17/2024, Patient is afebrile patient is currently on room air and denies having any shortness of breath, the patient denies any chest pain or cough, the patient denies any nausea vomiting did not have any abdominal pain and no diarrhea denies pain to the right fourth toe. Patient white count 7.69, creatinine is 1.3 local culture with MRSA and out of culture so far negative Objective - Vital Signs Vital signs: Vital Signs Temp 97.9 F 09/17/24 07:45 Pulse 71 09/17/24 07:45 Resp 18 09/17/24 07:45 BP 149/88 09/17/24 07:45 Pulse Ox 99 09/17/24 07:45 FiO2 Intake & Output 09/16/24 09/17/24 09/17/24 18:59 06:59 18:59 Intake Total 711 2160 Balance 711 2160 Intake: Oral 711 2160 Other: Voiding Method Toilet Toilet # Voids 4 6 2 - Exam GENERAL DESCRIPTION: Middle-age male lying in bed in no distress RESPIRATORY SYSTEM: Unlabored breathing , decreased breath sounds at bases HEART: S1 S2 regular rate and rhythm , ABDOMEN: Soft , no tenderness EXTREMITIES: Right foot is currently dressed - Labs CBC & Chem 7: 09/17/24 04:06 09/17/24 04:06 Labs: Abnormal Lab Results - Last 24 Hours (Table) 09/16/24 09/16/24 09/17/24 Range/Units 16:55 20:43 04:06 RBC 3.94 L (4.40-5.60) X 10*6/uL Hgb 11.0 L (13.0-17.0) g/dL Hct 34.2 L (39.6-50.0) % Glucose (70-110) mg/dL POC Glucose (mg/dL) 127 H 164 H (70-110) mg/dL 09/17/24 09/17/24 09/17/24 Range/Units 04:06 06:36 11:42 RBC (4.40-5.60) X 10*6/uL Hgb (13.0-17.0) g/dL Hct (39.6-50.0) % Glucose 248 H (70-110) mg/dL POC Glucose (mg/dL) 239 H 246 H (70-110) mg/dL Microbiology - Last 24 Hours (Table) 09/13/24 21:25 Blood Culture - Preliminary Blood 09/13/24 21:25 Anaerobic Culture - Preliminary Toe - Right Third 09/13/24 21:25 Gram Stain - Final Toe - Right Third Wound Culture - Final Methicillin resist S. aureus Assessment and Plan (1) Allergy to multiple antibiotics Current Visit: Yes Status: Acute Code(s): Z88.1 - ALLERGY STATUS TO OTHER ANTIBIOTIC AGENTS SNOMED Code(s): 763139792 (2) Diabetic foot infection Current Visit: No Status: Acute Code(s): E11.628 - TYPE 2 DIABETES MELLITUS WITH OTHER SKIN COMPLICATIONS; L08.9 - LOCAL INFECTION OF THE SKIN AND SUBCUTANEOUS TISSUE, UNSP SNOMED Code(s): 892891165 (3) Diabetic foot ulcer Current Visit: No Status: Acute Code(s): E11.621 - TYPE 2 DIABETES MELLITUS WITH FOOT ULCER; L97.509 - NON-PRESSURE CHRONIC ULCER OTH PRT UNSP FOOT W UNSP SEVERITY SNOMED Code(s): 124629111 Plan: 1patient presented to hospital with increasing swelling redness to the right. This patient did have superficial ulceration and concerning for cellulitis/diabetic foot infection symptom has been going on for about a week failing outpatient oral doxycycline therapy. 2patient with multiple antibiotic ALLERGIES that would limit the number of antibiotic safe to use 3local culture currently growing MRSA, blood culture has been negative 4patient currently on daptomycin to continue while inpatient finishing therapy with Zyvox 600 mg twice daily for 2 weeks Dictation was produced using [employer] software. please excuse any grammatical, word or spelling errors. Time with Patient: Less than 30
[2024-09-17 16:36] LABS: Glucose,Whole Blood 235 mg/dL (70-110)
[2024-09-17 21:20] LABS: Glucose,Whole Blood 242 mg/dL (70-110)
[2024-09-18 06:48] LABS: Glucose,Whole Blood 223 mg/dL (70-110)
[2024-09-18 08:48] LABS: HCT 33.7 % (39.6-50.0); HGB 11.2 g/dL (13.0-17.0); MCH 28.2 pg (27.0-32.0); MCHC 33.2 g/dL (32.0-37.0); MCV 84.9 FL (80.0-97.0); Mean Platelet Volume 10.3 FL (9.5-12.2); NRBC Per 100 WBC 0 X 10*3/uL (0.00-0.01); Platelet Count 276 X 10*3/uL (140-440); RBC 3.97 X 10*6/uL (4.40-5.60); RDW 12.4 % (11.5-14.5); WBC 7.39 X 10*3/uL (4.50-10.00)
[2024-09-18 08:53] LABS: Blood Urea Nitrogen 25.8 mg/dL (9.0-27.0); Glucose 224 mg/dL (70-110)
[2024-09-18 08:54] LABS: Calcium 9.1 mg/dL (8.7-10.3); Carbon Dioxide 25.8 mmol/L (21.6-31.8); Chloride 107 mmol/L (96-109); Sodium 141 mmol/L (135-145)
[2024-09-18 11:35] LABS: Glucose,Whole Blood 267 mg/dL (70-110)
--- NOTE | 2024-09-18 12:25 | P.PN ---
Subjective Progress Note Date: 09/18/24 Principal diagnosis: Reason for follow-up is right diabetic foot toe ulcer and cellulitis Patient is a 33-year-old male with a past medical history significant for diabetes mellitus hypertension patient did have a multiple diabetic foot toes infection with amputation of multiple toes patient presenting to the hospital for evaluation of increasing swelling redness to the right fourth toe and has been diagnosed with diabetic foot ulcer/cellulitis. On today's evaluation that is 09/18/2024, patient has been afebrile, patient is breathing comfortably and is currently on room air, patient denies having any significant cough no chest pain, patient denies nausea vomiting or diarrhea and no abdominal pain and denies pain to the right fourth toe. Patient white count 7.39, creat is 1.2 local culture with MRSA and oral culture has been negative Objective - Vital Signs Vital signs: Vital Signs Temp 98.0 F 09/18/24 07:36 Pulse 76 09/18/24 07:36 Resp 16 09/18/24 07:36 BP 139/92 09/18/24 07:36 Pulse Ox 97 09/18/24 07:36 FiO2 Intake & Output 09/17/24 09/18/24 09/18/24 18:59 06:59 18:59 Other: Voiding Method Toilet # Voids 5 1 1 - Exam GENERAL DESCRIPTION: Middle-age male lying in bed in no distress RESPIRATORY SYSTEM: Unlabored breathing , decreased breath sounds at bases HEART: S1 S2 regular rate and rhythm , ABDOMEN: Soft , no tenderness EXTREMITIES: Right foot is currently dressed - Labs CBC & Chem 7: 09/18/24 03:13 09/18/24 03:13 Labs: Abnormal Lab Results - Last 24 Hours (Table) 09/17/24 09/17/24 09/17/24 Range/Units 11:42 16:35 21:18 RBC (4.40-5.60) X 10*6/uL Hgb (13.0-17.0) g/dL Hct (39.6-50.0) % BUN/Creatinine Ratio (12.00-20.00) Ratio Glucose (70-110) mg/dL POC Glucose (mg/dL) 246 H 235 H 242 H (70-110) mg/dL 09/18/24 09/18/24 09/18/24 Range/Units 03:13 03:13 06:46 RBC 3.97 L (4.40-5.60) X 10*6/uL Hgb 11.2 L (13.0-17.0) g/dL Hct 33.7 L (39.6-50.0) % BUN/Creatinine Ratio 21.50 H (12.00-20.00) Ratio Glucose 224 H (70-110) mg/dL POC Glucose (mg/dL) 223 H (70-110) mg/dL Assessment and Plan (1) Allergy to multiple antibiotics Current Visit: Yes Status: Acute Code(s): Z88.1 - ALLERGY STATUS TO OTHER ANTIBIOTIC AGENTS SNOMED Code(s): 664421266 (2) Diabetic foot infection Current Visit: No Status: Acute Code(s): E11.628 - TYPE 2 DIABETES MELLITUS WITH OTHER SKIN COMPLICATIONS; L08.9 - LOCAL INFECTION OF THE SKIN AND SUBCUTANEOUS TISSUE, UNSP SNOMED Code(s): 453675847 (3) Diabetic foot ulcer Current Visit: No Status: Acute Code(s): E11.621 - TYPE 2 DIABETES MELLITUS WITH FOOT ULCER; L97.509 - NON-PRESSURE CHRONIC ULCER OTH PRT UNSP FOOT W UNSP SEVERITY SNOMED Code(s): 084816081 Plan: 1patient presented to hospital with increasing swelling redness to the right. This patient did have superficial ulceration and concerning for cellulitis/diabetic foot infection symptom has been going on for about a week failing outpatient oral doxycycline therapy. 2patient with multiple antibiotic ALLERGIES that would limit the number of antibiotic safe to use 3local culture currently growing MRSA, blood culture has been negative 4patient did have some clinical improvement he will get a dose of daptomycin today afterwards able to go home on Zyvox 600 mg twice daily for 2 weeks, prescription sent to the pharmacy Dictation was produced using [employer] dictation software. please excuse any gramm atical, word or spelling errors. Time with Patient: Less than 30
[2024-09-18 15:35] VITALS: BP 145/88; PULSE 88; RESP 17; TEMP 98.7
== END 2024-09-18 17:30 | disposition home health service (06) | DRG 380 ==
LOC: EC 19:57 → 4SSUR 09-14 00:07
PROVIDERS: ADMIT Hospitalist; ATTEND Hospitalist
DX: E10.621 Type 1 diabetes mellitus with foot ulcer (principal); E10.628 Type 1 diabetes mellitus with other skin complications; L03.039 Cellulitis of unspecified toe; Z83.3 Family history of diabetes mellitus; E10.42 Type 1 diabetes mellitus with diabetic polyneuropathy; N18.30 Chronic kidney disease, stage 3 unspecified; E10.22 Type 1 diabetes mellitus with diabetic chronic kidney disease; L03.211 Cellulitis of face; L97.519 Non-pressure chronic ulcer of other part of right foot with unspecified severity; B95.62 Methicillin resistant Staphylococcus aureus infection as the cause of diseases classified elsewhere; I12.9 Hypertensive chronic kidney disease with stage 1 through stage 4 chronic kidney disease, or unspecified chronic kidney disease; L02.01 Cutaneous abscess of face; K21.9 Gastro-esophageal reflux disease without esophagitis; E78.00 Pure hypercholesterolemia, unspecified; E10.51 Type 1 diabetes mellitus with diabetic peripheral angiopathy without gangrene; Z79.4 Long term (current) use of insulin; Z88.1 Allergy status to other antibiotic agents; M19.072 Primary osteoarthritis, left ankle and foot; Z79.899 Other long term (current) drug therapy; Z86.14 Personal history of Methicillin resistant Staphylococcus aureus infection; Z88.2 Allergy status to sulfonamides
CPT/HCPCS: 36415; 70487; 80048; 80053; 83036; 85025; 85027; 85652; 86140; 87040; 87070; 87075; 87077; 87186; 87205; 96361; 96365; 99285

== ENCOUNTER 2024-10-05 06:57 | Day surgery (SDC) | payer OTHER ==
[2024-10-05 07:11] LABS: Glucose,Whole Blood 155 mg/dL (70-110)
[2024-10-05 07:14] VITALS: BP 137/91; PULSE 85; RESP 16; TEMP 97.8
== END 2024-10-05 08:42 | disposition home or self-care (01) ==
LOC: CATHCVL 06:57
PROVIDERS: ATTEND Internal Medicine Infectious Disease
DX: M86.171 Other acute osteomyelitis, right ankle and foot (principal)
CPT/HCPCS: 36573; C1751; J0878